=== PATIENT | male | born 1985 | race Caucasian/White ===

== ENCOUNTER 2017-04-14 13:44 | Emergency (ER) | payer MEDICAID ==
[~2017-04-14] VITALS: Ht 188 cm; Wt 102.1 kg
[~2017-04-14 13:44] MED LIST: CIPR500T78 PO; CLNZ.5T PO; DCS100C PO; DIPH1TAB25 PO; FAMO-119 PO; HYDR-757 PO; METR500T PO; Meloxicam; OMEP-10 PO; ONDA-42 PO; RABE20TA PO; SULF1TAB35 PO; TRAM-21 PO; TRAM-42 PO; TRAM50TA2 PO
[2017-04-14] MEDS ORDERED: PANTOPRAZOLE 40 MG/10 ML (PROTONIX) VIAL IV STA (14:39)
[2017-04-14] MEDS ORDERED: LACTATED RINGERS 1,000 ML IV ONE (14:45)
[2017-04-14] MEDS ORDERED: HYOSCYAMINE 0.125 MG (LEVSIN) TAB SL ONE (14:45)
[2017-04-14 15:26] LABS: BASOPHILS % (AUTO) 0 % (0-10); EOSINOPHILS # (AUTO) 0.1 10^3/uL (0.0-0.3); EOSINOPHILS % (AUTO) 2 % (0-10); HEMATOCRIT 44 % (40-54); HEMOGLOBIN 15.9 G/DL (13.3-17.7); LYMPHOCYTES # (AUTO) 2.4 X 10^3 (1.0-4.0); LYMPHOCYTES % (AUTO) 36 % (12-44); MEAN CORPUSCULAR HEMOGLOBIN 30 PG (25-34); MEAN CORPUSCULAR HGB CONC 37 G/DL (32-36); MEAN CORPUSCULAR VOLUME 82 FL (80-99); MEAN PLATELET VOLUME 11.1 FL (7.4-10.4); MONOCYTES # (AUTO) 0.6 X 10^3 (0.0-1.0); MONOCYTES % (AUTO) 9 % (0-12); NEUTROPHILS # (AUTO) 3.6 X 10^3 (1.8-7.8); NEUTROPHILS % (AUTO) 54 % (42-75); PLATELET COUNT 175 10^3/uL (130-400); RED CELL DISTRIBUTION WIDTH 12.4 % (10.0-14.5); WHITE BLOOD COUNT 6.8 10^3/uL (4.3-11.0)
[2017-04-14] MEDS ORDERED: IOHEXOL 350 MG/ML 100 ML (OMNIPAQUE 350) VIAL IV ONE (15:45)
[2017-04-14] MEDS ORDERED: NS 250 ML (IVPB) BAG IV ONE (15:45)
[2017-04-14 15:47] LABS: ALANINE AMINOTRANSFERASE 25 U/L (0-55); ALKALINE PHOSPHATASE 81 U/L (40-136); AMYLASE 79 U/L (25-125); BILIRUBIN,TOTAL 0.5 MG/DL (0.1-1.0); BUN/CREATININE RATIO 13; CALCIUM 9.5 MG/DL (8.5-10.1); CARBON DIOXIDE 21 MMOL/L (21-32); CHLORIDE 111 MMOL/L (98-107); CREATININE SERUM 0.84 MG/DL (0.60-1.30); GFR ESTIMATED > 60; GLUCOSE 89 MG/DL (70-105); LIPASE 18 U/L (8-78); MAGNESIUM 1.8 MG/DL (1.8-2.4); SODIUM 141 MMOL/L (135-145); TOTAL PROTEIN 6.9 GM/DL (6.4-8.2)
--- NOTE | 2017-04-14 16:10 | Diagnostic Imaging Report ---
INDICATION: Abdominal pain. COMPARISON: CT from same day. FINDINGS: Supine and upright views the abdomen demonstrate nonobstructive small bowel gas pattern. Mild amount of air and stool are seen scattered throughout the colon. No abnormal air-fluid levels or large collection of free intraperitoneal air is seen. No abnormal extraosseous calcifications or radiopaque foreign bodies are identified. Bony structures are age-appropriate. IMPRESSION: 1. Nonobstructive small bowel gas pattern. Dictated by: Dictated on workstation # [id number]
[2017-04-14] MEDS ORDERED: RECEIVED CONTRAST (Hold Metformin) IV SCH (16:15)
--- NOTE | 2017-04-14 16:16 | Diagnostic Imaging Report ---
PROCEDURE: CT abdomen and pelvis with contrast. TECHNIQUE: Multiple contiguous axial images were obtained through the abdomen and pelvis after administration of intravenous contrast. INDICATION: Upper mid gastric pain. Fever. COMPARISON: 08/29/2014. FINDINGS: Included portions of the lung bases are clear. CT ABDOMEN: Small bowel loops are nondistended. Normal appendix is identified. There are a few scattered colonic diverticuli, but no CT evidence of acute diverticulitis. The kidneys, adrenal glands, spleen, pancreas and liver have a normal CT appearance. There is no loculated fluid collection, free fluid or free air within the abdomen. No abnormal mesenteric or retrotracheal adenopathy is seen. Bony structures show no acute abnormality. CT PELVIS: Urinary bladder is grossly unremarkable. Pelvic phleboliths are noted. There is no loculated fluid collection, free fluid or free air within the pelvis. No abnormal lymph nodes are identified. Bony structures show no acute abnormality. IMPRESSION: 1. No acute abnormality within the abdomen or pelvis. 2. Colonic diverticulosis, but no CT evidence of acute diverticulitis. Dictated by: Dictated on workstation # [id number]
[2017-04-14 16:21] LABS: BILIRUBIN,URINE NEGATIVE (NEGATIVE); CLARITY,URINE CLEAR; COLOR,URINE YELLOW; GLUCOSE, URINE (UA) NEGATIVE (NEGATIVE); KETONES,URINE NEGATIVE (NEGATIVE); LEUKOCYTE ESTERASE ,URINE 1+ (NEGATIVE); NITRITE,URINE NEGATIVE (NEGATIVE); PH,URINE 6 (5-9); PROTEIN,URINE NEGATIVE (NEGATIVE); UROBILINOGEN,URINE NORMAL (NORMAL)
[2017-04-14] MEDS ORDERED: HYOS0.1283 SL (16:25)
[2017-04-14] MEDS ORDERED: TRAM-42 PO (16:25)
[2017-04-14] MEDS ORDERED: PANT40TA2 PO (16:25)
[2017-04-14] MEDS ORDERED: SUCR1TAB36 PO (16:25)
--- NOTE | 2017-04-14 16:25 | ED Abdominal Pain ---
General Chief Complaint: Abdominal/GI Problems Stated Complaint: ABD PAIN Nursing Triage Note: ARRIVED VIA AMB TO ROOM 04 WITH COMPLAINTS OF ABD PAIN FOR THE LAST THREE NIGHTS AND THEN AGAIN TODAY. Sepsis Screen: No Definite Risk Source of Information: Patient History of Present Illness Date Seen by Provider: Apr 14, 2017 Time Seen by Provider: 14:30 Initial Comments PT ARRIVES VIA POV FROM HOME C/O SHARP EPIGASTRIC PAIN X 3 DAYS--UNABLE TO SLEEP DUE TO PAIN HAS HAD INTERMITTENT EPIGASTRIC PAIN FOR YEARS HAS HAD EGD AND COLONOSCOPY IN THE PAST, AND HAS BEEN DX WITH GERD. STATES HE USED TO THROW UP EVERY MORNING FOR 10 YEARS. STATES HE USED TO BE ON ANTI-ACID MEDICATIONS, BUT WAS DOING WELL AND HAS NOT TAKEN ANY FOR OVER A YEAR. 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 SIMONE MCGHEE Allergies and Home Medications Allergies Coded Allergies: amoxicillin (Verified Allergy, Unknown, 09/15/05) Home Medications Clonazepam 0.5 Mg Tab, 1 MG PO TID PRN for ANXIETY, (Reported) Hyoscyamine Sulfate 0.125 Mg Tab.subl, 1-2 TAB SL Q4H, #15 Prescribed by: EUGENE MCMAHON on 04/14/17 1625 Pantoprazole Sodium 40 Mg Tablet.dr, 40 MG PO DAILY, #15 Prescribed by: EUGENE MCMAHON on 04/14/17 1625 Rabeprazole Sodium 20 Mg Tablet.dr, 20 MG PO BID, (Reported) Sucralfate 1 Gm Tablet, 1 GM PO QIDACHS, #60 Prescribed by: EUGENE MCMAHON on 04/14/17 1625 Tramadol HCl Unknown Strength Tablet, 50 MG PO BID, (Reported) Tramadol HCl 50 Mg Tablet, 50 MG PO Q4H, #20 Prescribed by: EUGENE MCMAHON on 04/14/17 1625 Review of Systems Constitutional: no symptoms reported Respiratory: No Symptoms Reported Cardiovascular: No Symptoms Reported Gastrointestinal: See HPI, Abdominal Pain, Denies Constipated, Denies Diarrhea , Denies Nausea, Poor Appetite, Denies Poor Fluid Intake, Denies Vomiting Genitourinary: No Symptoms Reported Musculoskeletal: no symptoms reported Skin: no symptoms reported Psychiatric/Neurological: No Symptoms Reported Endocrine: No Symptoms Reported Past Bntcges-Ypfork-Ajxupp Hx Patient Social History Alcohol Use: Denies Use Recreational Drug Use: Yes (THC) Drug of Choice: THC Smoking Status: Current Everyday Smoker (1 PPD) Type Used: Cigarettes (1 PPD) Recent Foreign Travel: No Contact w/Someone Who Travel: No Recent Infectious Disease Expo: No Immunizations Up To Date Date of Influenza Vaccine: Jan 28, 2014 Seasonal Allergies Seasonal Allergies: No Surgeries History of Surgeries: Yes (DENTAL SURGERY, EGD/COLONOSCOPY) Respiratory History of Respiratory Disorde: Yes (HX) Respiratory Disorders: Asthma Cardiovascular History of Cardiac Disorders: No Neurological History of Neurological Disord: No Reproductive System Hx Reproductive Disorders: No Genitourinary History of Genitourinary Disor: No Gastrointestinal History of Gastrointestinal Di: Yes (VOMITS EVERY DAY) Gastrointestinal Disorders: Gastroesophageal Reflux Musculoskeletal History of Musculoskeletal Dis: Yes (CHRONIC BACK AND KNEE PAIN) Musculoskeletal Disorders: Chronic Back Pain Endocrine History of Endocrine Disorders: No HEENT History of HEENT Disorders: No Cancer History of Cancer: No Psychosocial History of Psychiatric Problem: Yes ("PANIC ATTACKS") Behavioral Health Disorders: Anxiety Integumentary History of Skin or Integumenta: No Blood Transfusions History of Blood Disorders: No Physical Exam Vital Signs VS - Last 72 Hours, by Label 04/14/17 14:20 Temp 98.0 Pulse 80 Resp 18 B/P (MAP) 145/112 (123) Pulse Ox 96 Capillary Refill : Less Than 3 Seconds General Appearance: WD/WN, no apparent distress, other (LAYING COMPLETELY OUTSTRETCHED WITH ARMS OVER HEAD. 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, no motor/sensory deficits, alert, normal mood/affect, oriented x 3 Progress/Results/Core Measures Results/Orders Lab Results Laboratory Tests Test 04/14/17 15:15 04/14/17 16:15 Range/Units White Blood Count 6.8 4.3-11.0 10^3/uL Red Blood Count 5.30 4.35-5.85 10^6/uL Hemoglobin 15.9 13.3-17.7 G/DL Hematocrit 44 40-54 % Mean Corpuscular Volume 82 80-99 FL Mean Corpuscular Hemoglobin 30 25-34 PG Mean Corpuscular Hemoglobin Concent 37 H 32-36 G/DL Red Cell Distribution Width 12.4 10.0-14.5 % Platelet Count 175 130-400 10^3/uL Mean Platelet Volume 11.1 H 7.4-10.4 FL Neutrophils (%) (Auto) 54 42-75 % Lymphocytes (%) (Auto) 36 12-44 % Monocytes (%) (Auto) 9 0-12 % Eosinophils (%) (Auto) 2 0-10 % Basophils (%) (Auto) 0 0-10 % Neutrophils # (Auto) 3.6 1.8-7.8 X 10^3 Lymphocytes # (Auto) 2.4 1.0-4.0 X 10^3 Monocytes # (Auto) 0.6 0.0-1.0 X 10^3 Eosinophils # (Auto) 0.1 0.0-0.3 10^3/uL Basophils # (Auto) 0.0 0.0-0.1 10^3/uL Sodium Level 141 135-145 MMOL/L Potassium Level 4.0 3.6-5.0 MMOL/L Chloride Level 111 H 98-107 MMOL/L Carbon Dioxide Level 21 21-32 MMOL/L Anion Gap 9 5-14 MMOL/L Blood Urea Nitrogen 11 7-18 MG/DL Creatinine 0.84 0.60-1.30 MG/DL Estimat Glomerular Filtration Rate > 60 BUN/Creatinine Ratio 13 Glucose Level 89 70-105 MG/DL Calcium Level 9.5 8.5-10.1 MG/DL Magnesium Level 1.8 1.8-2.4 MG/DL Total Bilirubin 0.5 0.1-1.0 MG/DL Aspartate Amino Transf (AST/SGOT) 15 5-34 U/L Alanine Aminotransferase (ALT/SGPT) 25 0-55 U/L Alkaline Phosphatase 81 40-136 U/L Total Protein 6.9 6.4-8.2 GM/DL Albumin 4.0 3.2-4.5 GM/DL Amylase Level 79 25-125 U/L Lipase 18 8-78 U/L Urine Color YELLOW Urine Clarity CLEAR Urine pH 6 5-9 Urine Specific Plummer 1.015 L 1.016-1.022 Urine Protein NEGATIVE NEGATIVE Urine Glucose (UA) NEGATIVE NEGATIVE Urine Ketones NEGATIVE NEGATIVE Urine Nitrite NEGATIVE NEGATIVE Urine Bilirubin NEGATIVE NEGATIVE Urine Urobilinogen NORMAL NORMAL MG/DL Urine Leukocyte Esterase 1+ H NEGATIVE Urine RBC (Auto) NEGATIVE NEGATIVE Urine RBC NONE /HPF Urine WBC 0-2 /HPF Urine Crystals NONE /LPF Urine Bacteria NONE /HPF Urine Casts NONE /LPF Urine Mucus NEGATIVE /LPF Urine Culture Indicated NO My Orders Orders - EUGENE MCMAHON DO Saline Lock/Iv-Start (04/14/17 14:33) Amylase (04/14/17 14:33) Cbc With Automated Diff (04/14/17 14:33) Comprehensive Metabolic Panel (04/14/17 14:33) Lipase (04/14/17 14:33) Magnesium (04/14/17 14:33) Ua Culture If Indicated (04/14/17 14:33) Drug Screen Stat (Urine) (04/14/17 14:39) Lactated Ringers (Lr 1000 Ml Iv Solution (04/14/17 14:45) Hyoscyamine Sl Tablet (Levsin Sl Tablet) (04/14/17 14:45) Pantoprazole Injection (Protonix Injecti (04/14/17 14:39) Ct Abdomen/Pelvis W (04/14/17 15:32) Abdomen, Flat & Upright/Decub (04/14/17 15:32) Iohexol Injection (Omnipaque 350 Mg/Ml 1 (04/14/17 15:45) Ns (Ivpb) (Sodium Chloride 0.9%) (04/14/17 15:45) Received Contrast (Contrast Received) (04/14/17 16:15) Ketorolac Injection (Toradol Injection) (04/14/17 16:30) Medications Given in ED Current Medications Medications Dose Ordered Sig/Luis Miguel Route Start Time Stop Time Status Last Admin Dose Admin Hyoscyamine Sulfate 0.25 mg ONCE ONCE SL 04/14/17 14:45 04/14/17 14:46 DC 04/14/17 15:14 0.25 MG Iohexol 100 ml ONCE ONCE IV 04/14/17 15:45 04/14/17 16:00 DC 04/14/17 15:55 100 ML Lactated Ringer's 1,000 ml @ 0 mls/hr Q0M ONCE IV 04/14/17 14:45 04/14/17 14:46 DC 04/14/17 15:14 1,000 MLS/HR Sodium Chloride 250 ml ONCE ONCE IV 04/14/17 15:45 04/14/17 16:00 DC 04/14/17 15:56 80 ML Vital Signs/I&O Vital Sign - Last 12Hours 04/14/17 14:20 Temp 98.0 Pulse 80 Resp 18 B/P (MAP) 145/112 (123) Pulse Ox 96 Blood Pressure Mean: 123 Progress Note : Progress Note PAIN MUCH IMPROVED AT DISMISSAL Diagnostic Imaging Comments ABDOMEN XRAYS--NO ACUTE PROCESS CT ABDOMEN/PELVIS--DIVERTICULOSIS WITHOUT ACUTE DIVERTICULITIS, NO ACUTE PROCESS PER RADIOLOGIST REPORT @ 1620 Reviewed: Reviewed by Me Departure Impression Impression: Primary Impression: Epigastric abdominal pain Disposition: HOME, SELF-CARE Condition: Improved Departure-Patient Inst. Referrals: [facility] (PCP/Family) Primary Care Physician Patient Instructions: Acute Abdomen (Belly Pain), Adult (DC) Add. Discharge Instructions: CLEAR LIQUIDS--WATER, BROTH, JELLO, GATORADE TOMORROW IF YOU ARE BETTER, ADD BRATS DIET TO CLEAR LIQUIDS--BANANAS, RICE, APPLESAUCE, TOAST, SALTINES FOLLOW UP WITH [facility] THIS WEEK FOR FURTHER CARE, RETURN TO ER IF WORSE All discharge instructions reviewed with patient and/or family. Voiced understanding. Scripts Tramadol HCl (Ultram) 50 Mg Tablet 50 MG PO Q4H, #20 TAB Prov: EUGENE MCMAHON K DO 04/14/17 Pantoprazole Sodium (Protonix) 40 Mg Tablet.dr 40 MG PO DAILY, #15 TAB Prov: LISANDRO,EUGENE K DO 04/14/17 Hyoscyamine Sulfate (Levsin-Sl) 0.125 Mg Tab.subl 1-2 TAB SL Q4H for Abdominal Pain, #15 TAB Prov: JIMMIE MCMAHONA K DO 04/14/17 Sucralfate (Carafate) 1 Gm Tablet 1 GM PO VON, #60 TAB Prov: EUGENE MCMAHON DO 04/14/17 EUGENE MCMAHON DO Apr 14, 2017 16:25
[2017-04-14 16:29] LABS: WBC,URINE 0-2 /HPF
[2017-04-14] MEDS ORDERED: KETOROLAC 30 MG/ML VIAL IVP ONE (16:30)
[2017-04-14 16:34] LABS: AMPHETAMINE SCREEN, URINE POSITIVE (NEGATIVE); BARBITURATE SCREEN URINE NEGATIVE (NEGATIVE); BENZODIAZEPINES SCREEN URINE NEGATIVE (NEGATIVE); CANNABINOID SCREEN, URINE POSITIVE (NEGATIVE); COCAINE SCREEN URINE NEGATIVE (NEGATIVE); METHADONE STAT NEGATIVE (NEGATIVE); METHAMPHETAMINE SCREEN URINE S POSITIVE (NEGATIVE); OPIATE SCREEN URINE NEGATIVE (NEGATIVE); OXYCODONE STAT NEGATIVE (NEGATIVE); PROPOXYPHENE STAT NEGATIVE (NEGATIVE); TRICYCLIC ANTIDEPRESSANTS SCRE NEGATIVE (NEGATIVE)
[2017-04-14 16:59] VITALS: BP 143/91
--- OUTSIDE RECORDS SUMMARY | 2017-04-16 08:59 | XMS REPORT ---
Author REBA Rodríguez Organization [employer] Address Unknown Phone Unavailable Care Team Providers Care Bead Stringer Name Role Phone REBA MCGHEE CP Unavailable Allergies No Known Allergies Problems Problem Type Condition Code Onset Dates Condition Status Problem Blood in stool 578.1 Active Problem Lipoma of other skin and subcutaneous tissue 214.1 Active Problem Esophageal reflux 530.81 Active Problem Sebaceous cyst 706.2 Active Problem Hematemesis 578.0 Active Problem Diaphragmatic hernia without mention of obstruction or gangrene 553.3 Active Problem Unspecified gastritis and gastroduodenitis without mention of hemorrhage 535.50 Active Problem Irritable bowel syndrome 564.1 Active Medications Medication Code System Code Instructions Start Date End Date Status Dosage Carafate [facility] 45454188879 1 GM Orally before meals and at bedtime 1 tablet on an empty stomach Tramadol HCl [facility] [address]-63 50 mg Orally 3 times a day 1 tablet as needed Klonopin [facility] [address]-68 1 MG Orally 3 times a day PRN 1 tablet Results No Known Results Summary Purpose [employer] Submission
--- OUTSIDE RECORDS SUMMARY | 2017-04-16 08:59 | XMS REPORT ---
Author Author REBA MCGHEE [facility] Address [address] [place] [address] Care Team Providers Care Acid Painter Name Role Phone REBA MCGHEE Unavailable PROBLEMS Type Condition ICD9-CM Code [id number] Code Onset Dates Condition Status SNOMED Code Problem Diaphragmatic hernia without mention of obstruction or gangrene 553.3 Active 83477028 Problem Blood in stool 578.1 Active 641219001 Problem Sebaceous cyst 706.2 Active 554850598 Problem Lipoma of other skin and subcutaneous tissue 214.1 Active 871040730 Problem Irritable bowel syndrome 564.1 Active 15631711 Problem Hematemesis 578.0 Active 5476487 Problem Esophageal reflux 530.81 Active 934503121 Problem Unspecified gastritis and gastroduodenitis without mention of hemorrhage 535.50 Active 375370484 ALLERGIES Unknown Allergies SOCIAL HISTORY No smoking Hx information available PLAN OF CARE VITAL SIGNS MEDICATIONS Medication Instructions Dosage Frequency Start Date End Date Duration Status Carafate 1 GM Orally before meals and at bedtime 1 tablet on an empty stomach 30 Active Protonix 40 MG Orally Once a day 1 tablet 24h 30 Active RESULTS No Results PROCEDURES No Known procedures IMMUNIZATIONS No Known Immunizations
--- OUTSIDE RECORDS SUMMARY | 2017-04-16 08:59 | XMS REPORT ---
Author REBA Rodríguez Organization [employer] Address Unknown Phone Unavailable Care Team Providers Care Hand Coper Name Role Phone REBA MCGHEE CP Unavailable [...] Instructions Start Date End Date Status Dosage Tramadol HCl [facility] [address]-38 50 MG Orally every [address] Jay to sign in Arslan's absence 1 tablet as needed Results No Known Results Summary Purpose [employer] Submission
--- OUTSIDE RECORDS SUMMARY | 2017-04-16 08:59 | XMS REPORT ---
Author REBA Rodríguez Organization [employer] Address Unknown Phone Unavailable Care Team Providers Care Review Trainer Name Role Phone REBA MCGHEE CP Unavailable [...] Problem Irritable bowel syndrome 564.1 Active Medications No Known Medications Results No Known Results Summary Purpose [employer] Submission
--- OUTSIDE RECORDS SUMMARY | 2017-04-16 08:59 | XMS REPORT ---
Author Author JIM PETERSON Organization [facility] Address [address] [place] [address] Care Team Providers Care Autobody Technician Name Role Phone CAMPBELL PETERSONISTIN Unavailable PROBLEMS Type Condition ICD9-CM Code MER55-DC Code Onset Dates Condition Status SNOMED Code Problem Other chronic pain G89.29 Active 60325546 Problem Allergic rhinitis, unspecified allergic rhinitis trigger, unspecified rhinitis seasonality J30.9 Active 21187083 ALLERGIES Substance Reaction Event Type Date Status Penicillin V Potassium Unknown Drug Allergy June, Active SOCIAL HISTORY Never Assessed PLAN OF CARE Activity Details Follow Up prn Reason: VITAL SIGNS Height 72 in 2016-07-23 Weight 206.0 lbs 2016-07-23 Temperature 98.1 degrees Fahrenheit 2016-07-23 Heart Rate 60 bpm 2016-07-23 Respiratory Rate 20 2016-07-23 BMI 27.94 kg/m2 2016-07-23 Blood pressure systolic 130 mmHg 2016-07-23 Blood pressure diastolic 82 mmHg 2016-07-23 MEDICATIONS Medication Instructions Dosage Frequency Start Date End Date Duration Status Azithromycin 250 MG Orally Once a day 2 tablets on the first day, then 1 tablet daily for 4 days 24h June, June, 5 day(s) Active ZyrTEC Active RESULTS Name Result Date Reference Range STREP A (IN HOUSE) 2016-07-23 STREP A negative Control + Lot # [id number] Exp date [id number] PROCEDURES Procedure Date Ordered Result Body Site STREP A ASSAY W/OPTIC July 23, 2016 IMMUNIZATIONS No Known Immunizations MEDICAL (GENERAL) HISTORY Type Description Date Medical History Esophageal reflux Medical History Unspecified gastritis and gastroduodenitis without mention of hemorrhage Medical History Irritable bowel syndrome Medical History Diaphragmatic hernia without mention of obstruction or gangrene Medical History Lipoma of other skin and subcutaneous tissue Medical History Sebaceous cyst Medical History Blood in stool Medical History asthma Medical History attention deficit hyperactivity disorder Medical History diverticulitis Surgical History dental surg-tooth extraction Surgical History colonoscopy Hospitalization History severe diarrhea 2006
--- OUTSIDE RECORDS SUMMARY | 2017-04-16 08:59 | XMS REPORT ---
Author Author REBA MCGHEE [facility] Address [address] [place] [address] Care Team Providers Care Granite Setter Name Role Phone REBA MCGHEE Unavailable PROBLEMS Type Condition ICD9-CM Code [id number] Code Onset Dates Condition Status SNOMED Code Problem Other chronic pain G89.29 Active 23999803 Problem Allergic rhinitis, unspecified allergic rhinitis trigger, unspecified rhinitis seasonality J30.9 Active 01406566 ALLERGIES Unknown Allergies SOCIAL HISTORY No smoking Hx information available PLAN OF CARE VITAL SIGNS MEDICATIONS Medication Instructions Dosage Frequency Start Date End Date Duration Status Klonopin 1 MG Orally 3 times a day PRN 1 tablet 28 days Active Tramadol HCl 50 mg Orally 3 times a day 1 tablet as needed 8h 28 days Active RESULTS No Results PROCEDURES No Known procedures IMMUNIZATIONS No Known Immunizations
--- OUTSIDE RECORDS SUMMARY | 2017-04-16 08:59 | XMS REPORT ---
Author REBA Rodríguez Organization [employer] Address Unknown Phone Unavailable Care Team Providers Care Merchandise Flow Team Member Name Role Phone REBA MCGHEE CP Unavailable [...] Date End Date Status Dosage Tramadol HCl [facility] [address]-04 50 MG Orally every 6 hrs. PT MUST COME TO APR APPT FOR FURTHER REFILLS 1 tablet as needed Results No Known Results Summary Purpose [employer] Submission
--- OUTSIDE RECORDS SUMMARY | 2017-04-16 08:59 | XMS REPORT ---
Author Author REBA MCGHEE Organization [facility] Address [address] [place] [address] Care Team Providers Care High Density Press Operator Name Role Phone REBA MCGHEE Unavailable PROBLEMS Type Condition ICD9-CM Code UPH03-VT Code Onset Dates Condition Status SNOMED Code Problem Other chronic pain G89.29 Active 89942063 Problem Allergic rhinitis, unspecified allergic rhinitis trigger, unspecified rhinitis seasonality J30.9 Active 57913354 ALLERGIES No Information SOCIAL HISTORY Never Assessed PLAN OF CARE VITAL SIGNS MEDICATIONS Medication Instructions Dosage Frequency Start Date End Date Duration Status Tramadol HCl 50 MG Orally 4 times a day 1 tablet as needed 6h 28 days Active Klonopin 1 MG Orally 3 times a day PRN 1 tablet 28 days Active RESULTS No Results PROCEDURES No Known procedures IMMUNIZATIONS No Known Immunizations MEDICAL (GENERAL) HISTORY [...]
--- OUTSIDE RECORDS SUMMARY | 2017-04-16 08:59 | XMS REPORT ---
Author REBA Rodríguez Organization [employer] Address Unknown Phone Unavailable Care Team Providers Care Warehouse Logistics Coordinator Name Role Phone REBA MCGHEE CP Unavailable [...] Date End Date Status Dosage Tramadol HCl [facility] [address]-87 50 MG Orally every 6 hrs. PT MUST HAVE APPT FOR FURTHER REFILLS 1 tablet as needed Results No Known Results Summary Purpose [employer] Submission
--- OUTSIDE RECORDS SUMMARY | 2017-04-16 09:00 | XMS REPORT ---
Author Author REBA MCGHEE [facility] Address [address] [place] [address] Care Team Providers Care Metal And Plastic Heater Name Role Phone REBA MCGHEE Unavailable PROBLEMS Type Condition ICD9-CM Code NSF92-LB Code Onset Dates Condition Status SNOMED Code Problem Diaphragmatic hernia without mention of obstruction or gangrene 553.3 Active 58221020 Problem Blood in stool 578.1 Active 252177304 Problem Sebaceous cyst 706.2 Active 258318659 Problem Lipoma of other skin and subcutaneous tissue 214.1 Active 187276791 Problem Irritable bowel syndrome 564.1 Active 85547692 Problem Hematemesis 578.0 Active 7959323 Problem Esophageal reflux 530.81 Active 228270314 Problem Unspecified gastritis and gastroduodenitis without mention of hemorrhage 535.50 Active 008466618 ALLERGIES Unknown Allergies SOCIAL HISTORY No smoking Hx information available PLAN OF CARE VITAL SIGNS MEDICATIONS Unknown Medications RESULTS No Results PROCEDURES No Known procedures IMMUNIZATIONS No Known Immunizations
--- OUTSIDE RECORDS SUMMARY | 2017-04-16 09:00 | XMS REPORT ---
Author Author REBA MCGHEE [facility] Address [address] [place] [address] Care Team Providers Care Paper Roller Name Role Phone REBA MCGHEE Unavailable PROBLEMS Type Condition ICD9-CM Code MZH31-MU Code Onset Dates Condition Status SNOMED Code Problem Other chronic pain G89.29 Active 56956980 Problem Allergic rhinitis, unspecified allergic rhinitis trigger, unspecified rhinitis seasonality J30.9 Active 90447438 ALLERGIES Substance Reaction Event Type Date Status Penicillin V Potassium Unknown Drug Allergy Apr, Active SOCIAL HISTORY Never Assessed PLAN OF CARE Activity Details Follow Up 4 Weeks Reason: VITAL SIGNS Height 72 in 2016-04-30 Weight 201.0 lbs 2016-04-30 Temperature 97.7 degrees Fahrenheit 2016-04-30 Heart Rate 66 bpm 2016-04-30 Respiratory Rate 20 2016-04-30 BMI 27.26 kg/m2 2016-04-30 Blood pressure systolic 132 mmHg 2016-04-30 Blood pressure diastolic 88 mmHg 2016-04-30 MEDICATIONS Medication Instructions Dosage Frequency Start Date End Date Duration Status Tramadol HCl 50 mg Orally 4 times a day 1 tablet as needed 6h Apr, 28 days Active Klonopin 1 MG Orally 3 times a day PRN 1 tablet 28 days Active Carafate 1 GM Orally before meals and at bedtime 1 tablet on an empty stomach 30 Active Cetirizine HCl 10 mg Orally Once a day 1 tablet 24h Dec, June, 30 day(s) Active Cipro 500 MG Orally Twice a day 1 tablet 12h Apr, 10 day(s) Active Protonix 40 mg Orally Once a day 1 tablet 24h 30 Active Dicyclomine HCl 20 mg 1 tablet 6h Active RESULTS No Results PROCEDURES No Known [...]
--- OUTSIDE RECORDS SUMMARY | 2017-04-16 09:00 | XMS REPORT ---
Author REBA Rodríguez Organization [employer] Address Unknown Phone Unavailable Care Team Providers Care Backup Sawyer Name Role Phone REBA MCGHEE CP Unavailable [...]
--- OUTSIDE RECORDS SUMMARY | 2017-04-16 09:00 | XMS REPORT ---
Author Author REBA MCGHEE Organization [employer] Address Unknown Phone Unavailable Care Team Providers Care Pocket Machine Operator Name Role Phone REBA MCGHEE CP Unavailable [...] Instructions Start Date End Date Status Dosage Klonopin [facility] [address]-73 1 MG Orally 3 times a day PRN 1 tablet Results No Known Results Summary Purpose [employer] Submission
--- OUTSIDE RECORDS SUMMARY | 2017-04-16 09:00 | XMS REPORT ---
Author REBA Rodríguez [facility] eClinicalWorks Address Unknown Phone Unavailable Care Team Providers Care Track Service Worker Name Role Phone REBA MCGHEE CP Unavailable Allergies, Adverse Reactions, Alerts Substance Reaction Event Type Penicillin V Potassium Info Not Available Drug Allergy Problems Problem Type Condition Code Onset Dates Condition Status Problem Blood in stool 578.1 Active Assessment Colitis K52.9 Active Problem Lipoma of other skin and [...] Instructions Start Date End Date Status Dosage Protonix [facility] [address]-28 40 MG Orally Once a day Apr 06, 2015 1 tablet Klonopin [facility] [address]-07 1 MG Orally 3 times a day PRN 1 tablet Dicyclomine HCl [facility] 69734529984 20 MG TAKE ONE TABLET BY MOUTH FOUR TIMES DAILY NEEDED Tramadol HCl [facility] [address]-20 50 MG Orally every 6 hrs. PT MUST COME TO APR APPT FOR FURTHER REFILLS 1 tablet as needed Zofran ODT [facility] [address]-07 4 mg Apr 04, 2014 take 1 tablets by Oral route every 8 hours PRN Nausea or Vomiting Zantac [facility] [address]-41 150 MG Orally Twice a day 1 tablet Flagyl [facility] [address]-98 500 MG Orally 2 times a day Apr 06, 2015 Apr 13, 2015 1 tablet Procedures Procedure Coding System Code Date Office Visit, Est Pt., Level 3 CPT-4 27348 Apr 06, 2015 Vital Signs Date/Time: Apr 06, 2015 Temperature 98.2 F Weight 201 lbs Height 72 in BMI 27.26 Index Blood Pressure Diastolic 98 mmHg Blood Pressure Systolic 148 mmHg Cardiac Monitoring Heart Rate 64 bpm Results No Known Results Summary Purpose eClinicalWorks Submission
--- OUTSIDE RECORDS SUMMARY | 2017-04-16 09:00 | XMS REPORT ---
Author Author REBA MCGHEE [facility] Address [address] [place] [address] Care Team Providers Care Optimization Engineer Name Role Phone REBA MCGHEE Unavailable PROBLEMS Type Condition ICD9-CM Code [id number] Code Onset Dates Condition Status SNOMED Code Problem Diaphragmatic hernia without mention of obstruction or gangrene 553.3 Active 61859399 Problem Blood in stool 578.1 Active 646730870 Problem Sebaceous cyst 706.2 Active 937314229 Problem Lipoma of other skin and subcutaneous tissue 214.1 Active 162836745 Problem Irritable bowel syndrome 564.1 Active 06555856 Problem Hematemesis 578.0 Active 9532361 Problem Esophageal reflux 530.81 Active 852505589 Problem Unspecified gastritis and gastroduodenitis without mention of hemorrhage 535.50 Active 888474117 ALLERGIES Unknown Allergies SOCIAL HISTORY No smoking Hx information available PLAN OF CARE VITAL SIGNS MEDICATIONS Medication Instructions Dosage Frequency Start Date End Date Duration Status Klonopin 1 MG Orally 3 times a day PRN 1 tablet Active Tramadol HCl 50 mg Orally 3 times a day 1 tablet as needed 8h Active RESULTS No Results PROCEDURES No Known procedures IMMUNIZATIONS No Known Immunizations
--- OUTSIDE RECORDS SUMMARY | 2017-04-16 09:00 | XMS REPORT ---
Author Author REBA MCGHEE Organization eClinicalWorks Address Unknown Phone Unavailable Care Team Providers Care Automotive Product Engineer Name Role Phone REBA MCGHEE CP Unavailable [...] Date End Date Status Dosage Tramadol HCl [facility] [address]-56 50 mg Orally 3 times a day 1 tablet as needed Results No Known Results Summary Purpose eClinicalWorks Submission
--- OUTSIDE RECORDS SUMMARY | 2017-04-16 09:00 | XMS REPORT ---
Author Author REBA MCGHEE Organization eClinicalWorks Address Unknown Phone Unavailable Care Team Providers Care Instructor Private Name Role Phone REBA MCGHEE CP Unavailable [...] Date End Date Status Dosage Tramadol HCl [facility] [address]-24 50 mg Orally 3 times a day 1 tablet as needed Results No Known Results Summary Purpose eClinicalWorks Submission
--- OUTSIDE RECORDS SUMMARY | 2017-04-16 09:00 | XMS REPORT ---
Author REBA Rodríguez [facility] eClinicalWorks Address Unknown Phone Unavailable Care Team Providers Care Workers Compensation Paralegal Name Role Phone REBA MCGHEE CP Unavailable Allergies, Adverse Reactions, Alerts Substance Reaction Event Type Penicillin V Potassium Info Not Available Drug Allergy Problems Problem Type Condition Code Onset Dates Condition Status Problem Blood in stool 578.1 Active Assessment Irritable bowel syndrome with diarrhea K58.0 Active Problem Lipoma of other skin and [...] Date End Date Status Dosage Tramadol HCl [facility] [address]-97 50 MG Orally every 6 hrs. PT MUST COME TO APR APPT FOR FURTHER REFILLS 1 tablet as needed Zofran ODT [facility] [address]-24 4 mg Apr 04, 2014 take 1 tablets by Oral route every 8 hours PRN Nausea or Vomiting Dicyclomine HCl [facility] 67241253871 20 MG TAKE ONE TABLET BY MOUTH FOUR TIMES DAILY NEEDED Flagyl [facility] [address]-04 500 MG Orally 2 times a day Apr 06, 2015 Apr 13, 2015 1 tablet Klonopin [facility] [address]-84 1 MG Orally 3 times a day PRN 1 tablet dicyclomine NDC 0 20 mg Oct 10, 2013 take 1 tablet by Oral route 4 times per day PRN voucher 1[place] [address]-04 40 MG Orally Once a day Apr 06, 2015 1 tablet Procedures Procedure Coding System Code Date Office Visit, Est Pt., Level 3 CPT-4 43782 Apr 10, 2015 Vital Signs Date/Time: Apr 10, 2015 Temperature 97.8 F Weight 203.7 lbs Height 72 in BMI 27.62 Index Blood Pressure Diastolic 90 mmHg Blood Pressure Systolic 130 mmHg Cardiac Monitoring Heart Rate 68 bpm Results No Known Results Summary Purpose eClinicalWorks Submission
--- OUTSIDE RECORDS SUMMARY | 2017-04-16 09:00 | XMS REPORT ---
Author Author REBA MCGHEE [facility] Address [address] [place] [address] Care Team Providers Care Film Touch Up Inspector Name Role Phone REBA MCGHEE Unavailable PROBLEMS Type Condition ICD9-CM Code [id number] Code Onset Dates Condition Status SNOMED Code Problem Other chronic pain G89.29 Active 58924008 Problem Allergic rhinitis, unspecified allergic rhinitis trigger, unspecified rhinitis seasonality J30.9 Active 19652805 ALLERGIES Unknown Allergies SOCIAL HISTORY No smoking [...]
--- OUTSIDE RECORDS SUMMARY | 2017-04-16 09:00 | XMS REPORT ---
Author REBA Rodríguez [facility] eClinicalWorks Address Unknown Phone Unavailable Care Team Providers Care Survey Research Professor Name Role Phone REBA MCGHEE CP Unavailable Allergies No Known Allergies Problems Problem Type Condition ICD-9 Code Onset Dates Condition Status Problem Blood [...] HCl [facility] [address]-12 50 MG Orally every [address] Jay to sign in Arslan's absence 1 tablet as needed Results No Known Results Summary Purpose eClinicalWorks Submission
--- OUTSIDE RECORDS SUMMARY | 2017-04-16 09:00 | XMS REPORT ---
Author REBA Rodríguez [facility] eClinicalWorks Address Unknown Phone Unavailable Care Team Providers Care Shift Boss Name Role Phone REBA MCGHEE CP Unavailable Allergies, Adverse Reactions, Alerts Substance Reaction Event Type Penicillin V Potassium Info Not Available Drug Allergy Problems Problem Type Condition Code Onset Dates Condition Status Problem Blood in stool 578.1 Active Problem Hematemesis 578.0 Active Problem Diaphragmatic hernia without mention of obstruction or gangrene 553.3 Active Problem Other chronic pain G89.29 Active Problem Sebaceous cyst 706.2 Active Problem Allergic rhinitis, unspecified allergic rhinitis trigger, unspecified rhinitis seasonality J30.9 Active Problem Unspecified gastritis and gastroduodenitis without mention of hemorrhage 535.50 Active Problem Irritable bowel syndrome 564.1 Active Problem Lipoma of other skin and subcutaneous tissue 214.1 Active Problem Esophageal reflux 530.81 Active Assessment Other chronic pain G89.29 Active Assessment Low back pain M54.5 Active Assessment Pain in right knee M25.561 Active Assessment Encounter for immunization Z23 Active Assessment Pain in left knee M25.562 Active Assessment Allergic rhinitis, unspecified allergic rhinitis trigger, unspecified rhinitis seasonality J30.9 Active Medications Medication Code System Code Instructions Start Date End Date Status Dosage Protonix [facility] [address]-45 40 mg Orally Once a day 1 tablet Cetirizine HCl [facility] [address]-55 10 mg Orally Once a day Jan 02, 2016 June 30, 2016 1 tablet Dicyclomine HCl [facility] [address]-82 20 mg 4 times a day 1 tablet Klonopin [facility] [address]-98 1 MG Orally 3 times a day PRN 1 tablet Tramadol HCl [facility] [address]-71 50 mg Orally 3 times a day 1 tablet as needed Carafate [facility] 21444250442 1 GM Orally before meals and at bedtime 1 tablet on an empty stomach Procedures Procedure Coding System Code Date FLUARIX QUAD P-FREE 3 AND UP .50 2015 CPT-4 06133 Jan 02, 2016 SINGLE IMMUNIZATION ADMIN CPT-4 78191 Jan 02, 2016 Office Visit, Est Pt., Level 3 CPT-4 97793 Jan 02, 2016 Vital Signs Date/Time: Jan 02, 2016 Cardiac Monitoring Heart Rate 68 bpm Weight 185.0 lbs Height 72 in BMI 25.09 Index Blood Pressure Diastolic 78 mmHg Blood Pressure Systolic 118 mmHg Results No Known Results Immunizations Vaccine Administration Date FLUARIX QUAD P-FREE 3 AND UP .50 2015Jan 02, 2016 Summary Purpose eClinicalWorks Submission
--- OUTSIDE RECORDS SUMMARY | 2017-04-16 09:01 | XMS REPORT | Continuity of Care Document ---
Author Author [facility] Address Unknown Phone Unavailable Allergies Active Description Code Type Severity Reaction Onset Reported/Identified Relationship to Patient Clinical Status Yes amoxicillin [id number] Drug Allergy Unknown N/A 09/15/2005 Yes Penicillins Drug Allergy 03/03/2010 Yes Penicillins Drug Allergy N/A N/A 03/03/2010 Medications There is no data. Problems Date Dx Coded Attending Type Code Diagnosis Diagnosed By 12/07/2007 DWAIN LEIGH DO 477.9 Rhinitis Allergic 12/07/2007 DWAIN LEIGH DO V58.69 MEDICATION HIGH RISK 12/07/2007 DWAIN LEIGH DO 477.9 Rhinitis Allergic 12/07/2007 DWAIN LEIGH DO V58.69 MEDICATION HIGH RISK 12/07/2007 477.9 Rhinitis Allergic 12/07/2007 V58.69 MEDICATION HIGH RISK 12/07/2007 REBA MCGHEE APRN 477.9 Rhinitis Allergic 12/07/2007 REBA MCGHEE APRN V58.69 MEDICATION HIGH RISK 12/07/2007 REBA MCGHEE APRN 477.9 Rhinitis Allergic 12/07/2007 REBA MCGHEE APRN V58.69 MEDICATION HIGH RISK 12/07/2007 REBA MCGHEE APRN 477.9 Rhinitis Allergic 12/07/2007 REBA MCGHEE APRN V58.69 MEDICATION HIGH RISK 12/07/2007 REBA MCGHEE APRN 477.9 Rhinitis Allergic 12/07/2007 REAB MCGHEE APRN V58.69 MEDICATION HIGH RISK 06/26/2008 DWAIN LEIGH DO 883.0 Open Wound Of Fingers Without Complication 06/26/2008 DWAIN LEIGH DO 883.0 Open Wound Of Fingers Without Complication 06/26/2008 883.0 Open Wound Of Fingers Without Complication 06/26/2008 REBA MCGHEE APRN 883.0 Open Wound Of Fingers Without Complication 06/26/2008 REBA MCGHEE APRN 883.0 Open Wound Of Fingers Without Complication 06/26/2008 REBA MCGHEE APRN 883.0 Open Wound Of Fingers Without Complication 06/26/2008 REBA MCGHEE APRN 883.0 Open Wound Of Fingers Without Complication 10/08/2008 LEIGH DO, DWAIN K 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 10/08/2008 LEIGH DO, DWAIN K 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 10/08/2008 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 10/08/2008 REBA MCGHEE APRN 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 10/08/2008 REBA MCGHEE APRN 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 10/08/2008 REBA MCGHEE APRN 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 10/08/2008 REBA MCGHEE APRN 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 11/01/2009 Ot 558.9 11/01/2009 Ot 789.00 03/03/2010 LEIGH DO DWAIN K 724.5 BACK PAIN, GENERAL 03/03/2010 LEIGH DO, DWAIN K 724.5 BACK PAIN, GENERAL 03/03/2010 724.5 BACK PAIN, GENERAL 03/03/2010 REBA MCGHEE APRN 724.5 BACK PAIN, GENERAL 03/03/2010 REBA MCGHEE APRN 724.5 BACK PAIN, GENERAL 03/03/2010 REBA MCGHEE APRN 724.5 BACK PAIN, GENERAL 03/03/2010 REBA MCGHEE APRN 724.5 BACK PAIN, GENERAL 03/12/2010 LEIGH DO, DWAIN K 521.00 Unspecified Dental Caries 03/12/2010 LEIGH DO, DWAIN K 521.00 Unspecified Dental Caries 03/12/2010 521.00 Unspecified Dental Caries 03/12/2010 REBA MCGHEE APRN 521.00 Unspecified Dental Caries 03/12/2010 REBA MCGHEE APRN 521.00 Unspecified Dental Caries 03/12/2010 REBA MCGHEE APRN 521.00 Unspecified Dental Caries 03/12/2010 REBA MCGHEE APRN 521.00 Unspecified Dental Caries 06/09/2010 LEIGH DO, DWAIN K 462 Pharyngitis Acute 06/09/2010 LEIGH DO, DWAIN K 465.9 Upper Respiratory Infection 06/09/2010 LEIGH DO, DWAIN K 462 Pharyngitis Acute 06/09/2010 LEIGH DO, DWAIN K 465.9 Upper Respiratory Infection 06/09/2010 462 Pharyngitis Acute 06/09/2010 465.9 Upper Respiratory Infection 06/09/2010 REBA MCGHEE APRN T 462 Pharyngitis Acute 06/09/2010 LITZY JALLOHN, REBA T 465.9 Upper Respiratory Infection 06/09/2010 LITZY BUSINESS LINE MANAGER, REBA T 462 Pharyngitis Acute 06/09/2010 LITZY BUSINESS LINE MANAGERREBA T 465.9 Upper Respiratory Infection 06/09/2010 LITZY JALLOHNREBA T 462 Pharyngitis Acute 06/09/2010 LITZY JALLOHNREBA T 465.9 Upper Respiratory Infection 06/09/2010 LITZY JALLOHNREBA T 462 Pharyngitis Acute 06/09/2010 ERBA MCGHEE APRN T 465.9 Upper Respiratory Infection 07/31/2010 MARY LEIGH DOA K 682.9 Cellulitis And Abscess Of Unspecified Sites 07/31/2010 DWAIN LEIGH DO K 682.9 Cellulitis And Abscess Of Unspecified Sites 07/31/2010 682.9 Cellulitis And Abscess Of Unspecified Sites 07/31/2010 REBA MCGHEE APRN 682.9 Cellulitis And Abscess Of Unspecified Sites 07/31/2010 REBA MCGHEE APRN 682.9 Cellulitis And Abscess Of Unspecified Sites 07/31/2010 REBA MCGHEE APRN 682.9 Cellulitis And Abscess Of Unspecified Sites 07/31/2010 REBA MCGHEE APRN 682.9 Cellulitis And Abscess Of Unspecified Sites 03/20/2011 MARY LEIGH DOA K 578.0 HEMATEMESIS 03/20/2011 MARY LEIGH DOA K 578.0 HEMATEMESIS 03/20/2011 578.0 HEMATEMESIS 03/20/2011 REBA MCGHEE APRN 578.0 HEMATEMESIS 03/20/2011 REBA MCGHEE APRN 578.0 HEMATEMESIS 03/20/2011 REBA MCGHEE APRN 578.0 HEMATEMESIS 03/20/2011 REBA MCGHEE APRN 578.0 HEMATEMESIS 11/11/2011 MARY LEIGH DOA K 706.2 Sebaceous Cyst 11/11/2011 LEIGH DO DWAIN K 706.2 Sebaceous Cyst 11/11/2011 706.2 Sebaceous Cyst 11/11/2011 REBA MCGHEE APRN 706.2 Sebaceous Cyst 11/11/2011 REBA MCGHEE APRN T 706.2 Sebaceous Cyst 11/11/2011 LITZY VELÁSQUEZ, REBA Mosquera 706.2 Sebaceous Cyst 11/11/2011 LITZY VELÁSQUEZ, REBA T 706.2 Sebaceous Cyst 11/21/2011 LEIGH DO, DWAIN K V58.32 Suture Removal 11/21/2011 LEIGH DO, DWAIN K V58.32 Suture Removal 11/21/2011 V58.32 Suture Removal 11/21/2011 REBA MCGHEE APRN V58.32 Suture Removal 11/21/2011 LITZY JALLOHN, REBA Mosquera V58.32 Suture Removal 11/21/2011 LITZY VELÁSQUEZ, REBA Mosquera V58.32 Suture Removal 11/21/2011 LITZY VELÁSQUEZ, REBA Mosquera V58.32 Suture Removal 02/01/2012 LEIGH DO, DWAIN K 789.00 ABDOMINAL PAIN UNSPECIFIED SITE 02/01/2012 LEIGH DO, DWAIN K 789.00 ABDOMINAL PAIN UNSPECIFIED SITE 02/01/2012 789.00 ABDOMINAL PAIN UNSPECIFIED SITE 02/01/2012 REBA MCGHEE APRN 789.00 ABDOMINAL PAIN UNSPECIFIED SITE 02/01/2012 REBA MCGHEE APRN 789.00 ABDOMINAL PAIN UNSPECIFIED SITE 02/01/2012 REBA MCGHEE APRN 789.00 ABDOMINAL PAIN UNSPECIFIED SITE 02/01/2012 REBA MCGHEE APRN T 789.00 ABDOMINAL PAIN UNSPECIFIED SITE 09/05/2012 535.50 UNSPECIFIED GASTRITIS AND GASTRODUODENITIS (WITHOUT HEMORRHAGE) 09/05/2012 REBA MCGHEE APRN 535.50 UNSPECIFIED GASTRITIS AND GASTRODUODENITIS (WITHOUT HEMORRHAGE) 09/05/2012 REBA MCGHEE APRN 535.50 UNSPECIFIED GASTRITIS AND GASTRODUODENITIS (WITHOUT HEMORRHAGE) 09/05/2012 REBA MCGHEE APRN 535.50 UNSPECIFIED GASTRITIS AND GASTRODUODENITIS (WITHOUT HEMORRHAGE) 09/05/2012 REBA MCGHEE APRN 535.50 UNSPECIFIED GASTRITIS AND GASTRODUODENITIS (WITHOUT HEMORRHAGE) 10/03/2012 530.81 GERD 10/03/2012 REBA MCGHEE APRN 530.81 GERD 10/03/2012 REBA MCGHEE APRN 530.81 GERD 10/03/2012 REBA MCGHEE APRN 530.81 GERD 10/03/2012 REBA MCGHEE APRN 530.81 GERD 10/10/2012 FRANCK CARSON, JOHN iVllar Ot 530.11 10/10/2012 FRANCK CARSON, JOHN Villar Ot 535.50 04/04/2013 REBA MCGHEE APRN 706.2 SEBACEOUS CYST 04/04/2013 REBA MCGHEE APRN T 706.2 SEBACEOUS CYST 04/04/2013 REBA MCGHEE APRN 706.2 SEBACEOUS CYST 04/04/2013 REBA MCGHEE APRN 706.2 SEBACEOUS CYST 09/19/2013 REBA SUN DO Ot 535.50 09/19/2013 REBA SUN DO Ot 558.9 09/19/2013 DINOREBA DWYER DO Ot 787.01 09/19/2013 REBA SUN DO Ot 787.91 09/19/2013 REBA SUN DO Ot 789.00 09/22/2013 REBA MCGHEE APRN 553.3 DIAPHRAGMATIC HERNIA WITHOUT OBSTRUCTION OR GANGRENE 09/22/2013 REBA MCGHEE APRN 578.1 BLOOD IN STOOL 09/22/2013 REBA MCGHEE APRN 553.3 DIAPHRAGMATIC HERNIA WITHOUT OBSTRUCTION OR GANGRENE 09/22/2013 REBA MCGHEE APRN 578.1 BLOOD IN STOOL 10/10/2013 REBA MCGHEE APRN 564.1 IRRITABLE BOWEL SYNDROME 08/15/2014 FRANCK CARSON, JOHN Villar Ot V72.84 08/15/2014 LISANDRO BROWN, EUGENE K Ot 719.47 08/15/2014 LISANDRO , EUGENE K Ot 845.00 08/15/2014 LISANDRO , EUGENE K Ot E000.8 08/15/2014 LISANDRO BROWN, EUGENE K Ot E849.0 08/15/2014 [place] , EUGENE K Ot E927.0 08/15/2014 FRANCK CAROSN, JOHN Villar Ot V72.84 08/29/2014 FRANCK CARSON, JOHN Villar Ot V72.84 08/29/2014 SITA TURNER BUSINESS LINE MANAGER Ot 562.11 08/29/2014 SITA TURNER APRN Ot 789.00 11/02/2014 SUMIT KEENE DO Ot 562.10 11/22/2014 SUMIT KEENE DO Ot 562.10 Procedures Code Description [place] [address] STOOL FOR O & P 02/01/2012 44339 EXCISION BENIGN LESION 1.1- 2 cm (specify location in [facility]) 04/11/2013 Emanuel Johnson 09/22/2013 GENERAL S SUMIT KEENE 09/22/2013 Results There is no data. Encounters ACCT No. Visit Date/Time Discharge Status Pt. Type Provider Facility Loc./Unit Complaint [id number] 10/10/2013 15:29:00 10/10/2013 23:59:59 CLS Outpatient REBA MCGHEE APRN [id number] 09/22/2013 14:01:00 09/22/2013 23:59:59 CLS Outpatient REBA MCGHEE APRN [id number] 04/11/2013 15:17:00 04/11/2013 23:59:59 CLS Outpatient REBA MCGHEE APRN [id number] 04/04/2013 15:29:00 04/04/2013 23:59:59 CLS Outpatient REBA MCGHEE APRN [id number] 02/01/2012 12:34:00 02/01/2012 23:59:59 CLS Outpatient DWAIN LEIGH DO [id number] 12/30/2011 13:56:00 12/30/2011 23:59:59 CLS Outpatient DWAIN LEIGH DO [id number] 10/03/2012 15:03:00 Document Registration [id number] 10/30/2014 11:17:00 10/30/2014 23:59:59 CLS Outpatient SUMIT KEENE DO [facility] [id number] 10/25/2014 05:54:00 10/25/2014 23:59:59 CLS Outpatient SUMIT KEENE DO [facility] [id number] 08/29/2014 12:20:00 08/29/2014 16:35:00 DIS Emergency SITA TURNER APRN [facility] ER [id number] 08/15/2014 21:57:00 08/15/2014 23:27:00 DIS Emergency EUGENE MCMAHON DO [facility] [id number] 09/19/2013 01:26:00 09/19/2013 03:43:00 DIS Emergency REBA SUN DO [facility] [id number] 05/23/2013 16:11:00 05/23/2013 23:59:59 CLS Outpatient [id number] 10/10/2012 11:01:00 10/10/2012 13:00:00 DIS Outpatient JOHN JUÁREZ MD [facility] [id number] 10/05/2012 07:16:00 10/05/2012 23:59:59 CLS Outpatient JOHN JUÁREZ MD [facility] [id number] 08/15/2014 21:57:00 Document Registration [id number] 08/15/2014 21:57:00 Document Registration
--- OUTSIDE RECORDS SUMMARY | 2017-04-16 09:01 | XMS REPORT ---
Author Author REBA MCGHEE Organization eClinicalWorks Address Unknown Phone Unavailable Care Team Providers Care Truck Leasing Manager Name Role Phone REBA MCGHEE CP Unavailable [...] Date End Date Status Dosage Tramadol HCl [facility] [address]-76 50 MG Orally every 6 hrs 1 tablet as needed Results No Known Results Summary Purpose eClinicalWorks Submission
== END 2017-04-14 16:59 | disposition home or self-care (01) ==
LOC: EDUNIT# 13:44 → ER 13:46
DX: R10.13 Epigastric pain (principal); J45.909 Unspecified asthma, uncomplicated; K21.9 Gastro-esophageal reflux disease without esophagitis; F41.9 Anxiety disorder, unspecified; F17.210 Nicotine dependence, cigarettes, uncomplicated; F12.10 Cannabis abuse, uncomplicated; Z88.1 Allergy status to other antibiotic agents
CPT/HCPCS: 36415; 74019; 74177; 80053; 80306; 81000; 82150; 83690; 83735; 85025; 96361; 96374; 96375

== ENCOUNTER → 2017-04-27 | Outpatient (CLI) | payer MEDICAID ==
[~2017-04-27] MED LIST changes: +HYOS0.1283 SL; +PANT40TA2 PO; +SUCR1TAB36 PO
--- NOTE | 2017-04-27 10:08 | Diagnostic Imaging Report ---
INDICATION: Abdominal pain Gallbladder sonography is performed in a routine fashion. The liver shows normal echogenicity with no focal lesions. The gallbladder shows 2 non-mobile non-shadowing echogenic foci, which are likely small polyps. The larger measuring about 10 mm, the smaller measuring about 5 mm. Common bile duct is not well-seen. There is no intrahepatic biliary dilatation. Pancreas is not seen due to overlying gas. The right kidney showed no hydronephrosis or focal mass. There is no ascites. IMPRESSION: There are 2 small echogenic foci in the gallbladder which do not shadow, and are likely small polyps. There is no gallbladder wall thickening or biliary dilatation. Dictated by: Dictated on workstation # [id number]
== END ==
LOC: RAD 08:51
PROVIDERS: ATTEND Surgery
DX: R10.13 Epigastric pain (principal); R93.3 Abnormal findings on diagnostic imaging of other parts of digestive tract
CPT/HCPCS: 76705

== ENCOUNTER 2017-05-04 08:43 | Outpatient (CLI) | payer MEDICAID ==
[~2017-05-04] VITALS: Ht 188 cm; Wt 98.0 kg
[2017-05-04] MEDS ORDERED: PANT40TA3 PO (10:16)
[2017-05-04] MEDS ORDERED: SUCR1TAB PO (10:16)
[2017-05-04] MEDS ORDERED: LORA10TA7 PO (10:16)
[2017-05-04] MEDS ORDERED: CLON1TAB3 PO (10:16)
[2017-05-04] MEDS ORDERED: HYOS-19 SL (10:16)
[2017-05-04] MEDS ORDERED: FLUT16SP22 NSEACH (10:16)
== END 2017-05-04 10:31 ==
LOC: PREOP 08:43
PROVIDERS: ATTEND Surgery
DX: Z01.818 Encounter for other preprocedural examination (principal); K82.4 Cholesterolosis of gallbladder

== ENCOUNTER 2017-05-06 07:15 | Day surgery (SDC) | payer MEDICAID ==
[~2017-05-06] VITALS: Ht 188 cm; Wt 98.0 kg
[~2017-05-06 07:15] MED LIST changes: +CLON1TAB3 PO; +FLUT16SP22 NSEACH; +HYOS-19 SL; +LORA10TA7 PO; +PANT40TA3 PO; +SUCR1TAB PO
[2017-05-06 07:42] VITALS: BP 143/101
[2017-05-06] MEDS ORDERED: CLINDAMYCIN 600 MG/50 ML IVPB 50 ML IV ONE (07:45)
[2017-05-06 07:54] LABS: AMPHETAMINE SCREEN, URINE NEGATIVE (NEGATIVE); BARBITURATE SCREEN URINE NEGATIVE (NEGATIVE); BENZODIAZEPINES SCREEN URINE NEGATIVE (NEGATIVE); CANNABINOID SCREEN, URINE POSITIVE (NEGATIVE); COCAINE SCREEN URINE NEGATIVE (NEGATIVE); METHADONE STAT NEGATIVE (NEGATIVE); METHAMPHETAMINE SCREEN URINE S NEGATIVE (NEGATIVE); OPIATE SCREEN URINE NEGATIVE (NEGATIVE); OXYCODONE STAT NEGATIVE (NEGATIVE); PROPOXYPHENE STAT NEGATIVE (NEGATIVE); TRICYCLIC ANTIDEPRESSANTS SCRE NEGATIVE (NEGATIVE)
[2017-05-06] MEDS ORDERED: BUPIVACAINE 0.5% 30 ML (SENSORCAINE) VIAL ONE (07:54)
[2017-05-06] MEDS ORDERED: LIDOCAINE 1% INJ 20 ML (XYLOCAINE) VIAL ONE (07:54)
[2017-05-06] MEDS: LACTATED RINGERS 1,000 ML IV PRN ×2 (08:20→09:48)
--- NOTE | 2017-05-06 08:40 | Progress Note-Pre Operative ---
Pre-Operative Progress Note H&P Reviewed The H&P was reviewed, patient examined and no changes noted. Date Seen by Provider: May 06, 2017 Time Seen by Provider: 08:39 Date H&P Reviewed: May 06, 2017 Time H&P Reviewed: 08:39 Pre-Operative Diagnosis: epigastric abdominal pain, gallbladder polyp SUMIT KEENE DO May 06, 2017 08:40
[2017-05-06] MEDS ORDERED: ONDANSETRON 4 MG/2 ML (SDV) Z0FRAN ONE (08:56)
[2017-05-06] MEDS ORDERED: proPOfol 200 MG/20 ML (DIPRIVAN) VIAL IV ONE (08:56)
[2017-05-06] MEDS ORDERED: ROCURONIUM 10 MG/ML 5 ML SYRINGE IV ONE (08:56)
[2017-05-06] MEDS ORDERED: fentaNYL INJECTION 100 MCG/2 ML AMP ONE ×2 (08:56→09:57)
[2017-05-06] MEDS ORDERED: MIDAZOLAM 2 MG/2 ML (VERSED) VIAL ONE (08:56)
[2017-05-06] MEDS ORDERED: LIDOCAINE PF 2% 5 ML (XYLOCAINE) VIAL ONE (08:56)
[2017-05-06] MEDS ORDERED: LACTATED RINGERS 1,000 ML IV ONE (08:56)
[2017-05-06] MEDS ORDERED: DEXAMETHASONE 10 MG/ML (DECADRON) 1 ML VIAL ONE (09:24)
[2017-05-06] MEDS ORDERED: SEVOFLURANE (ULTANE) 15 ML INHAL SOLN ONE ×5 (09:24→10:05)
[2017-05-06] MEDS ORDERED: NEOSTIGMINE 1 MG/ML 5 ML SYRINGE ONE (09:49)
[2017-05-06] MEDS ORDERED: GLYCOPYRROLATE 0.2 MG/ML (ROBINUL) 2 ML VIAL ONE (09:49)
--- NOTE | 2017-05-06 09:55 | Progress Note-Post Operative ---
Post-Operative Progess Note Surgeon (s)/Undercoat Sprayer (s) Surgeon SUMIT KEENE DO Undercoat Sprayer: Dr. Sheehan Pre-Operative Diagnosis epigastric abdominal pain, gallbladder polyp Post-Operative Diagnosis same Procedure & Operative Findings Date of Procedure 05/06/17 Procedure Performed/Findings Lap lani c ioc Anesthesia Type gen Estimated Blood Loss Estimated blood loss (mL): min Specimens/Packing Specimens Removed gallbladder SUMIT KEENE DO May 06, 2017 09:55
[2017-05-06] MEDS ORDERED: ACHD5005 PO (09:57)
[2017-05-06] MEDS ORDERED: DOCU-143 PO (09:57)
--- NOTE | 2017-05-06 09:58 | Discharge Inst-Simple/Standard ---
Discharge Inst-Standard Discharge Medications New, Converted or Re-Newed RX: RX on Chart Patient Instructions/Follow Up Plan of Care/Instructions/FU: 2 weeks Papito Activity as Tolerated: No Discharge Diet: Regular Diet Other Inst to Patient Follow up Appt: Make appointment for 2 weeks. Instructions: No lifting greater than 10 pounds. No strenuous activity. May shower in 24 hours, no tub bath or soaking. Use incentive spirometer at home as directed. No Smoking Skin/Wound Care: You have special glue over incisions it will fall off on its own. Symptoms to Report: Appetite Changes, Extremity Discoloration, Numbness/Tingling, Swelling Increased , Bleeding Excessive, Eyesight Changes, Pain Increased, Urine Color Change, Constipation(Persistent), Fever over 101 degree F, Pain/Pressure in chest, Urinating Difficulty, Cough Up/Vomit Blood, Heart Beat Irreg/Pounding, Pain/ Pressure in jaw, Vaginal Bleeding Increase, Cramps in feet or legs, Lightheadedness, Pain/Pressure in shoulder, Diarrhea(Persistent), Memory Changes Suddenly, Questions/Concerns, Weight gain consecutive days, Dizziness/ Fainting, Nausea/Vomiting, Shortness of Breath, Weight gain over 2 pounds. If eyes or skin turn yellow notify physician. If questions or concerns contact your physician Or seek help at emergency department. SUMIT KEENE DO May 06, 2017 09:58
[2017-05-06] MEDS ORDERED: HYDROcodone/APAP 5 MG/325 MG (LORTAB) TAB PO PRN (10:00)
[2017-05-06] MEDS ORDERED: MEPERIDINE (DEMEROL) INJ 50 MG/ML IVP PRN (10:15)
[2017-05-06] MEDS ORDERED: ONDANSETRON 4 MG/2 ML (SDV) Z0FRAN IVP PRN (10:15)
[2017-05-06] MEDS: fentaNYL INJECTION 100 MCG/2 ML AMP IVP PRN ×2 (10:30→10:35)
--- NOTE | 2017-05-06 11:04 | Diagnostic Imaging Report ---
INDICATION: Cholecystectomy. FINDINGS: Fluoroscopy was provided in the OR during performance of an intraoperative cholangiogram. 7 seconds of fluoroscopy was utilized. Images demonstrate contrast being injected via the cystic duct remnant. There is opacification of the intrahepatic and extrahepatic bile ducts. No filling defects are seen to suggest a retained stone. There is free flow of contrast into the duodenum. IMPRESSION: Fluoroscopy for intraoperative cholangiogram. Dictated by: Dictated on workstation # [id number]
[2017-05-06 11:05] VITALS: BP 149/102
[2017-05-06 11:35] VITALS: BP 146/102
[2017-05-06 11:40] VITALS: BP 146/102
--- NOTE | 2017-05-06 12:59 | Anesthesia-General Post-Op ---
General Patient Condition Mental Status/LOC: Same as Preop Cardiovascular: Satisfactory Nausea/Vomiting: Absent Respiratory: Satisfactory Pain: Controlled Complications: Absent Post Op Complications Complications None Follow Up Care/Instructions Patient Instructions None needed. Anesthesia/Patient Condition Patient Condition Patient is doing well, no complaints, stable vital signs, no apparent adverse anesthesia problems. No complications reported per nursing. D/C home per [facility] Criteria: Yes MAGDIEL GOINS CRNA May 06, 2017 12:59
--- NOTE | 2017-05-06 16:33 | OPERATIVE REPORT ---
DATE OF SERVICE: 05/06/2017 PREOPERATIVE DIAGNOSES: Epigastric abdominal pain, gallbladder polyp. POSTOPERATIVE DIAGNOSES: Epigastric abdominal pain, gallbladder polyp. PROCEDURE PERFORMED: Laparoscopic cholecystectomy with intraoperative cholangiogram. SURGEON: Sumit Cobos DO. ROUTE CLERK: Dr. Sheehan, assisted in retraction, dissection and closure. ANESTHESIA: General. ESTIMATED BLOOD LOSS: Minimal. COMPLICATIONS: None. INDICATIONS: The patient is a 32-year-old male, who has been having epigastric abdominal pain. A gallbladder ultrasound demonstrating gallbladder polyps. He understands risks and benefits of procedure and wished to proceed with procedure. Consent was signed and on chart. DESCRIPTION OF PROCEDURE: The patient was taken to the operating suite. He was prepped and draped in sterile fashion. Surgical pause was performed. An incision was made just above the umbilicus. Irvin technique was used to enter the abdomen. A balloon trocar was inserted into the incision and a pneumoperitoneum was achieved. Under direct visualization of the laparoscope, a 5 mm trocar was placed in the subxiphoid region and two 5 mm trocars placed in the right upper quadrant. Gallbladder was grasped, elevated. There were multiple adhesions of omentum caked onto the gallbladder, which were then taken down with both blunt and cautery dissection. The cystic duct and cystic artery were then dissected out. Clips were placed on the proximal and distal portion of the cystic artery. A clip was placed on the distal portion of the cystic duct. The is cystic duct was then partially transected. Arrow catheter was inserted and a cholangiogram was performed. There were no filling defects. Contrast made its way into the duodenum. The catheter was removed. Clips were placed on the proximal portion of the cystic duct and the duct and artery were then completely transected. Hook cautery was used to dissect the gallbladder from the gallbladder fossa achieving hemostasis. Gallbladder was placed in an Endobag and removed through the 12 mm trocar site. Copious amounts of irrigation used to irrigate the abdomen and suction. The air was then desufflated, the trocars were removed. The fascial defect at the umbilical incision was closed using 0 Vicryl in a [id number] fashion. The skin was then closed using 4-0 Monocryl of all the incisions. The abdomen was then washed and dried and SwiftSet was placed over the incisions. The patient tolerated procedure well without any complications and taken to recovery room in stable condition. Garry ID: [id number] DocumentID: [id number] Dictated Date: 05/06/2017 10:01:26 [employer] Scientist Date: 05/06/2017 16:33:04 Dictated By: SUMIT COBOS DO
== END 2017-05-06 11:41 | disposition home or self-care (01) ==
LOC: SDC 07:15
PROVIDERS: ATTEND Surgery
DX: K81.1 Chronic cholecystitis (principal); I10 Essential (primary) hypertension; F17.210 Nicotine dependence, cigarettes, uncomplicated; F12.90 Cannabis use, unspecified, uncomplicated; Z79.899 Other long term (current) drug therapy
CPT/HCPCS: 80306; 87081; 88304; 94664

== ENCOUNTER → 2017-07-13 | Outpatient (CLI) | payer MEDICAID ==
[~2017-07-13] MED LIST changes: +ACHD5005 PO; +DOCU-143 PO
[2017-07-13 15:54] LABS: AMPHETAMINE SCREEN, URINE NEGATIVE (NEGATIVE); BARBITURATE SCREEN URINE NEGATIVE (NEGATIVE); BENZODIAZEPINES SCREEN URINE NEGATIVE (NEGATIVE); CANNABINOID SCREEN, URINE POSITIVE (NEGATIVE); COCAINE SCREEN URINE NEGATIVE (NEGATIVE); METHADONE STAT NEGATIVE (NEGATIVE); METHAMPHETAMINE SCREEN URINE S NEGATIVE (NEGATIVE); OPIATE SCREEN URINE NEGATIVE (NEGATIVE); OXYCODONE STAT NEGATIVE (NEGATIVE); PROPOXYPHENE STAT NEGATIVE (NEGATIVE); TRICYCLIC ANTIDEPRESSANTS SCRE NEGATIVE (NEGATIVE)
== END ==
LOC: LAB 15:29
PROVIDERS: ATTEND Family Medicine
DX: F12.90 Cannabis use, unspecified, uncomplicated (principal)
CPT/HCPCS: 80306

== ENCOUNTER 2017-12-28 01:38 | Emergency (ER) | payer MEDICAID ==
[~2017-12-28] VITALS: Ht 188 cm; Wt 98.0 kg
[~2017-12-28 01:38] MED LIST changes: +CLON1TAB13 PO; -CLON1TAB3 PO
--- OUTSIDE RECORDS SUMMARY | 2017-12-28 01:44 | XMS REPORT ---
Author Author REBA MCGHEE Organization [facility] Address [address] [place] [address] Care Team Providers Care Offset Press Assistant Name Role Phone REBA MCGHEE Unavailable PROBLEMS Type Condition ICD9-CM Code [id number] Code Onset Dates Condition Status SNOMED Code Problem Irritable bowel syndrome with constipation K58.1 Active 003850145 Problem Anxiety F41.9 Active 35226931 Problem Other chronic pain G89.29 Active 28430683 Problem Other chronic gastritis without hemorrhage K29.50 Active 6468795 Problem Allergic rhinitis, unspecified allergic rhinitis trigger, unspecified rhinitis seasonality J30.9 Active 79389840 ALLERGIES Substance Reaction Event Type Date Status Penicillin V Potassium Unknown Drug Allergy Sep, Active ENCOUNTERS Encounter Location Date Diagnosis [place] [id number] [place] [address] 71587- 3076 Nov, [place] [id number] [place] [address] 97610- 1167 05 Oct, 2017 Anxiety F41.9 ; Other chronic pain G89.29 ; Pain in left knee M25.562 ; Pain in right knee M25.561 and Irritable bowel syndrome with constipation K58.1 [facility] [id number] [place] [address] 88042- 7233 Sep, Hemangioma D18.00 ; Anxiety F41.9 ; Other chronic pain G89.29 ; Pain in left knee M25.562 and Pain in right knee M25.561 [facility] [id number] [place] [address] 26002- 6677 May, [facility] [id number] [place] [address] 99093- 9051 Apr, [facility] [address] 13017- 9794 Apr, Allergic rhinitis, unspecified allergic rhinitis trigger, unspecified rhinitis seasonality J30.9 [facility] [address] 78351- 2963 Apr, Allergic rhinitis, unspecified allergic rhinitis trigger, unspecified rhinitis seasonality J30.9 [facility] [address] 73953- 4756 15 Apr, 2017 Other chronic gastritis without hemorrhage K29.50 [facility] [address] 91746- 6330 Apr, [place] [address] 519383- 2464 Apr, Allergic rhinitis, unspecified allergic rhinitis trigger, unspecified rhinitis seasonality J30.9 [place] [address] 67375- 3913 Apr, [facility] [address] 00749- 4567 Mar, Allergic rhinitis, unspecified allergic rhinitis trigger, unspecified rhinitis seasonality J30.9 [place] [address] 25476- 5264 Mar, [place] [id number] [place] [address] 57213- 1185 Jan, [place] [address] 42965- 9292 Jan, [facility] [address] 54612- 8952 Dec, Allergic rhinitis, unspecified allergic rhinitis trigger, unspecified rhinitis seasonality J30.9 ; Other chronic pain G89.29 ; Pain in left knee M25.562 ; Pain in right knee M25.561 and Low back pain M54.5 [place] [address] 78870- 2869 Dec, [place] [address] [address] 1078 Nov, [facility] [id number] [place] [address] 678291- 8846 Nov, [facility] [id number] [place] [address] 61565- 9715 Nov, [facility] [id number] [place] [address] 058506- 1445 14 Oct, 2016 [facility] [id number] [place] [address] 37265- 4456 Sep, [facility] [id number] [place] [address] 11937- 6846 Aug, [facility] [id number] [place] [address] 89830 -9668 Aug, Laceration without foreign body, left lower leg, initial encounter S81.812A [facility] [id number] [address] 0638 Jul, [facility] [id number] [place] [address] 67025- 3028 June, [facility] [id number] [place] [address] 78296 -4702 June, Exposure to strep throat Z20.818 [facility] [address] [place] [address] 29313- 6207 May, [facility] [address] [place] [address] 21073- 2556 Apr, [facility] [id number] [place] [address] 460812- 5947 Apr, Diverticulitis of intestine without perforation or abscess without bleeding, unspecified part of intestinal tract K57.92 and Other chronic pain G89.29 [facility] [address] [place] [address] 24416- 8178 Apr, Allergic rhinitis, unspecified allergic rhinitis trigger, unspecified rhinitis seasonality J30.9 [facility] [id number] [place] [address] 52385- 9949 03 Mar, 2016 Allergic rhinitis, unspecified allergic rhinitis trigger, unspecified rhinitis seasonality J30.9 [facility] [id number] [place] [address] 78248- 0561 Jan, Low back pain M54.5 and Allergic rhinitis, unspecified allergic rhinitis trigger, unspecified rhinitis seasonality J30.9 [facility] [id number] [place] [address] 83828- 4029 Dec, Allergic rhinitis, unspecified allergic rhinitis trigger, unspecified rhinitis seasonality J30.9 ; Encounter for immunization Z23 ; Low back pain M54.5 ; Other chronic pain G89.29 ; Pain in left knee M25.562 and Pain in right knee M25.561 [facility] [address] 88811- 8084 14 Nov, 2015 [facility] [id number] [place] [address] 70446- 3995 14 Nov, 2015 [facility] [address] 12392- 6863 14 Nov, 2015 [facility] [id number] [place] [address] 10086- 3541 15 Oct, 2015 [facility] [id number] [place] [address] 84527- 2544 14 Oct, 2015 [facility] [id number] [place] [address] 49139- 6302 14 Oct, 2015 [facility] [address] 17681- 1670 18 Sep, 2015 [facility] [id number] [place] [address] 14748- 8603 Sep, [facility] [id number] [place] [address] 66737- 1655 Sep, Adjustment disorder with anxiety F43.22 and Impulse control disorder F63.9 [facility] [address] [place] [address] 24754- 3196 Aug, [facility] [id number] [place] [address] 88005- 5170 Jul, [facility] [id number] [place] [address] 38572- 5736 Jul, [facility] [id number] [place] [address] 73926- 3931 Jul, [facility] [id number] [place] [address] 70295- 3849 June, [facility] [id number] [place] [address] 87567- 8557 May, [facility] [id number] [place] [address] 26442- 6952 Apr, [facility] [id number] [place] [address] 21426- 4951 Apr, [facility] [id number] [place] [address] 31995- 0230 Apr, Irritable bowel syndrome with diarrhea K58.0 [facility] [address] [place] [address] 19488 -8996 Apr, Colitis K52.9 [facility] [address] [address]- 1521 Mar, [facility] [address], [place] [address]- 2094 Jan, [facility] [id number] [place] [address] 00254- 8024 Jan, [facility] [address] [address]- 0190 Dec, [facility] [id number] [address]- 5743 Nov, [facility] [address] [facility] [id number] [address]- 3353 Oct, [facility] [address] [facility] [id number]- 7996 Sep, [facility] [address] 6678 Aug, Ankle sprain 845.00 [facility] [address] [facility] [id number], [place] [address]- 2928 Aug, Diverticulitis large intestine 562.11 [facility] [address], [place] [address]- 6266 Aug, [facility] [address] [address]- 8992 Jul, Irritable bowel syndrome 564.1 [facility] [address] [address]- 1591 Jul, Ankle sprain 845.00 [facility] [address], [place] [address]- 9993 Jul, [facility] [address] [address]- 6006 June, [facility] [id number] [address]- 1676 May, [facility] [id number] [address]- 6018 May, [facility] [address] 9097 Apr, [facility] [address] 3407 Apr, [facility] [id number] [address]- 0736 Apr, [facility] [place] [facility] [address] [id number] [place] [address]- 6450 Apr, [facility] [place] [facility] [address] [id number] [place] [address]- 4594 Apr, 2014 [facility] [place] [facility] [address] [id number] [place] [address]- 5591 Apr, 2014 [facility] [place] [facility] [address] [id number] [place] [address]- 4974 Apr, 2014 [facility] [place] [facility] [address] [id number] [place] [address]- 6149 Apr, 2014 [facility] [place] [facility] [address] [id number] [place] [address]- 3760 Apr, 2014 [facility] [place] [facility] [address] [facility] [id number] [place] [address]- 4339 Nov, [facility] [place] [facility] [address] [id number] [place] [address]- 4524 Nov, [facility] [place] [facility] [address] [id number] [place] [address]- 3119 Nov, [facility] [place] [facility] [address] [facility] [id number] [place] [address]- 5435 Nov, [facility] [place] [facility] [address] [facility] [id number], [place] [address]- 0115 Nov, [facility] [place] [facility] [address] [id number], [place] [address]- 8096 Sep, [facility] [place] [facility] [address] [id number] [place] [address]- 5089 Sep, [facility] [place] [facility] [address] [id number] [place] [address]- 6797 Sep, [facility] [place] [facility] [address] [id number], [place] [address]- 3800 Sep, [facility] [place] [facility] [address] [id number], [place] [address]- 7495 Sep, [facility] [place] [facility] [address] [id number] [place] [address]- 7126 Aug, [facility] [place] [facility] [address] [id number] [place] [address]- 6348 Aug, [facility] [place] [facility] [address] [id number] [place] [address]- 4027 Aug, [facility] [place] [facility] [address] [id number] [place] [address]- 0931 Aug, [facility] [place] [facility] [address] [id number] [place] [address]- 4416 Aug, [facility] [place] [facility] [address] [id number] [place] [address]- 6306 Aug, [facility] [place] [facility] [address] [id number] [place] [address]- 2090 Aug, [facility] [place] [facility] [address] [id number] [place] [address]- 3221 Aug, [facility] [place] [facility] [address] [id number] [place] [address]- 5852 Aug, [facility] [place] [facility] [address] [id number] [place] [address]- 9946 Aug, [facility] [place] [facility] [address] [id number] [place] [address]- 2198 Aug, [facility] [place] [facility] [address] [id number] [place] [address]- 4527 Apr, [facility] [place] [facility] [address] [id number] [place] [address]- 9874 Apr, [facility] [place] [facility] [address] [id number] [place] [address]- 8690 Apr, [facility] [place] [facility] [address] [id number] [place] [address]- 8059 Apr, [facility] [place] [facility] [address] [id number] [place] [address]- 7039 Oct, [facility] [place] [facility] [address] [id number] [place] [address]- 0124 Sep, [facility] [place] [facility] [address] [id number] [place] [address]- 6118 Sep, [facility] [place] [facility] [address] [id number] [place] [address]- 6782 Aug, [facility] [place] [facility] [address] [id number] [place] [address]- 9775 May, [facility] [place] [facility] [address] [id number] [place] [address]- 5894 Mar, [facility] [address] [id number] [place] [address]- 4411 Jan, [facility] [place] [facility] [address] [id number] [place] [address]- 7603 Jan, [facility] [place] [facility] [address] [id number] [place] [address]- 9720 Jan, [facility] [place] [facility] [address] [id number] [place] [address]- 3420 Jan, [facility] [place] [facility] [address] [id number] [place] [address]- 7775 Jan, [facility] [place] [facility] [address] [id number] [place] [address]- 1897 Dec, [facility] [place] [facility] [address] [id number] [place] [address]- 9469 Dec, [facility] [place] [facility] [address] [id number] [place] [address]- 3314 22 Oct, 2011 [facility] [place] [facility] [address] [id number] [place] [address]- 5072 12 Oct, 2011 [facility] [place] [facility] [address] [id number] [address]- 9786 Sep, [facility] [address] [facility] [id number], [place] [address]- 0916 Mar, [facility] [address], [place] [address]- 2246 Mar, [facility] [address], [place] [address]- 0186 Jan, [facility] [address], [place] [address]- 5936 Jan, [facility] [address], [place] [address]- 9622 May, [facility] [address], [place] [address]- 0376 Mar, [facility] [id number] [address]- 1376 Sep, IMMUNIZATIONS No Known Immunizations SOCIAL HISTORY Never Assessed REASON FOR VISIT Skin c/o, has spot on right upper arm. Reports has been there for a while, breaks out and turns black. CBrumbackRN PLAN OF CARE VITAL SIGNS Height 72 in 2017-10-13 Weight 218.0 lbs 2017-10-13 Temperature 97.6 degrees Fahrenheit 2017-10-13 Heart Rate 80 bpm 2017-10-13 Respiratory Rate 18 2017-10-13 BMI 29.56 kg/m2 2017-10-13 Blood pressure systolic 136 mmHg 2017-10-13 Blood pressure diastolic 108 mmHg 2017-10-13 MEDICATIONS Medication Instructions Dosage Frequency Start Date End Date Duration Status HydrOXYzine Pamoate 25 MG Orally every 8 hrs 1 capsule as needed 8h 15 Sep 30 day(s) Active Loratadine 10 MG Orally Once a day 1 tablet 24h Active Meloxicam 7.5 MG Orally 2 times a day 1 tablet 12h Sep, 13 Dec, 2017 30 day(s) Active Flonase 50 MCG/ACT Nasally Once a day 1 spray in each nostril 24h 17 Dec, 2016 30 day(s) Active Protonix 40 mg Orally Once a day 1 tablet 24h 30 Active Sucralfate 1 GM TAKE ONE TABLET BY MOUTH FOUR TIMES DAILY BEFORE MEALS AND AT BEDTIME 30 Active RESULTS No Results PROCEDURES No Known procedures INSTRUCTIONS MEDICATIONS ADMINISTERED No Known Medications MEDICAL (GENERAL) HISTORY Type Description Date Medical [...] History dental surg-tooth extraction Surgical History colonoscopy Surgical History cholecystectomy 05/2017 Hospitalization History severe diarrhea 2006
--- OUTSIDE RECORDS SUMMARY | 2017-12-28 01:44 | XMS REPORT ---
Author Author REBA MCGHEE Organization [facility] Address [address] [place] [address] Care Team Providers Care Sales Person Name Role Phone REBA MCGHEE Unavailable PROBLEMS Type Condition ICD9-CM Code CUI89-VT Code Onset Dates Condition Status SNOMED Code Problem Irritable bowel syndrome with constipation K58.1 Active 133651875 Problem Anxiety F41.9 Active 88116050 Problem Other chronic pain G89.29 Active 04857555 Problem Other chronic gastritis without hemorrhage K29.50 Active 8097075 Problem Allergic rhinitis, unspecified allergic rhinitis trigger, unspecified rhinitis seasonality J30.9 Active 82463863 ALLERGIES Substance Reaction Event Type Date Status Penicillin V Potassium Unknown Drug Allergy Oct, Active ENCOUNTERS Encounter Location Date Diagnosis [place] [id number] [place] [address] 24788- 9709 Nov, [place] [id number] [place] [address] 47969- 4881 Oct, Anxiety F41.9 ; Other chronic pain G89.29 ; Pain in left knee M25.562 ; Pain in right knee M25.561 and Irritable bowel syndrome with constipation K58.1 [facility] [id number] [place] [address] 39870- 4742 Sep, Hemangioma D18.00 ; Anxiety F41.9 ; Other chronic pain G89.29 ; Pain in left knee M25.562 and Pain in right knee M25.561 [facility] [id number] [place] [address] 42822- 2604 May, [facility] [id number] [place] [address] 71676- 7222 Apr, [facility] [address] 11848- 6108 Apr, Allergic rhinitis, unspecified allergic rhinitis trigger, unspecified rhinitis seasonality J30.9 [facility] [address] 21579- 0445 Apr, Allergic rhinitis, unspecified allergic rhinitis trigger, unspecified rhinitis seasonality J30.9 [facility] [address] 34149- 0382 15 Apr, 2017 Other chronic gastritis without hemorrhage K29.50 [facility] [address] 53188- 4536 Apr, [place] [address] 726615- 3475 Apr, Allergic rhinitis, unspecified allergic rhinitis trigger, unspecified rhinitis seasonality J30.9 [place] [address] 88472- 3701 Apr, [facility] [address] 89600- 1136 Mar, Allergic rhinitis, unspecified allergic rhinitis trigger, unspecified rhinitis seasonality J30.9 [place] [address] 01113- 9032 Mar, [place] [id number] [place] [address] 09485- 1056 Jan, [place] [address] 36790- 7533 Jan, [facility] [address] 55954- 0359 Dec, Allergic rhinitis, unspecified allergic rhinitis trigger, unspecified rhinitis seasonality J30.9 ; Other chronic pain G89.29 ; Pain in left knee M25.562 ; Pain in right knee M25.561 and Low back pain M54.5 [place] [address] 13804- 8621 Dec, [place] [address] [address] 7281 Nov, [facility] [id number] [place] [address] 565608- 1018 Nov, [facility] [id number] [place] [address] 02195- 9159 Nov, [facility] [id number] [place] [address] 492964- 9216 14 Oct, 2016 [facility] [id number] [place] [address] 58079- 3754 Sep, [facility] [id number] [place] [address] 98699- 2060 Aug, [facility] [id number] [place] [address] 21866 -6139 Aug, Laceration without foreign body, left lower leg, initial encounter S81.812A [facility] [id number] [address]- 4172 Jul, [facility] [id number] [place] [address] 94064- 3432 June, [facility] [id number] [place] [address] 12880 -7532 June, Exposure to strep throat Z20.818 [facility] [id number] [place] [address] 41530- 4730 May, [facility] [id number] [place] [address] 13181- 3526 Apr, [facility] [id number] [place] [address] 658936- 4255 Apr, Diverticulitis of intestine without perforation or abscess without bleeding, unspecified part of intestinal tract K57.92 and Other chronic pain G89.29 [facility] [id number] [place] [address] 27480- 7424 Apr, Allergic rhinitis, unspecified allergic rhinitis trigger, unspecified rhinitis seasonality J30.9 [facility] [id number] [place] [address] 43601- 1505 03 Mar, 2016 Allergic rhinitis, unspecified allergic rhinitis trigger, unspecified rhinitis seasonality J30.9 [facility] [id number] [place] [address] 04609- 2287 Jan, Low back pain M54.5 and Allergic rhinitis, unspecified allergic rhinitis trigger, unspecified rhinitis seasonality J30.9 [facility] [id number] [place] [address] 79943- 3511 Dec, Allergic rhinitis, unspecified allergic rhinitis trigger, unspecified rhinitis seasonality J30.9 ; Encounter for immunization Z23 ; Low back pain M54.5 ; Other chronic pain G89.29 ; Pain in left knee M25.562 and Pain in right knee M25.561 [facility] [address] 50658- 3593 14 Nov, 2015 [facility] [id number] [place] [address] 68017- 4199 14 Nov, 2015 [facility] [address] 96789- 7793 14 Nov, 2015 [facility] [id number] [place] [address] 04354- 5433 15 Oct, 2015 [facility] [id number] [place] [address] 68758- 0770 14 Oct, 2015 [facility] [id number] [place] [address] 54215- 1490 14 Oct, 2015 [facility] [address] 00083- 9742 18 Sep, 2015 [facility] [id number] [place] [address] 30363- 1433 Sep, [facility] [id number] [place] [address] 49613- 6624 Sep, Adjustment disorder with anxiety F43.22 and Impulse control disorder F63.9 [facility] [id number] [place] [address] 61954- 5255 Aug, [facility] [id number] [place] [address] 67227- 9859 Jul, [facility] [id number] [place] [address] 51453- 7153 Jul, [facility] [id number] [place] [address] 15229- 0382 Jul, [facility] [id number] [place] [address] 30085- 8300 June, [facility] [id number] [place] [address] 90165- 8859 May, [facility] [id number] [place] [address] 08445- 3758 Apr, [facility] [id number] [place] [address] 18932- 2725 Apr, [facility] [id number] [place] [address] 86260- 9078 Apr, Irritable bowel syndrome with diarrhea K58.0 [facility] [id number] [place] [address] 71272 -3922 Apr, Colitis K52.9 [facility] [address] [address]- 4696 Mar, [facility] [address] [address]- 6554 Jan, [facility] [id number] [place] [address] 03623- 4116 Jan, [facility] [address] [address]- 1899 Dec, [facility] [id number] [address]- 7105 Nov, [facility] [address] [facility] [id number], [place] [address]- 0132 Oct, [facility] [address] [facility] [id number] 3616 Sep, [facility] [address] 3610 Aug, Ankle sprain 845.00 [facility] [address] [facility] [id number], [place] [address]- 6693 Aug, Diverticulitis large intestine 562.11 [facility] [address] [address]- 3736 Aug, [facility] [address] [address]- 4002 Jul, Irritable bowel syndrome 564.1 [facility] [address] [address]- 7729 Jul, Ankle sprain 845.00 [facility] [address] [address]- 7387 Jul, [facility] [address] [address]- 2215 June, [facility] [id number] [address]- 3240 May, [facility] [id number] [address]- 5189 May, [facility] [address] 1585 Apr, [facility] [address] 0075 Apr, [facility] [id number] [address]- 3162 Apr, [facility] [place] [facility] [address] [id number] [place] [address]- 6900 Apr, [facility] [place] [facility] [address] [id number] [place] [address]- 4003 Apr, 2014 [facility] [place] [facility] [address] [id number] [place] [address]- 9033 Apr, 2014 [facility] [place] [facility] [address] [id number] [place] [address]- 2643 Apr, 2014 [facility] [place] [facility] [address] [id number] [place] [address]- 1338 Apr, 2014 [facility] [place] [facility] [address] [id number] [place] [address]- 6467 Apr, 2014 [facility] [place] [facility] [address] [facility] [id number] [place] [address]- 8707 Nov, [facility] [place] [facility] [address] [id number] [place] [address]- 9118 Nov, [facility] [place] [facility] [address] [id number] [place] [address]- 3451 Nov, [facility] [place] [facility] [address] [facility] [id number] [place] [address]- 9707 Nov, [facility] [place] [facility] [address] [facility] [id number], [place] [address]- 1307 Nov, [facility] [place] [facility] [address] [id number], [place] [address]- 6809 Sep, [facility] [place] [facility] [address] [id number] [place] [address]- 0046 Sep, [facility] [place] [facility] [address] [id number] [place] [address]- 1258 Sep, [facility] [place] [facility] [address] [id number], [place] [address]- 3920 Sep, [facility] [place] [facility] [address] [id number], [place] [address]- 8368 Sep, [facility] [place] [facility] [address] [id number] [place] [address]- 0235 Aug, [facility] [place] [facility] [address] [id number] [place] [address]- 8497 Aug, [facility] [place] [facility] [address] [id number] [place] [address]- 8788 Aug, [facility] [place] [facility] [address] [id number] [place] [address]- 6990 Aug, [facility] [place] [facility] [address] [id number] [place] [address]- 2416 Aug, [facility] [place] [facility] [address] [id number] [place] [address]- 8798 Aug, [facility] [place] [facility] [address] [id number] [place] [address]- 1344 Aug, [facility] [place] [facility] [address] [id number] [place] [address]- 1148 Aug, [facility] [place] [facility] [address] [id number] [place] [address]- 2445 Aug, [facility] [place] [facility] [address] [id number] [place] [address]- 5616 Aug, [facility] [place] [facility] [address] [id number] [place] [address]- 8675 Aug, [facility] [place] [facility] [address] [id number] [place] [address]- 9030 Apr, [facility] [place] [facility] [address] [id number] [place] [address]- 6681 Apr, [facility] [place] [facility] [address] [id number] [place] [address]- 1422 Apr, [facility] [place] [facility] [address] [id number] [place] [address]- 5658 Apr, [facility] [place] [facility] [address] [id number] [place] [address]- 7379 Oct, [facility] [place] [facility] [address] [id number] [place] [address]- 6659 Sep, [facility] [place] [facility] [address] [id number] [place] [address]- 3798 Sep, [facility] [place] [facility] [address] [id number] [place] [address]- 5953 Aug, [facility] [place] [facility] [address] [id number] [place] [address]- 1738 May, [facility] [place] [facility] [address] [id number] [place] [address]- 7406 Mar, [facility] [address] [id number] [place] [address]- 5455 Jan, [facility] [place] [facility] [address] [id number] [place] [address]- 4079 Jan, [facility] [place] [facility] [address] [id number] [place] [address]- 4917 Jan, [facility] [place] [facility] [address] [id number] [place] [address]- 9890 Jan, [facility] [place] [facility] [address] [id number] [place] [address]- 9671 Jan, [facility] [place] [facility] [address] [id number] [place] [address]- 7020 Dec, [facility] [place] [facility] [address] [id number] [place] [address]- 7102 Dec, [facility] [place] [facility] [address] [id number] [place] [address]- 1611 22 Oct, 2011 [facility] [place] [facility] [address] [id number] [place] [address]- 2064 12 Oct, 2011 [facility] [place] [facility] [address] [id number], [place] [address]- 3476 Sep, [facility] [address] [facility] [id number], [place] [address]- 2816 Mar, [facility] [address] [facility] [id number], [place] [address]- 0256 Mar, [facility] [id number], [place] [address]- 8946 Jan, [facility] [address] [facility] [id number], [place] [address] 2546 Jan, [facility] [address] [facility] [id number], [place] [address]- 4696 May, [facility] [id number], [place] [address]- 6306 Mar, [facility] [address] [facility] [id number], [place] [address]- 6336 Sep, IMMUNIZATIONS No Known Immunizations SOCIAL HISTORY Never Assessed REASON FOR VISIT cryo, -Tray STEELE , PT mentions he has been very frustated lately and feels like he is going to snap. PT feels he may need to talk to someone becuase he wants to keep his family -Kitty STEELE PLAN OF CARE VITAL SIGNS Height 72 in 2017-11-03 Weight 220.2 lbs 2017-11-03 Temperature 97.7 degrees Fahrenheit 2017-11-03 Heart Rate 61 bpm 2017-11-03 Respiratory Rate 18 2017-11-03 Oximetry 97 % 2017-11-03 BMI 29.86 kg/m2 2017-11-03 Blood pressure systolic 128 mmHg 2017-11-03 Blood pressure diastolic 78 mmHg 2017-11-03 MEDICATIONS Medication Instructions Dosage Frequency Start Date End Date Duration Status Cymbalta 30 MG Orally Once a day 1 capsule 24h Oct, 07 days Active HydrOXYzine Pamoate 25 MG Orally every 8 hrs 1 capsule as needed 8h 15 Sep 30 day(s) Active Meloxicam 7.5 MG Orally 2 times a day 1 tablet 12h Sep, Dec, 30 day(s) Active Cymbalta 60 mg Orally Once a day 1 capsule 24h Oct, 30 day(s) Active Loratadine 10 MG Orally Once a day 1 tablet 24h Active Sucralfate 1 GM TAKE ONE TABLET BY MOUTH FOUR TIMES DAILY BEFORE MEALS AND AT BEDTIME 30 Active Protonix 40 mg Orally Once a day 1 tablet 24h 30 Active Flonase 50 MCG/ACT Nasally Once a day 1 spray in each nostril 24h Dec, 30 day(s) Active RESULTS No Results PROCEDURES No Known [...]
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
--- OUTSIDE RECORDS SUMMARY | 2017-12-28 01:45 | XMS REPORT ---
Author Author REBA MCGHEE Organization [facility] Address [address] [place] [address] Care Team Providers Care Electric [employer] Winders Assembler Name Role Phone REBA MCGHEE Unavailable PROBLEMS Type Condition ICD9-CM Code LZN07-EV Code Onset Dates Condition Status SNOMED Code Problem Other chronic gastritis without hemorrhage K29.50 Active 3072218 Problem Allergic rhinitis, unspecified allergic rhinitis trigger, unspecified rhinitis seasonality J30.9 Active 78645274 Problem Other chronic pain G89.29 Active [id number] ALLERGIES No Information ENCOUNTERS Encounter Location Date Diagnosis [place] [address] [address] 02 May, 2017 [place] [address] [address]- [address] Apr, [place] [address] 20278- 8735 09 Apr, 2017 Allergic rhinitis, unspecified allergic rhinitis trigger, unspecified rhinitis seasonality J30.9 [place] [address] [place] [id number] [place] [address] 80699- 2778 02 Apr, 2017 Allergic rhinitis, unspecified allergic rhinitis trigger, unspecified rhinitis seasonality J30.9 [facility] [address] [address]- 2109 15 Apr, 2017 Other chronic gastritis without hemorrhage K29.50 [place] [address] [address]13- 9525 14 Apr, 2017 [place] [address] 89089- 7133 05 Apr, 2017 Allergic rhinitis, unspecified allergic rhinitis trigger, unspecified rhinitis seasonality J30.9 [place] [address] 80404- 8749 Apr, [facility] [address] [place] [id number] [place] [address] 378422- 9776 Mar, Allergic rhinitis, unspecified allergic rhinitis trigger, unspecified rhinitis seasonality J30.9 [facility] [address] [place] [id number] [place] [address] 26985- 6566 Mar, [facility] [address] 08106- 1371 Jan, [facility] [address] [place] [id number] [place] [address] 48111- 8572 Jan, [facility] [address] [place] [id number] [place] [address] 15448- 9293 Dec, Allergic rhinitis, unspecified allergic rhinitis trigger, unspecified rhinitis seasonality J30.9 ; Other chronic pain G89.29 ; Pain in left knee M25.562 ; Pain in right knee M25.561 and Low back pain M54.5 [facility] [address] [place] [id number] [place] [address] 12726- 6905 Dec, [facility] [address] [place] [id number] [place] [address] 58277- 3849 Nov, [facility] [id number] [place] [address] 36843- 0372 Nov, [facility] [address] [place] [id number] [place] [address] 85725- 6773 Nov, [facility] [address] [place] [id number] [place] [address] 39576- 7395 Oct, [facility] [address] [place] [id number] [place] [address] 538519- 8791 Sep, [facility] [address] [place] [id number] [place] [address] 46681- 7051 Aug, [facility] [id number] [place] [address] 36464 -3872 Aug, Laceration without foreign body, left lower leg, initial encounter S81.812A [place] [address] [place] [id number] [place] [address] 26365- 5236 Jul, [facility] [address] [place] [id number] [place] [address] 52081- 3131 June, [facility] [address] [place] [id number] [place] [address] 97588 -8758 June, Exposure to strep throat Z20.818 [facility] [address] [place] [id number] [place] [address] 94393- 2812 May, [place] [address] 53083- 3063 Apr, [place] [address] [place] [id number] [place] [address] 14287- 5950 Apr, Diverticulitis of intestine without perforation or abscess without bleeding, unspecified part of intestinal tract K57.92 and Other chronic pain G89.29 [place] [address] [place] [id number] [place] [address] 34087- 0851 Apr, Allergic rhinitis, unspecified allergic rhinitis trigger, unspecified rhinitis seasonality J30.9 [place] [address] [place] [id number] [place] [address] 83652- 0388 Mar, Allergic rhinitis, unspecified allergic rhinitis trigger, unspecified rhinitis seasonality J30.9 [place] [address] [place] [id number] [place] [address] 57277- 7849 Jan, Low back pain M54.5 and Allergic rhinitis, unspecified allergic rhinitis trigger, unspecified rhinitis seasonality J30.9 [place] [address] 43544- 5501 Dec, Allergic rhinitis, unspecified allergic rhinitis trigger, unspecified rhinitis seasonality J30.9 ; Encounter for immunization Z23 ; Low back pain M54.5 ; Other chronic pain G89.29 ; Pain in left knee M25.562 and Pain in right knee M25.561 [place] [address] [facility] [id number] [place] [address]- 0824 14 Nov, 2015 [facility] [address] [place] [id number] [place] [address]- 6579 14 Nov, 2015 [facility] [address] [facility] [id number] [place] [address]- 6682 14 Nov, 2015 [facility] [address] [place] [id number] [place] [address], [place] [address]- 4484 15 Oct, 2015 [facility] [address] [facility] [id number] [place] [address]- 1163 14 Oct, 2015 [facility] [address] [place] [id number] [place] [address], [place] [address]- 9169 14 Oct, 2015 [facility] [id number] [place] [address]- 4334 18 Sep, 2015 [facility] [id number] [place] [address]- 5329 Sep, [facility] [id number] [place] [address]- 0135 Sep, Adjustment disorder with anxiety F43.22 and Impulse control disorder F63.9 [facility] [address] [place] [address]- 9015 Aug, [facility] [address] [address]- 6485 Jul, [facility] [id number] [place] [address]- 0308 Jul, [facility] [id number] [place] [address]- 9312 Jul, [facility] [id number] [place] [address]- 7857 June, [facility] [id number] [place] [address]- 8491 May, [facility] [address] [address]- 3203 Apr, [facility] [address] [address]- 4656 Apr, [facility] [address] [place] [id number] [address]- 1024 Apr, Irritable bowel syndrome with diarrhea K58.0 [facility] [id number] [place] [address] 32467 -7566 Apr, Colitis K52.9 [facility] [address] [place] [address], [place] [address]- 2111 Mar, [facility] [id number] [place] [address] 34147- 4798 Jan, [facility] [id number] [place] [address] 49046- 2076 Jan, [facility] [address] [address]- 1980 Dec, [facility] [id number] [place] [address] 45836- 4755 Nov, [facility] [address] [address]- 6126 Oct, [facility] [address] [address]- 3141 Sep, [facility] [address] [address]- 6091 Aug, Ankle sprain 845.00 [facility] [address] [address]- 7478 Aug, Diverticulitis large intestine 562.11 [facility] [address] [address]- 9914 Aug, [facility] [address] [address]- 9095 Jul, Irritable bowel syndrome 564.1 [facility] [address] [facility] [id number] [place] [address]- 2491 Jul, Ankle sprain 845.00 [facility] [address] [id number] [place] [address]- 1523 Jul, [facility] [address] [facility] [id number] [address]- 3795 June, [facility] [address] [facility] [id number] [place] [address]- 2909 May, [facility] [address] [facility] [id number] [place] 7371 May, [facility] [address] 0761 Apr, [facility] [address] [place] [address]- 0873 Apr, [facility] [address] [facility] [id number], [place] [address]- 0060 Apr, [facility] [address] [place] [address]- 5879 Apr, [facility] [address] [place] [id number] [address]- 0777 Apr, [facility] [address] [place] [id number] [address]- 1147 Apr, [facility] [address] [facility] [id number], [place] [address]- 4316 Apr, [facility] [address] [facility] [id number], [place] [address]- 7846 Apr, [facility] [address] [facility] [id number], [place] [address]- 2436 Apr, [facility] [address] [place] [id number] [address]- 4328 14 Nov, 2013 [facility] [place] [facility] [address] [id number] [place] [address]- 4649 14 Nov, 2013 [facility] [place] [facility] [address] [id number] [place] [address]- 4399 Nov, [facility] [place] [facility] [address] [id number] [place] [address]- 1670 Nov, [facility] [place] [facility] [address] [id number] [place] [address]- 1224 Nov, [facility] [place] [facility] [address] [id number] [place] [address]- 5257 Sep, [facility] [place] [facility] [address] [id number] [place] [address]- 6252 Sep, [facility] [place] [facility] [address] [id number] [place] [address]- 9512 Sep, [facility] [place] [facility] [address] [id number] [place] [address]- 0255 Sep, [facility] [place] [facility] [address] [id number] [place] [address]- 6656 Sep, [facility] [place] [facility] [address] [id number] [place] [address]- 5695 Aug, [facility] [place] [facility] [address] [id number] [place] [address]- 0387 Aug, [facility] [place] [facility] [address] [id number] [place] [address]- 2985 Aug, [facility] [place] [facility] [address] [id number] [place] [address]- 0764 Aug, [facility] [place] [facility] [address] [id number] [place] [address]- 3119 Aug, [facility] [place] [facility] [address] [id number] [place] [address]- 4775 Aug, [facility] [place] [facility] [address] [id number] [place] [address]- 5614 Aug, [facility] [address] [id number] [place] [address]- 5498 Aug, [facility] [place] [facility] [address] [id number] [place] [address]- 4942 Aug, [facility] [place] [facility] [address] [id number] [place] [address]- 5991 Aug, [facility] [place] [facility] [address] [id number] [place] [address]- 4040 Aug, [facility] [place] [facility] [address] [id number] [place] [address]- 8784 Apr, [facility] [place] [facility] [address] [id number] [place] [address]- 4336 Apr, [facility] [place] [facility] [address] [id number] [place] [address]- 6856 Apr, [facility] [place] [facility] [address] [id number] [place] [address]- 6709 Apr, [facility] [place] [facility] [address] [id number] [place] [address]- 4250 Oct, [facility] [place] [facility] [address] [id number] [place] [address]- 2337 Sep, [facility] [place] [facility] [address] [id number] [place] [address]- 5510 Sep, [facility] [place] [facility] [address] [id number] [place] [address]- 3448 Aug, [facility] [place] [facility] [address] [id number] [place] [address]- 8732 May, [facility] [place] [facility] [address] [id number] [place] [address]- 7156 Mar, [facility] [place] [facility] [address] [id number] [place] [address]- 3914 Jan, [facility] [place] [facility] [address] [id number] [place] [address]- 1760 Jan, [facility] [place] [facility] [address] [id number] [place] 7917 Jan, [facility] [place] [facility] [address] [id number] [place] [address]- 7022 Jan, [facility] [place] [facility] [address] [id number] [place] [address]- 3106 Jan, [facility] [place] [facility] [address] [id number] [place] 2035 Dec, [facility] [place] [facility] [address] [id number] [place] [address]- 5516 Dec, [facility] [place] [facility] [address] [id number] [place] [address]- 1793 Oct, [facility] [place] [facility] [address] [id number] [place] [address]- 0303 Oct, [facility] [place] [facility] [address] [id number] [place] [address]- 7728 Sep, [facility] [place] [facility] [address] [id number] [place] [address]- 2737 Mar, [facility] [place] [facility] [address] [id number] [place] [address]- 7171 Mar, [facility] [place] [facility] [address] [id number], [place] [address]- 8441 Jan, [facility] [place] [facility] [address] [id number] [place] [address]- 9167 Jan, [facility] [place] [facility] [address] [id number] [place] [address]- 5421 May, [facility] [place] [facility] [address] [id number], [place] [address]- 7873 Mar, [facility] [place] [facility] [address] [id number], [place] [address]- 7486 Sep, IMMUNIZATIONS No Known Immunizations SOCIAL HISTORY Never Assessed REASON FOR VISIT Controlled Med denied PLAN OF CARE VITAL SIGNS MEDICATIONS Unknown [...]
--- OUTSIDE RECORDS SUMMARY | 2017-12-28 01:45 | XMS REPORT ---
Author Author REBA MCGHEE Organization [facility] Address [address] [place] [address] Care Team Providers Care Assistant Professor Of Biology Name Role Phone REBA MCGHEE Unavailable PROBLEMS Type Condition ICD9-CM Code VNC36-XG Code Onset Dates Condition Status SNOMED Code Problem Other chronic gastritis without hemorrhage K29.50 Active 1969797 Problem Allergic rhinitis, unspecified allergic rhinitis trigger, unspecified rhinitis seasonality J30.9 Active 49381168 Problem Other chronic pain G89.29 Active [id number] ALLERGIES No Information ENCOUNTERS Encounter Location Date Diagnosis [place] [address] [address] 02 May, 2017 [place] [address] [address] Apr, [place] [address] [address] 09 Apr, 2017 Allergic rhinitis, unspecified allergic rhinitis trigger, unspecified rhinitis seasonality J30.9 [place] [address] [place] [id number] [place] [address] 79645- 6191 02 Apr, 2017 Allergic rhinitis, unspecified allergic rhinitis trigger, unspecified rhinitis seasonality J30.9 [facility] [address] [address]- [address] 15 Apr, 2017 Other chronic gastritis without hemorrhage K29.50 [place] [address] [address]- 8826 14 Apr, 2017 [place] [address] [address]- 8005 05 Apr, 2017 Allergic rhinitis, unspecified allergic rhinitis trigger, unspecified rhinitis seasonality J30.9 [place] [address] [address]- 2866 Apr, [facility] [address] [place] [id number] [place] [address] 995129- 8556 Mar, Allergic rhinitis, unspecified allergic rhinitis trigger, unspecified rhinitis seasonality J30.9 [facility] [address] [place] [id number] [place] [address] 15804- 3176 Mar, [facility] [address] [address]- 6778 Jan, [facility] [address] [place] [id number] [place] [address] 85284- 7498 Jan, [facility] [address] [place] [id number] [place] [address] 28286- 5597 Dec, Allergic rhinitis, unspecified allergic rhinitis trigger, unspecified rhinitis seasonality J30.9 ; Other chronic pain G89.29 ; Pain in left knee M25.562 ; Pain in right knee M25.561 and Low back pain M54.5 [facility] [address] [place] [id number] [place] [address] 24133- 4279 Dec, [facility] [address] [place] [id number] [place] [address] 39526- 2371 Nov, [facility] [address] [place] [address] 26902- 3932 Nov, [facility] [address] [place] [id number] [place] [address] 26080- 6271 Nov, [facility] [address] [place] [id number] [place] [address] 80128- 7891 Oct, [facility] [address] [place] [id number] [place] [address] 194995- 9817 Sep, [facility] [address] [place] [id number] [place] [address] 71883- 9405 Aug, [facility] [address] [place] [address] 19589 -3704 Aug, Laceration without foreign body, left lower leg, initial encounter S81.812A [place] [address] [place] [id number] [place] [address] 19146- 9219 Jul, [facility] [address] [place] [id number] [place] [address] 86473- 6461 June, [facility] [address] [place] [id number] [place] [address] 07158 -3995 June, Exposure to strep throat Z20.818 [facility] [address] [place] [id number] [place] [address] 60520- 0154 May, [place] [address] 30922- 1337 Apr, [place] [address] [place] [id number] [place] [address] 37490- 6172 Apr, Diverticulitis of intestine without perforation or abscess without bleeding, unspecified part of intestinal tract K57.92 and Other chronic pain G89.29 [place] [address] [place] [id number] [place] [address] 41846- 5155 Apr, Allergic rhinitis, unspecified allergic rhinitis trigger, unspecified rhinitis seasonality J30.9 [place] [address] [place] [id number] [place] [address] 21065- 2982 Mar, Allergic rhinitis, unspecified allergic rhinitis trigger, unspecified rhinitis seasonality J30.9 [place] [address] [place] [id number] [place] [address] 92239- 0570 Jan, Low back pain M54.5 and Allergic rhinitis, unspecified allergic rhinitis trigger, unspecified rhinitis seasonality J30.9 [place] [address] 94113- 2648 Dec, Allergic rhinitis, unspecified allergic rhinitis trigger, unspecified rhinitis seasonality J30.9 ; Encounter for immunization Z23 ; Low back pain M54.5 ; Other chronic pain G89.29 ; Pain in left knee M25.562 and Pain in right knee M25.561 [place] [address] [facility] [id number] [place] [address]- 0073 14 Nov, 2015 [facility] [address] [place] [id number] [place] [address]- 7452 14 Nov, 2015 [facility] [address] [facility] [id number] [place] [address]- 9680 14 Nov, 2015 [facility] [address] [place] [id number] [place] [address], [place] [address]- 0155 15 Oct, 2015 [facility] [address] [facility] [id number] [place] [address]- 7846 14 Oct, 2015 [facility] [address] [place] [id number] [place] [address], [place] [address]- 8415 14 Oct, 2015 [facility] [address] [place] [address]- 2171 18 Sep, 2015 [facility] [address] [place] [address]- 2211 Sep, [facility] [address] [place] [address]- 1175 Sep, Adjustment disorder with anxiety F43.22 and Impulse control disorder F63.9 [facility] [address] [place] [address]- 0970 Aug, [facility] [address] [address]- 5843 Jul, [facility] [address] [place] [address]- 7022 Jul, [facility] [address] [place] [address]- 6436 Jul, [facility] [address] [place] [address]- 8071 June, [facility] [address] [place] [address]- 4034 May, [facility] [address] [address]- 8166 Apr, [facility] [address] [address]- 4518 Apr, [facility] [address] [place] [id number] [address]- 8895 Apr, Irritable bowel syndrome with diarrhea K58.0 [facility] [address] [place] [address] 52430 -8103 Apr, Colitis K52.9 [facility] [address] [place] [address], [place] [address]- 6826 Mar, [facility] [address] [place] [address] 58537- 4264 Jan, [facility] [address] [place] [address] 28805- 7610 Jan, [facility] [address] [address]- 8584 Dec, [facility] [address] [place] [address] 51026- 9190 Nov, [facility] [address] [address]- 2360 Oct, [facility] [address] [address]- 1667 Sep, [facility] [address] [address]- 6335 Aug, Ankle sprain 845.00 [facility] [address] [address]- 6426 Aug, Diverticulitis large intestine 562.11 [facility] [address] [address]- 0321 Aug, [facility] [address] [address]- 8711 Jul, Irritable bowel syndrome 564.1 [facility] [address] [facility] [address] [id number] [place] [address]- 4816 Jul, Ankle sprain 845.00 [facility] [address] [id number] [place] [address]- 3819 Jul, [facility] [address] [facility] [address] [id number] [address]- 3286 June, [facility] [address] [facility] [address] [id number] [place] [address]- 5693 May, [facility] [address] [facility] [address] [id number] [place] 2974 May, [facility] [address] 9675 Apr, [facility] [address] [place] [address]- 8763 Apr, [facility] [address] [facility] [address] [id number] [address]- 9730 Apr, [facility] [address] [place] [address]- 9124 Apr, [facility] [address] [place] [id number] [address]- 4695 Apr, [facility] [address] [place] [id number] [address]- 0898 Apr, [facility] [address] [facility] [address] [id number] [place] [address]- 3316 Apr, [facility] [address] [facility] [address] [id number] [address]- 5166 Apr, [facility] [address] [facility] [address] [id number] [place] [address]- 8016 Apr, [facility] [address] [place] [id number] [address]- 7013 14 Nov, 2013 [facility] [place] [facility] [address] [id number] [place] [address]- 8388 14 Nov, 2013 [facility] [place] [facility] [address] [id number] [place] [address]- 7078 Nov, [facility] [place] [facility] [address] [id number] [place] [address]- 8458 Nov, [facility] [place] [facility] [address] [id number] [place] [address]- 2827 Nov, [facility] [place] [facility] [address] [id number] [place] [address]- 0587 Sep, [facility] [place] [facility] [address] [id number] [place] [address]- 4359 Sep, [facility] [place] [facility] [address] [id number] [place] [address]- 2021 Sep, [facility] [place] [facility] [address] [id number] [place] [address]- 8278 Sep, [facility] [place] [facility] [address] [id number] [place] [address]- 4632 Sep, [facility] [place] [facility] [address] [id number] [place] [address]- 9342 Aug, [facility] [place] [facility] [address] [id number] [place] [address]- 1701 Aug, [facility] [place] [facility] [address] [id number] [place] [address]- 2563 Aug, [facility] [place] [facility] [address] [id number] [place] [address]- 7977 Aug, [facility] [place] [facility] [address] [id number] [place] [address]- 8088 Aug, [facility] [place] [facility] [address] [id number] [place] [address]- 5461 Aug, [facility] [place] [facility] [address] [id number] [place] [address]- 2499 Aug, [facility] [address] [id number] [place] [address]- 6725 Aug, [facility] [place] [facility] [address] [id number] [place] [address]- 9469 Aug, [facility] [place] [facility] [address] [id number] [place] [address]- 4302 Aug, [facility] [place] [facility] [address] [id number] [place] [address]- 4989 Aug, [facility] [place] [facility] [address] [id number] [place] [address]- 6749 Apr, [facility] [place] [facility] [address] [id number] [place] [address]- 5403 Apr, [facility] [place] [facility] [address] [id number] [place] [address]- 0516 Apr, [facility] [place] [facility] [address] [id number] [place] [address]- 8340 Apr, [facility] [place] [facility] [address] [id number] [place] [address]- 9375 Oct, [facility] [place] [facility] [address] [id number] [place] [address]- 6338 Sep, [facility] [place] [facility] [address] [id number] [place] [address]- 7655 Sep, [facility] [place] [facility] [address] [id number] [place] [address]- 6651 Aug, [facility] [place] [facility] [address] [id number] [place] [address]- 1353 May, [facility] [place] [facility] [address] [id number] [place] [address]- 2486 Mar, [facility] [place] [facility] [address] [id number] [place] [address]- 0953 Jan, [facility] [place] [facility] [address] [id number] [place] [address]- 3489 Jan, [facility] [place] [facility] [address] [id number] [place] 5931 Jan, [facility] [place] [facility] [address] [id number] [place] [address]- 4062 Jan, [facility] [place] [facility] [address] [id number] [place] [address]- 2317 Jan, [facility] [place] [facility] [address] [id number] [place] 6534 Dec, [facility] [place] [facility] [address] [id number] [place] [address]- 9342 Dec, [facility] [place] [facility] [address] [id number] [place] [address]- 9917 Oct, [facility] [place] [facility] [address] [id number] [place] [address]- 3207 Oct, [facility] [place] [facility] [address] [id number] [place] [address]- 3489 Sep, [facility] [place] [facility] [address] [id number] [place] [address]- 1556 Mar, [facility] [place] [facility] [address] [id number] [place] [address]- 2017 Mar, [facility] [place] [facility] [address] [id number] [place] [address]- 6943 Jan, [facility] [place] [facility] [address] [id number] [place] [address]- 0518 Jan, [facility] [place] [facility] [address] [id number] [place] [address]- 3264 May, [facility] [place] [facility] [address] [id number] [place] [address]- 5108 Mar, [facility] [place] [facility] [address] [id number] [place] [address]- 7666 Sep, IMMUNIZATIONS No Known Immunizations SOCIAL HISTORY Never Assessed REASON FOR VISIT Medication refill request PLAN OF CARE VITAL SIGNS MEDICATIONS Medication Instructions Dosage Frequency Start Date End Date Duration Status Metronidazole 500 mg Orally every 8 hrs 1 tablet 8h Nov, Dec, 10 day(s) Active RESULTS No Results PROCEDURES No [...]
--- OUTSIDE RECORDS SUMMARY | 2017-12-28 01:45 | XMS REPORT ---
Author Author REBA MCGHEE Organization [facility] [place] Address [address] [place] [address] Care Team Providers Care Booth Usher Name Role Phone REBA MCGHEE Unavailable PROBLEMS Type Condition ICD9-CM Code YNM25-SK Code Onset Dates Condition Status SNOMED Code Problem Other chronic gastritis without hemorrhage K29.50 Active 5585456 Problem Allergic rhinitis, unspecified allergic rhinitis trigger, unspecified rhinitis seasonality J30.9 Active 94504275 Problem Other chronic pain G89.29 Active 20643481 ALLERGIES No Information ENCOUNTERS Encounter Location Date Diagnosis [place] [address] [address] 02 May, 2017 [place] [id number] [address]- [address] Apr, [place] [address] [address]- [address] 09 Apr, 2017 Allergic rhinitis, unspecified allergic rhinitis trigger, unspecified rhinitis seasonality J30.9 [place] [address] [place] [id number] [place] [address] 93668- 2574 02 Apr, 2017 Allergic rhinitis, unspecified allergic rhinitis trigger, unspecified rhinitis seasonality J30.9 [facility] [place] [address] [address]- 98[address] 15 Apr, 2017 Other chronic gastritis without hemorrhage K29.50 [place] [address] 6[address]- 0643 14 Apr, 2017 [place] [address] 8[address]33- 3827 05 Apr, 2017 Allergic rhinitis, unspecified allergic rhinitis trigger, unspecified rhinitis seasonality J30.9 [place] [address] [address]- [address] Apr, [facility] [place] [address] [place] [id number] [place] [address] 111514- 5176 Mar, Allergic rhinitis, unspecified allergic rhinitis trigger, unspecified rhinitis seasonality J30.9 [facility] [place] [address] [place] [id number] [place] [address] 62403- 8056 Mar, [facility] [place] [address] [address]- 2378 Jan, [facility] [place] [address] [place] [id number] [place] [address] 07817- 2022 Jan, [facility] [place] [address] [place] [id number] [place] [address] 60442- 2818 Dec, Allergic rhinitis, unspecified allergic rhinitis trigger, unspecified rhinitis seasonality J30.9 ; Other chronic pain G89.29 ; Pain in left knee M25.562 ; Pain in right knee M25.561 and Low back pain M54.5 [facility] [place] [address] [place] [id number] [place] [address] 05331- 5366 Dec, [facility] [place] [address] [place] [id number] [place] [address] 90133- 8534 Nov, [facility] [place] [id number] [place] [address] 30997- 7373 Nov, [facility] [place] [address] [place] [id number] [place] [address] 91362- 7812 Nov, [facility] [place] [address] [place] [id number] [place] [address] 69636- 2594 Oct, [facility] [place] [address] [place] [id number] [place] [address] 872909- 3179 Sep, [facility] [place] [address] [place] [id number] [place] [address] 25735- 0464 Aug, [facility] [id number] [place] [address] 78449 -7958 Aug, Laceration without foreign body, left lower leg, initial encounter S81.812A [place] [address] [place] [id number] [place] [address] 00178- 7751 Jul, [facility] [place] [address] [place] [id number] [place] [address] 93277- 5490 June, [facility] [address] [place] [id number] [place] [address] 40183 -3529 June, Exposure to strep throat Z20.818 [facility] [place] [address] [place] [id number] [place] [address] 65469- 2370 May, [place] [address] 02837- 9037 Apr, [place] [address] [place] [id number] [place] [address] 80714- 3092 Apr, Diverticulitis of intestine without perforation or abscess without bleeding, unspecified part of intestinal tract K57.92 and Other chronic pain G89.29 [place] [address] [place] [id number] [place] [address] 89819- 2892 03 Apr, 2016 Allergic rhinitis, unspecified allergic rhinitis trigger, unspecified rhinitis seasonality J30.9 [place] [address] [place] [id number] [place] [address] 62895- 7817 Mar, Allergic rhinitis, unspecified allergic rhinitis trigger, unspecified rhinitis seasonality J30.9 [place] [address] [place] [id number] [place] [address] 76406- 1236 Jan, Low back pain M54.5 and Allergic rhinitis, unspecified allergic rhinitis trigger, unspecified rhinitis seasonality J30.9 [place] [address] 75858- 0093 03 Dec, 2015 Encounter for immunization Z23 ; Allergic rhinitis, unspecified allergic rhinitis trigger, unspecified rhinitis seasonality J30.9 ; Low back pain M54.5 ; Other chronic pain G89.29 ; Pain in left knee M25.562 and Pain in right knee M25.561 [place] [address] [facility] [id number] [place] [address]- 3208 14 Nov, 2015 [facility] [address] [place] [id number] [place] [address]- 7543 14 Nov, 2015 [facility] [address] [facility] [id number] [place] [address]- 5791 14 Nov, 2015 [facility] [address] [place] [id number] [place] [address], [place] [address]- 1726 15 Oct, 2015 [facility] [address] [facility] [id number] [place] [address]- 5136 14 Oct, 2015 [facility] [address] [place] [id number] [place] [address], [place] [address]- 7642 14 Oct, 2015 [facility] [address] [place] [address]- 1156 18 Sep, 2015 [facility] [address] [place] [address]- 0314 Sep, [facility] [address] [place] [address]- 1897 Sep, Adjustment disorder with anxiety F43.22 and Impulse control disorder F63.9 [facility] [place] [address] [place] [address]- 8531 Aug, [facility] [place] [address] [address]- 7359 Jul, [facility] [address] [place] [address]- 0251 Jul, [facility] [address] [place] [address]- 2865 Jul, [facility] [address] [place] [address]- 8683 June, [facility] [address] [place] [address]- 5993 May, [facility] [place] [address] [address]- 1837 Apr, [facility] [place] [address] [address]- 0150 Apr, [facility] [place] [address] [place] [id number] [address]- 7253 Apr, Irritable bowel syndrome with diarrhea K58.0 [facility] [id number] [place] [address] 22012 -3246 Apr, Colitis K52.9 [facility] [place] [address] [place] [address], [place] [address]- 0852 Mar, [facility] [place] [id number] [place] [address] 11367- 6498 Jan, [facility] [place] [id number] [place] [address] 35277- 9656 Jan, [facility] [place] [address] [address]- 1018 Dec, [facility] [place] [id number] [place] [address] 23458- 7792 Nov, [facility] [place] [address] [address]- 7647 Oct, [facility] [place] [address] [address]- 0234 Sep, [facility] [place] [address] [address]- 2172 Aug, Ankle sprain 845.00 [facility] [place] [address] [address]- 1854 Aug, Diverticulitis large intestine 562.11 [facility] [place] [address] [address]- 1698 Aug, [facility] [place] [address] [address]- 1563 Jul, Irritable bowel syndrome 564.1 [facility] [place] [address] [facility] [id number] [place] [address]- 9251 Jul, Ankle sprain 845.00 [facility] [address] [id number] [place] [address]- 7743 Jul, [facility] [address] [facility] [id number] [place] [address]- 5247 June, [facility] [address] [facility] [id number] [place] [address]- 9984 May, [facility] [address] [facility] [id number] [place] 1739 May, [facility] [place] [address] 2252 Apr, [facility] [address] [place] [address]- 7294 Apr, [facility] [place] [address] [facility] [id number] [place] [address]- 3894 Apr, [facility] [address] [place] [address]- 7059 Apr, [facility] [place] [address] [place] [id number] [address]- 0979 Apr, [facility] [place] [address] [place] [id number] [address]- 6409 Apr, [facility] [place] [address] [facility] [id number] [place] [address]- 1806 Apr, [facility] [address] [facility] [id number] [place] [address]- 1546 Apr, [facility] [place] [address] [facility] [id number] [place] [address]- 9806 Apr, [facility] [place] [address] [place] [id number] [address]- 6828 14 Nov, 2013 [facility] [place] [facility] [address] [id number] [place] [address]- 9005 14 Nov, 2013 [facility] [place] [facility] [address] [id number] [place] [address]- 3394 Nov, [facility] [place] [facility] [address] [id number] [place] [address]- 1889 Nov, [facility] [place] [facility] [address] [id number] [place] [address]- 4365 Nov, [facility] [place] [facility] [address] [id number] [place] [address]- 3431 Sep, [facility] [place] [facility] [address] [id number] [place] [address]- 3703 Sep, [facility] [place] [facility] [address] [id number] [place] [address]- 2742 Sep, [facility] [place] [facility] [address] [id number] [place] [address]- 3196 Sep, [facility] [place] [facility] [address] [id number] [place] [address]- 3594 Sep, [facility] [place] [facility] [address] [id number] [place] [address]- 0927 Aug, [facility] [place] [facility] [address] [id number] [place] [address]- 7169 Aug, [facility] [place] [facility] [address] [id number] [place] [address]- 1861 Aug, [facility] [place] [facility] [address] [id number] [place] [address]- 8105 Aug, [facility] [place] [facility] [address] [id number] [place] [address]- 9935 Aug, [facility] [place] [facility] [address] [id number] [place] [address]- 0791 Aug, [facility] [place] [facility] [address] [id number] [place] [address]- 1981 Aug, [facility] [address] [id number] [place] [address]- 3035 Aug, [facility] [place] [facility] [address] [id number] [place] [address]- 4857 Aug, [facility] [place] [facility] [address] [id number] [place] [address]- 5427 Aug, [facility] [place] [facility] [address] [id number] [place] [address]- 1485 Aug, [facility] [place] [facility] [address] [id number] [place] [address]- 9709 Apr, [facility] [place] [facility] [address] [id number] [place] [address]- 0280 Apr, [facility] [place] [facility] [address] [id number] [place] [address]- 1071 Apr, [facility] [place] [facility] [address] [id number] [place] [address]- 7667 Apr, [facility] [place] [facility] [address] [id number] [place] [address]- 6337 Oct, [facility] [place] [facility] [address] [id number] [place] [address]- 5497 Sep, [facility] [place] [facility] [address] [id number] [place] [address]- 6398 Sep, [facility] [place] [facility] [address] [id number] [place] [address]- 6332 Aug, [facility] [place] [facility] [address] [id number] [place] [address]- 4862 May, [facility] [place] [facility] [address] [id number] [place] [address]- 6886 Mar, [facility] [place] [facility] [address] [id number] [place] [address]- 0101 Jan, [facility] [place] [facility] [address] [id number] [place] [address]- 6424 Jan, [facility] [place] [facility] [address] [id number] [place] 9849 Jan, [facility] [place] [facility] [address] [id number] [place] [address]- 8754 Jan, [facility] [place] [facility] [address] [id number] [place] [address]- 5281 Jan, [facility] [place] [facility] [address] [id number] [place] [address]291 Dec, [facility] [place] [facility] [address] [id number] [place] [address]- 0680 Dec, [facility] [place] [facility] [address] [id number] [place] [address]- 7564 Oct, [facility] [place] [facility] [address] [id number] [place] [address]- 1038 Oct, [facility] [place] [facility] [address] [id number] [place] [address]- 9883 Sep, [facility] [place] [facility] [address] [id number] [place] [address]- 7357 Mar, [facility] [place] [facility] [address] [id number] [place] [address]- 6175 Mar, [facility] [place] [facility] [address] [id number] [place] [address]- 1266 Jan, [facility] [place] [facility] [address] [id number] [place] [address]- 5165 Jan, [facility] [place] [facility] [address] [id number] [place] [address]- 6394 May, [facility] [place] [facility] [address] [id number] [place] [address]- 9860 Mar, [facility] [place] [facility] [address] [id number] [place] [address]- 2546 Sep, IMMUNIZATIONS No Known Immunizations SOCIAL HISTORY Never Assessed REASON FOR VISIT Controlled Med TAPER PLAN OF CARE VITAL SIGNS MEDICATIONS Medication Instructions Dosage Frequency Start Date End Date Duration Status Klonopin 1 MG Orally Once a day x28 days then stop 1 tablet May, 28 days Active RESULTS No Results PROCEDURES [...]
--- OUTSIDE RECORDS SUMMARY | 2017-12-28 01:46 | XMS REPORT ---
Author Author REBA MCGHEE Organization [facility] Address [address] [place] [address] Care Team Providers Care Technology Strategist Name Role Phone REBA MCGHEE Unavailable PROBLEMS Type Condition ICD9-CM Code MQO56-EF Code Onset Dates Condition Status SNOMED Code Problem Other chronic gastritis without hemorrhage K29.50 Active 0391092 Problem Allergic rhinitis, unspecified allergic rhinitis trigger, unspecified rhinitis seasonality J30.9 Active 52940571 Problem Other chronic pain G89.29 Active [id number] ALLERGIES No Information ENCOUNTERS Encounter Location Date Diagnosis [place] [address] [address] 02 May, 2017 [place] [id number] [address] Apr, [place] [address] [address]- [address] 09 Apr, 2017 Allergic rhinitis, unspecified allergic rhinitis trigger, unspecified rhinitis seasonality J30.9 [place] [address] [place] [id number] [place] [address]5864- 0722 02 Apr, 2017 Allergic rhinitis, unspecified allergic rhinitis trigger, unspecified rhinitis seasonality J30.9 [facility] [address] [address]- [address] 15 Apr, 2017 Other chronic gastritis without hemorrhage K29.50 [place] [address] [address]- [address] 14 Apr, 2017 [place] [address] [address]- [address] 05 Apr, 2017 Allergic rhinitis, unspecified allergic rhinitis trigger, unspecified rhinitis seasonality J30.9 [place] [address] 03541- 9695 Apr, [facility] [address] [place] [id number] [place] [address] 327573- 8086 Mar, Allergic rhinitis, unspecified allergic rhinitis trigger, unspecified rhinitis seasonality J30.9 [facility] [address] [place] [id number] [place] [address] 14687- 3106 Mar, [facility] [address] [address]66- 6561 Jan, [facility] [address] [place] [id number] [place] [address] 70111- 9489 Jan, [facility] [address] [place] [id number] [place] [address] 80707- 5748 Dec, Allergic rhinitis, unspecified allergic rhinitis trigger, unspecified rhinitis seasonality J30.9 ; Other chronic pain G89.29 ; Pain in left knee M25.562 ; Pain in right knee M25.561 and Low back pain M54.5 [facility] [address] [place] [id number] [place] [address] 12376- 8190 Dec, [facility] [address] [place] [id number] [place] [address] 36653- 8357 Nov, [facility] [id number] [place] [address] 02171- 2413 Nov, [facility] [address] [place] [id number] [place] [address] 45237- 6007 Nov, [facility] [address] [place] [id number] [place] [address] 10671- 6980 Oct, [facility] [address] [place] [id number] [place] [address] 027006- 0646 Sep, [facility] [address] [place] [id number] [place] [address] 44058- 6623 Aug, [facility] [id number] [place] [address] 00577 -7113 Aug, Laceration without foreign body, left lower leg, initial encounter S81.812A [place] [address] [place] [id number] [place] [address] 16010- 1143 Jul, [facility] [address] [place] [id number] [place] [address] 02081- 6669 June, [facility] [address] [place] [id number] [place] [address] 43269 -4025 June, Exposure to strep throat Z20.818 [facility] [address] [place] [id number] [place] [address] 85891- 0345 May, [place] [address] 71100- 5675 Apr, [place] [address] [place] [id number] [place] [address] 15546- 9596 Apr, Diverticulitis of intestine without perforation or abscess without bleeding, unspecified part of intestinal tract K57.92 and Other chronic pain G89.29 [place] [address] [place] [id number] [place] [address] 91497- 4174 03 Apr, 2016 Allergic rhinitis, unspecified allergic rhinitis trigger, unspecified rhinitis seasonality J30.9 [place] [address] [place] [id number] [place] [address] 13900- 2677 Mar, Allergic rhinitis, unspecified allergic rhinitis trigger, unspecified rhinitis seasonality J30.9 [place] [address] [place] [id number] [place] [address] 54927- 1645 Jan, Low back pain M54.5 and Allergic rhinitis, unspecified allergic rhinitis trigger, unspecified rhinitis seasonality J30.9 [place] [address] 76639- 7667 03 Dec, 2015 Encounter for immunization Z23 ; Allergic rhinitis, unspecified allergic rhinitis trigger, unspecified rhinitis seasonality J30.9 ; Low back pain M54.5 ; Other chronic pain G89.29 ; Pain in left knee M25.562 and Pain in right knee M25.561 [place] [address] [facility] [id number] [place] [address]- 5824 14 Nov, 2015 [facility] [address] [place] [id number] [place] [address]- 8865 14 Nov, 2015 [facility] [address] [facility] [id number] [place] [address]- 4954 14 Nov, 2015 [facility] [address] [place] [id number] [place] [address], [place] [address]- 1351 15 Oct, 2015 [facility] [address] [facility] [id number] [place] [address]- 5500 14 Oct, 2015 [facility] [address] [place] [id number] [place] [address], [place] [address]- 1793 14 Oct, 2015 [facility] [address] [place] [address]- 6965 18 Sep, 2015 [facility] [id number] [place] [address]- 3223 Sep, [facility] [id number] [place] [address]- 3895 Sep, Adjustment disorder with anxiety F43.22 and Impulse control disorder F63.9 [facility] [id number] [place] [address]- 4851 Aug, [facility] [id number] [address]- 3502 Jul, [facility] [id number] [place] [address]- 5981 Jul, [facility] [id number] [place] [address]- 0427 Jul, [facility] [id number] [place] [address]- 2988 June, [facility] [id number] [place] [address]- 9729 May, [facility] [id number], [place] [address]- 2600 Apr, [facility] [id number], [place] [address]- 7508 Apr, [facility] [address] [place] [id number] [address]- 7237 Apr, Irritable bowel syndrome with diarrhea K58.0 [facility] [id number] [place] [address] 97394 -8587 Apr, Colitis K52.9 [facility] [id number] [place] [address], [place] [address]- 4289 Mar, [facility] [id number] [place] [address] 72940- 8276 Jan, [facility] [id number] [place] [address] 71286- 1921 Jan, [facility] [address], [place] [address]- 7014 Dec, [facility] [id number] [place] [address] 04699- 7401 Nov, [facility] [address], [place] [address]- 1477 Oct, [facility] [id number], [place] [address]- 4003 Sep, [facility] [address], [place] [address]- 4468 Aug, Ankle sprain 845.00 [facility] [address], [place] [address]- 8881 Aug, Diverticulitis large intestine 562.11 [facility] [address], [place] [address]- 0795 Aug, [facility] [address], [place] [address]- 7342 Jul, Irritable bowel syndrome 564.1 [facility] [address] [facility] [id number] [place] [address]- 6232 Jul, Ankle sprain 845.00 [facility] [address] [id number] [place] [address]- 7993 Jul, [facility] [place] [facility] [address] [facility] [id number], [place] [address]- 2001 June, [facility] [address] [facility] [id number] [place] [address]- 6265 May, [facility] [place] [facility] [address] [facility] [id number] [place] 3805 May, [facility] [address] 5971 Apr, [facility] [place] [facility] [address] [place] [address]- 8457 Apr, [facility] [address] [facility] [id number], [place] [address]- 2377 Apr, [facility] [place] [facility] [address] [place] [address]- 2509 Apr, [facility] [address] [place] [id number] [address]- 8080 Apr, [facility] [address] [id number] [address]- 0941 Apr, [facility] [address] [facility] [id number], [place] [address]- 2796 Apr, [facility] [address] [facility] [id number], [place] [address]- 7936 Apr, [facility] [address] [facility] [id number], [place] [address]- 4626 Apr, [facility] [address] [place] [id number] [address]- 9862 14 Nov, 2013 [facility] [place] [facility] [address] [id number] [place] [address]- 8045 14 Nov, 2013 [facility] [place] [facility] [address] [id number] [place] [address]- 0051 Nov, [facility] [place] [facility] [address] [id number] [place] [address]- 9753 Nov, [facility] [place] [facility] [address] [id number] [place] [address]- 7234 Nov, [facility] [place] [facility] [address] [id number] [place] [address]- 9788 Sep, [facility] [place] [facility] [address] [id number] [place] [address]- 9604 Sep, [facility] [place] [facility] [address] [id number] [place] [address]- 1102 Sep, [facility] [place] [facility] [address] [id number] [place] [address]- 7156 Sep, [facility] [place] [facility] [address] [id number] [place] [address]- 8346 Sep, [facility] [place] [facility] [address] [id number] [place] [address]- 1059 Aug, [facility] [place] [facility] [address] [id number] [place] [address]- 7933 Aug, [facility] [place] [facility] [address] [id number] [place] [address]- 3462 Aug, [facility] [place] [facility] [address] [id number] [place] [address]- 5621 Aug, [facility] [place] [facility] [address] [id number] [place] [address]- 4503 Aug, [facility] [place] [facility] [address] [id number] [place] [address]- 8231 Aug, [facility] [place] [facility] [address] [id number] [place] [address]- 8527 Aug, [facility] [address] [id number] [place] [address]- 5293 Aug, [facility] [place] [facility] [address] [id number] [place] [address]- 7748 Aug, [facility] [place] [facility] [address] [id number] [place] [address]- 8685 Aug, [facility] [place] [facility] [address] [id number] [place] [address]- 3769 Aug, [facility] [place] [facility] [address] [id number] [place] [address]- 1505 Apr, [facility] [place] [facility] [address] [id number] [place] [address]- 2973 Apr, [facility] [place] [facility] [address] [id number] [place] [address]- 7998 Apr, [facility] [place] [facility] [address] [id number] [place] [address]- 1973 Apr, [facility] [place] [facility] [address] [id number] [place] [address]- 0124 Oct, [facility] [place] [facility] [address] [id number] [place] [address]- 8366 Sep, [facility] [place] [facility] [address] [id number] [place] [address]- 7194 Sep, [facility] [place] [facility] [address] [id number] [place] [address]- 9854 Aug, [facility] [place] [facility] [address] [id number] [place] [address]- 8668 May, [facility] [place] [facility] [address] [id number] [place] [address]- 6846 Mar, [facility] [place] [facility] [address] [id number] [place] [address]- 8753 Jan, [facility] [place] [facility] [address] [id number] [place] [address]- 4097 Jan, [facility] [place] [facility] [address] [id number] [place] 3347 Jan, [facility] [place] [facility] [address] [id number] [place] [address]- 1828 Jan, [facility] [place] [facility] [address] [id number] [place] [address]- 1095 Jan, [facility] [place] [facility] [address] [id number] [place] 8811 Dec, [facility] [place] [facility] [address] [id number] [place] [address]- 6863 Dec, [facility] [place] [facility] [address] [id number] [place] [address]- 7259 Oct, [facility] [place] [facility] [address] [id number] [place] [address]- 5786 Oct, [facility] [place] [facility] [address] [id number] [place] [address]- 9002 Sep, [facility] [place] [facility] [address] [id number] [place] [address]- 5956 Mar, [facility] [place] [facility] [address] [id number] [place] [address]- 8850 Mar, [facility] [place] [facility] [address] [id number], [place] [address]- 3651 Jan, [facility] [place] [facility] [address] [id number] [place] [address]- 9444 Jan, [facility] [place] [facility] [address] [id number] [place] [address]- 4804 May, [facility] [place] [facility] [address] [id number], [place] [address]- 8112 Mar, [facility] [place] [facility] [address] [id number], [place] [address]- 4466 Sep, IMMUNIZATIONS No Known Immunizations SOCIAL HISTORY Never Assessed REASON FOR VISIT PLAN OF CARE VITAL SIGNS MEDICATIONS Unknown [...]
--- OUTSIDE RECORDS SUMMARY | 2017-12-28 01:46 | XMS REPORT ---
Author Author REBA MCGHEE Organization [facility] Address [address] [place] [address] Care Team Providers Care Tailor [employer] Name Role Phone REBA MCGHEE Unavailable PROBLEMS Type Condition ICD9-CM Code YTW56-SQ Code Onset Dates Condition Status SNOMED Code Problem Other chronic gastritis without hemorrhage K29.50 Active 1566938 Problem Allergic rhinitis, unspecified allergic rhinitis trigger, unspecified rhinitis seasonality J30.9 Active 07986436 Problem Other chronic pain G89.29 Active [id number] ALLERGIES No Information ENCOUNTERS Encounter Location Date Diagnosis [place] [address] [address] 02 May, 2017 [place] [address] [address]- [address] Apr, [place] [address] 11761- 6[address] 09 Apr, 2017 Allergic rhinitis, unspecified allergic rhinitis trigger, unspecified rhinitis seasonality J30.9 [place] [address] [place] [id number] [place] [address] 27243- 8830 02 Apr, 2017 Allergic rhinitis, unspecified allergic rhinitis trigger, unspecified rhinitis seasonality J30.9 [facility] [address] [address]- 0304 15 Apr, 2017 Other chronic gastritis without hemorrhage K29.50 [place] [address] [address]- [address] 14 Apr, 2017 [place] [address] 06321- 0507 05 Apr, 2017 Allergic rhinitis, unspecified allergic rhinitis trigger, unspecified rhinitis seasonality J30.9 [place] [address] 7[address]53- 4917 Apr, [facility] [address] [place] [id number] [place] [address] 491217- 1796 Mar, Allergic rhinitis, unspecified allergic rhinitis trigger, unspecified rhinitis seasonality J30.9 [facility] [address] [place] [id number] [place] [address] 61152- 9316 Mar, [facility] [address] 21513- 8528 Jan, [facility] [address] [place] [id number] [place] [address] 49880- 9745 Jan, [facility] [address] [place] [id number] [place] [address] 61768- 9163 Dec, Allergic rhinitis, unspecified allergic rhinitis trigger, unspecified rhinitis seasonality J30.9 ; Other chronic pain G89.29 ; Pain in left knee M25.562 ; Pain in right knee M25.561 and Low back pain M54.5 [facility] [address] [place] [id number] [place] [address] 25063- 4268 Dec, [facility] [address] [place] [id number] [place] [address] 73195- 1139 Nov, [facility] [id number] [place] [address] 46168- 3068 Nov, [facility] [address] [place] [id number] [place] [address] 09733- 3114 Nov, [facility] [address] [place] [id number] [place] [address] 14422- 5306 Oct, [facility] [address] [place] [id number] [place] [address] 317547- 8669 Sep, [facility] [address] [place] [id number] [place] [address] 84920- 3926 Aug, [facility] [address] [place] [address] 31445 -3113 Aug, Laceration without foreign body, left lower leg, initial encounter S81.812A [place] [address] [place] [id number] [place] [address] 00959- 7803 Jul, [facility] [address] [place] [id number] [place] [address] 85511- 0522 June, [facility] [address] [place] [id number] [place] [address] 62119 -1793 June, Exposure to strep throat Z20.818 [facility] [address] [place] [id number] [place] [address] 22818- 1104 May, [place] [address] 20186- 8991 Apr, [place] [address] [place] [id number] [place] [address] 86436- 1619 Apr, Diverticulitis of intestine without perforation or abscess without bleeding, unspecified part of intestinal tract K57.92 and Other chronic pain G89.29 [place] [address] [place] [id number] [place] [address] 52268- 4046 Apr, Allergic rhinitis, unspecified allergic rhinitis trigger, unspecified rhinitis seasonality J30.9 [place] [address] [place] [id number] [place] [address] 10321- 9912 Mar, Allergic rhinitis, unspecified allergic rhinitis trigger, unspecified rhinitis seasonality J30.9 [place] [address] [place] [id number] [place] [address] 14766- 1664 Jan, Low back pain M54.5 and Allergic rhinitis, unspecified allergic rhinitis trigger, unspecified rhinitis seasonality J30.9 [place] [address] 55645- 8374 Dec, Allergic rhinitis, unspecified allergic rhinitis trigger, unspecified rhinitis seasonality J30.9 ; Encounter for immunization Z23 ; Low back pain M54.5 ; Other chronic pain G89.29 ; Pain in left knee M25.562 and Pain in right knee M25.561 [place] [address] [facility] [id number] [place] [address]- 3302 14 Nov, 2015 [facility] [address] [place] [id number] [place] [address]- 9382 14 Nov, 2015 [facility] [address] [facility] [id number] [place] [address]- 7293 14 Nov, 2015 [facility] [address] [place] [id number] [place] [address], [place] [address]- 0494 15 Oct, 2015 [facility] [address] [facility] [id number] [place] [address]- 6349 14 Oct, 2015 [facility] [address] [place] [id number] [place] [address], [place] [address]- 3240 14 Oct, 2015 [facility] [id number] [place] [address]- 8444 18 Sep, 2015 [facility] [id number] [place] [address]- 9976 Sep, [facility] [id number] [place] [address]- 1291 Sep, Adjustment disorder with anxiety F43.22 and Impulse control disorder F63.9 [facility] [address] [place] [address]- 7738 Aug, [facility] [address] [address]- 1879 Jul, [facility] [id number] [place] [address]- 9835 Jul, [facility] [id number] [place] [address]- 2705 Jul, [facility] [id number] [place] [address]- 7441 June, [facility] [id number] [place] [address]- 3569 May, [facility] [address] [address]- 5236 Apr, [facility] [address] [address]- 4477 Apr, [facility] [address] [place] [id number] [address]- 5123 Apr, Irritable bowel syndrome with diarrhea K58.0 [facility] [id number] [place] [address] 51349 -5341 Apr, Colitis K52.9 [facility] [id number] [place] [address], [place] [address]- 2053 Mar, [facility] [id number] [place] [address] 98221- 2306 Jan, [facility] [id number] [place] [address] 16600- 9181 Jan, [facility] [address] [address]- 3540 Dec, [facility] [id number] [place] [address] 52711- 2209 Nov, [facility] [address] [address]- 8431 Oct, [facility] [address] [address]- 9027 Sep, [facility] [address] [address]- 6475 Aug, Ankle sprain 845.00 [facility] [address] [address]- 1703 Aug, Diverticulitis large intestine 562.11 [facility] [address] [address]- 4918 Aug, [facility] [address] [address]- 7187 Jul, Irritable bowel syndrome 564.1 [facility] [address] [facility] [id number] [place] [address]- 4135 Jul, Ankle sprain 845.00 [facility] [address] [id number] [place] [address]- 1995 Jul, [facility] [address] [facility] [id number] [address]- 2903 June, [facility] [address] [facility] [id number] [place] [address]- 5688 May, [facility] [address] [facility] [id number] [place] [address]86 May, [facility] [address] [address] Apr, [facility] [id number] [place] [address]- 0571 Apr, [facility] [address] [facility] [id number] [address]- 5589 Apr, [facility] [id number] [place] [address]- 9889 Apr, [facility] [address] [place] [id number] [address]- 3468 Apr, [facility] [address] [place] [id number] [address]- 2367 Apr, [facility] [address] [facility] [id number] [address]- 6446 Apr, [facility] [address] [facility] [id number] [place] [address]- 7056 Apr, [facility] [address] [facility] [id number] [place] [address]- 4386 Apr, [facility] [address] [place] [id number] [address]- 6184 14 Nov, 2013 [facility] [place] [facility] [address] [id number] [place] [address]- 0701 14 Nov, 2013 [facility] [place] [facility] [address] [id number] [place] [address]- 2093 Nov, [facility] [place] [facility] [address] [id number] [place] [address]- 7740 Nov, [facility] [place] [facility] [address] [id number] [place] [address]- 4200 Nov, [facility] [place] [facility] [address] [id number] [place] [address]- 4486 Sep, [facility] [place] [facility] [address] [id number] [place] [address]- 2947 Sep, [facility] [place] [facility] [address] [id number] [place] [address]- 5427 Sep, [facility] [place] [facility] [address] [id number] [place] [address]- 3190 Sep, [facility] [place] [facility] [address] [id number] [place] [address]- 4400 Sep, [facility] [place] [facility] [address] [id number] [place] [address]- 2726 Aug, [facility] [place] [facility] [address] [id number] [place] [address]- 6088 Aug, [facility] [place] [facility] [address] [id number] [place] [address]- 8927 Aug, [facility] [place] [facility] [address] [id number] [place] [address]- 8583 Aug, [facility] [place] [facility] [address] [id number] [place] [address]- 3191 Aug, [facility] [place] [facility] [address] [id number] [place] [address]- 4168 Aug, [facility] [place] [facility] [address] [id number] [place] [address]- 0373 Aug, [facility] [address] [id number] [place] [address]- 0842 Aug, [facility] [place] [facility] [address] [id number] [place] [address]- 1746 Aug, [facility] [place] [facility] [address] [id number] [place] [address]- 0203 Aug, [facility] [place] [facility] [address] [id number] [place] [address]- 1613 Aug, [facility] [place] [facility] [address] [id number] [place] [address]- 1339 Apr, [facility] [place] [facility] [address] [id number] [place] [address]- 2507 Apr, [facility] [place] [facility] [address] [id number] [place] [address]- 5129 Apr, [facility] [place] [facility] [address] [id number] [place] [address]- 7495 Apr, [facility] [place] [facility] [address] [id number] [place] [address]- 8555 Oct, [facility] [place] [facility] [address] [id number] [place] [address]- 8055 Sep, [facility] [place] [facility] [address] [id number] [place] [address]- 3732 Sep, [facility] [place] [facility] [address] [id number] [place] [address]- 2495 Aug, [facility] [place] [facility] [address] [id number] [place] [address]- 3882 May, [facility] [place] [facility] [address] [id number] [place] [address]- 7856 Mar, [facility] [place] [facility] [address] [id number] [place] [address]- 1426 Jan, [facility] [place] [facility] [address] [id number] [place] [address]- 4479 Jan, [facility] [place] [facility] [address] [id number] [place] 2968 Jan, [facility] [place] [facility] [address] [id number] [place] [address]- 5931 Jan, [facility] [place] [facility] [address] [id number] [place] [address]- 4258 Jan, [facility] [place] [facility] [address] [id number] [place] 1987 Dec, [facility] [place] [facility] [address] [id number] [place] [address]- 2949 Dec, [facility] [place] [facility] [address] [id number] [place] [address]- 5453 Oct, [facility] [place] [facility] [address] [id number] [place] [address]- 4638 Oct, [facility] [place] [facility] [address] [id number] [place] [address]- 4590 Sep, [facility] [place] [facility] [address] [id number] [place] [address]- 5302 Mar, [facility] [place] [facility] [address] [id number] [place] [address]- 9634 Mar, [facility] [place] [facility] [address] [id number] [address]- 5397 Jan, [facility] [place] [facility] [address] [id number] [place] [address]- 8725 Jan, [facility] [place] [facility] [address] [id number] [place] [address]- 0134 May, [facility] [place] [facility] [address] [id number] [place] [address]- 4944 Mar, [facility] [place] [facility] [address] [id number] [place] [address]- 5486 Sep, IMMUNIZATIONS No Known Immunizations SOCIAL HISTORY [...]
--- OUTSIDE RECORDS SUMMARY | 2017-12-28 01:46 | XMS REPORT ---
Author Author REBA MCGHEE Organization [facility] Address [address] [place] [address] Care Team Providers Care Graphic Specialist Name Role Phone REBA MCGHEE Unavailable PROBLEMS Type Condition ICD9-CM Code QRC13-BE Code Onset Dates Condition Status SNOMED Code Problem Other chronic gastritis without hemorrhage K29.50 Active 3536963 Problem Allergic rhinitis, unspecified allergic rhinitis trigger, unspecified rhinitis seasonality J30.9 Active 27387051 Problem Other chronic pain G89.29 Active 72202067 ALLERGIES No Information ENCOUNTERS Encounter Location Date Diagnosis [place] [address] [address] 02 May, 2017 [place] [address] [address] Apr, [place] [address] [address]- [address] 09 Apr, 2017 Allergic rhinitis, unspecified allergic rhinitis trigger, unspecified rhinitis seasonality J30.9 [place] [address] [address] [place] [id number] [place] [address] 69789- 0555 02 Apr, 2017 Allergic rhinitis, unspecified allergic rhinitis trigger, unspecified rhinitis seasonality J30.9 [facility] [address] [address]- [address] 15 Apr, 2017 Other chronic gastritis without hemorrhage K29.50 [place] [address] [address]- 6783 14 Apr, 2017 [place] [address] [address]96- 1306 05 Apr, 2017 Allergic rhinitis, unspecified allergic rhinitis trigger, unspecified rhinitis seasonality J30.9 [place] [address] [address]- [address] Apr, [facility] [address] [place] [id number] [place] [address] 061124- 5156 Mar, Allergic rhinitis, unspecified allergic rhinitis trigger, unspecified rhinitis seasonality J30.9 [facility] [address] [place] [id number] [place] [address] 87958- 3556 Mar, [facility] [address] 25794- 3198 Jan, [facility] [address] [place] [id number] [place] [address] 11953- 8651 Jan, [facility] [address] [place] [id number] [place] [address] 26570- 3679 Dec, Allergic rhinitis, unspecified allergic rhinitis trigger, unspecified rhinitis seasonality J30.9 ; Other chronic pain G89.29 ; Pain in left knee M25.562 ; Pain in right knee M25.561 and Low back pain M54.5 [facility] [address] [place] [id number] [place] [address] 49146- 3933 Dec, [facility] [address] [place] [id number] [place] [address] 62899- 6600 Nov, [facility] [id number] [place] [address] 64746- 7409 Nov, [facility] [address] [place] [id number] [place] [address] 70445- 0417 Nov, [facility] [address] [place] [id number] [place] [address] 04450- 0987 Oct, [facility] [address] [place] [id number] [place] [address] 486126- 9017 Sep, [facility] [address] [place] [id number] [place] [address] 15015- 6877 Aug, [facility] [id number] [place] [address] 44056 -8000 Aug, Laceration without foreign body, left lower leg, initial encounter S81.812A [place] [address] [place] [id number] [place] [address] 70293- 7503 Jul, [facility] [address] [place] [id number] [place] [address] 55723- 3343 June, [facility] [address] [place] [id number] [place] [address] 58532 -3526 June, Exposure to strep throat Z20.818 [facility] [address] [place] [id number] [place] [address] 94581- 8856 May, [place] [address] 01090- 2184 Apr, [place] [address] [place] [id number] [place] [address] 20449- 4445 Apr, Diverticulitis of intestine without perforation or abscess without bleeding, unspecified part of intestinal tract K57.92 and Other chronic pain G89.29 [place] [address] [place] [id number] [place] [address] 29705- 9151 Apr, Allergic rhinitis, unspecified allergic rhinitis trigger, unspecified rhinitis seasonality J30.9 [place] [address] [place] [id number] [place] [address] 47672- 2690 Mar, Allergic rhinitis, unspecified allergic rhinitis trigger, unspecified rhinitis seasonality J30.9 [place] [address] [place] [id number] [place] [address] 56380- 2658 Jan, Low back pain M54.5 and Allergic rhinitis, unspecified allergic rhinitis trigger, unspecified rhinitis seasonality J30.9 [place] [address] 26577- 0864 Dec, Allergic rhinitis, unspecified allergic rhinitis trigger, unspecified rhinitis seasonality J30.9 ; Encounter for immunization Z23 ; Low back pain M54.5 ; Other chronic pain G89.29 ; Pain in left knee M25.562 and Pain in right knee M25.561 [place] [address] [facility] [id number] [place] [address]- 9858 14 Nov, 2015 [facility] [address] [place] [id number] [place] [address]- 8826 14 Nov, 2015 [facility] [address] [facility] [id number] [place] [address]- 2025 14 Nov, 2015 [facility] [address] [place] [id number] [place] [address], [place] [address]- 9238 15 Oct, 2015 [facility] [address] [facility] [id number] [place] [address]- 2266 14 Oct, 2015 [facility] [address] [place] [id number] [place] [address], [place] [address]- 6708 14 Oct, 2015 [facility] [address] [place] [address]- 9073 18 Sep, 2015 [facility] [id number] [place] [address]- 5472 Sep, [facility] [address] [place] [address]- 5594 Sep, Adjustment disorder with anxiety F43.22 and Impulse control disorder F63.9 [facility] [address] [place] [address]- 2038 Aug, [facility] [address] [address]- 4086 Jul, [facility] [address] [place] [address]- 8306 Jul, [facility] [address] [place] [address]- 7959 Jul, [facility] [address] [place] [address]- 6632 June, [facility] [address] [place] [address]- 0826 May, [facility] [address] [address]- 8150 Apr, [facility] [address] [address]- 9126 Apr, [facility] [address] [place] [id number] [address]- 6936 Apr, Irritable bowel syndrome with diarrhea K58.0 [facility] [id number] [place] [address] 23817 -7414 Apr, Colitis K52.9 [facility] [id number] [place] [address], [place] [address]- 5694 Mar, [facility] [id number] [place] [address] 16281- 0296 Jan, [facility] [id number] [place] [address] 14152- 5996 Jan, [facility] [address] [address]- 9385 Dec, [facility] [id number] [place] [address] 44856- 3184 Nov, [facility] [address] [address]- 5145 Oct, [facility] [address] [address]- 5810 Sep, [facility] [address] [address]- 3178 Aug, Ankle sprain 845.00 [facility] [address] [address]- 2858 Aug, Diverticulitis large intestine 562.11 [facility] [address] [address]- 5339 Aug, [facility] [address] [address]- 3340 Jul, Irritable bowel syndrome 564.1 [facility] [address] [facility] [id number] [place] [address]- 9929 Jul, Ankle sprain 845.00 [facility] [address] [id number] [place] [address]- 2550 Jul, [facility] [address] [facility] [id number] [address]- 6058 June, [facility] [address] [facility] [id number] [place] [address]- 3040 May, [facility] [address] [facility] [id number] [place] [address]328 May, [facility] [address] 3069 Apr, [facility] [address] [place] [address]- 0481 Apr, [facility] [address] [facility] [id number] [address]- 0895 Apr, [facility] [address] [place] [address]- 8415 Apr, [facility] [address] [place] [id number] [address]- 0865 Apr, [facility] [address] [place] [id number] [address]- 5270 Apr, [facility] [address] [facility] [id number] [address]- 3806 Apr, [facility] [address] [facility] [id number] [address]- 1856 Apr, [facility] [address] [facility] [id number] [place] [address]- 4746 Apr, [facility] [address] [place] [id number] [address]- 8176 14 Nov, 2013 [facility] [place] [facility] [address] [id number] [place] [address]- 0465 14 Nov, 2013 [facility] [place] [facility] [address] [id number] [place] [address]- 5706 Nov, [facility] [place] [facility] [address] [id number] [place] [address]- 4095 Nov, [facility] [place] [facility] [address] [id number] [place] [address]- 8688 Nov, [facility] [place] [facility] [address] [id number] [place] [address]- 3997 Sep, [facility] [place] [facility] [address] [id number] [place] [address]- 5545 Sep, [facility] [place] [facility] [address] [id number] [place] [address]- 7891 Sep, [facility] [place] [facility] [address] [id number] [place] [address]- 8458 Sep, [facility] [place] [facility] [address] [id number] [place] [address]- 6101 Sep, [facility] [place] [facility] [address] [id number] [place] [address]- 1302 Aug, [facility] [place] [facility] [address] [id number] [place] [address]- 2630 Aug, [facility] [place] [facility] [address] [id number] [place] [address]- 9980 Aug, [facility] [place] [facility] [address] [id number] [place] [address]- 7844 Aug, [facility] [place] [facility] [address] [id number] [place] [address]- 8891 Aug, [facility] [place] [facility] [address] [id number] [place] [address]- 8224 Aug, [facility] [place] [facility] [address] [id number] [place] [address]- 8382 Aug, [facility] [address] [id number] [place] [address]- 7830 Aug, [facility] [place] [facility] [address] [id number] [place] [address]- 1488 Aug, [facility] [place] [facility] [address] [id number] [place] [address]- 4707 Aug, [facility] [place] [facility] [address] [id number] [place] [address]- 5917 Aug, [facility] [place] [facility] [address] [id number] [place] [address]- 8293 Apr, [facility] [place] [facility] [address] [id number] [place] [address]- 9339 Apr, [facility] [place] [facility] [address] [id number] [place] [address]- 8658 Apr, [facility] [place] [facility] [address] [id number] [place] [address]- 5456 Apr, [facility] [place] [facility] [address] [id number] [place] [address]- 3950 Oct, [facility] [place] [facility] [address] [id number] [place] [address]- 6265 Sep, [facility] [place] [facility] [address] [id number] [place] [address]- 6251 Sep, [facility] [place] [facility] [address] [id number] [place] [address]- 8159 Aug, [facility] [place] [facility] [address] [id number] [place] [address]- 9791 May, [facility] [place] [facility] [address] [id number] [place] [address]- 8326 Mar, [facility] [place] [facility] [address] [id number] [place] [address]- 8425 Jan, [facility] [place] [facility] [address] [id number] [place] [address]- 0443 Jan, [facility] [place] [facility] [address] [id number] [place] 8697 Jan, [facility] [place] [facility] [address] [id number] [place] [address]- 4886 Jan, [facility] [place] [facility] [address] [id number] [place] [address]- 0860 Jan, [facility] [place] [facility] [address] [id number] [place] 8270 Dec, [facility] [place] [facility] [address] [id number] [place] [address]- 1609 Dec, [facility] [place] [facility] [address] [id number] [place] [address]- 3550 Oct, [facility] [place] [facility] [address] [id number] [place] [address]- 9016 Oct, [facility] [place] [facility] [address] [id number] [place] [address]- 3361 Sep, [facility] [place] [facility] [address] [id number] [place] [address]- 1032 Mar, [facility] [place] [facility] [address] [id number] [place] [address]- 8007 Mar, [facility] [place] [facility] [address] [id number] [place] [address]- 7773 Jan, [facility] [place] [facility] [address] [id number] [place] [address]- 9573 Jan, [facility] [place] [facility] [address] [id number] [place] [address]- 1159 May, [facility] [place] [facility] [address] [id number] [place] [address]- 6242 Mar, [facility] [place] [facility] [address] [id number] [place] [address]- 2166 Sep, IMMUNIZATIONS No Known Immunizations SOCIAL HISTORY Never Assessed REASON FOR VISIT Controlled Med Refill PLAN OF CARE VITAL SIGNS MEDICATIONS Medication Instructions Dosage Frequency Start Date End Date Duration Status Protonix 40 mg Orally Once a day 1 tablet 24h 30 Active Tramadol HCl 50 mg Orally 3 times a day 2 tablets 8h 28 days Active RESULTS No Results [...]
--- OUTSIDE RECORDS SUMMARY | 2017-12-28 01:47 | XMS REPORT ---
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 Snowblower Mechanic Name Role Phone REBA MCGHEE Unavailable PROBLEMS Type Condition ICD9-CM Code QTT13-CC Code Onset Dates Condition Status SNOMED Code Problem Other chronic gastritis without hemorrhage K29.50 Active 9297950 Problem Allergic rhinitis, unspecified allergic rhinitis trigger, unspecified rhinitis seasonality J30.9 Active 81521508 Problem Other chronic pain G89.29 Active [id number] ALLERGIES No Information ENCOUNTERS Encounter Location Date Diagnosis [place] [address] [address] 02 May, 2017 [place] [address] [address]- [address] Apr, [place] [address] [address]- [address]32 09 Apr, 2017 Allergic rhinitis, unspecified allergic rhinitis trigger, unspecified rhinitis seasonality J30.9 [place] [address] [place] [id number] [place] [address] 89282- 0293 02 Apr, 2017 Allergic rhinitis, unspecified allergic rhinitis trigger, unspecified rhinitis seasonality J30.9 [facility] [address] [address]- 9127 15 Apr, 2017 Other chronic gastritis without hemorrhage K29.50 [place] [address] 6[address]- 7035 14 Apr, 2017 [place] [address] 246[address]- 5211 05 Apr, 2017 Allergic rhinitis, unspecified allergic rhinitis trigger, unspecified rhinitis seasonality J30.9 [place] [address] 19136- 3337 Apr, [facility] [address] [place] [id number] [place] [address] 121875- 0836 Mar, Allergic rhinitis, unspecified allergic rhinitis trigger, unspecified rhinitis seasonality J30.9 [facility] [address] [place] [id number] [place] [address] 77058- 2456 Mar, [facility] [address] 66141- 8704 Jan, [facility] [address] [place] [id number] [place] [address] 90654- 4133 Jan, [facility] [address] [place] [id number] [place] [address] 98493- 0695 Dec, Allergic rhinitis, unspecified allergic rhinitis trigger, unspecified rhinitis seasonality J30.9 ; Other chronic pain G89.29 ; Pain in left knee M25.562 ; Pain in right knee M25.561 and Low back pain M54.5 [facility] [address] [place] [id number] [place] [address] 27741- 4595 Dec, [facility] [address] [place] [id number] [place] [address] 91210- 6036 Nov, [facility] [id number] [place] [address] 43408- 4170 Nov, [facility] [address] [place] [id number] [place] [address] 54727- 6539 Nov, [facility] [address] [place] [id number] [place] [address] 76280- 0681 Oct, [facility] [address] [place] [id number] [place] [address] 020078- 8515 Sep, [facility] [address] [place] [id number] [place] [address] 88829- 7206 Aug, [facility] [id number] [place] [address] 34311 -8610 Aug, Laceration without foreign body, left lower leg, initial encounter S81.812A [place] [address] [place] [id number] [place] [address] 01086- 5200 Jul, [facility] [address] [place] [id number] [place] [address] 82135- 8865 June, [facility] [address] [place] [id number] [place] [address] 58615 -9199 June, Exposure to strep throat Z20.818 [facility] [address] [place] [id number] [place] [address] 91411- 0905 May, [place] [address] 16230- 3332 Apr, [place] [address] [place] [id number] [place] [address] 45960- 8782 Apr, Diverticulitis of intestine without perforation or abscess without bleeding, unspecified part of intestinal tract K57.92 and Other chronic pain G89.29 [place] [address] [place] [id number] [place] [address] 61480- 2258 03 Apr, 2016 Allergic rhinitis, unspecified allergic rhinitis trigger, unspecified rhinitis seasonality J30.9 [place] [address] [place] [id number] [place] [address] 98721- 3145 Mar, Allergic rhinitis, unspecified allergic rhinitis trigger, unspecified rhinitis seasonality J30.9 [place] [address] [place] [id number] [place] [address] 11816- 9806 Jan, Low back pain M54.5 and Allergic rhinitis, unspecified allergic rhinitis trigger, unspecified rhinitis seasonality J30.9 [place] [address] 44117- 0608 03 Dec, 2015 Encounter for immunization Z23 ; Allergic rhinitis, unspecified allergic rhinitis trigger, unspecified rhinitis seasonality J30.9 ; Low back pain M54.5 ; Other chronic pain G89.29 ; Pain in left knee M25.562 and Pain in right knee M25.561 [place] [address] [facility] [id number] [place] [address]- 8732 14 Nov, 2015 [facility] [address] [place] [id number] [place] [address]- 4065 14 Nov, 2015 [facility] [address] [facility] [id number] [place] [address]- 5609 14 Nov, 2015 [facility] [address] [place] [id number] [place] [address], [place] [address]- 4221 15 Oct, 2015 [facility] [address] [facility] [id number] [place] [address]- 2750 14 Oct, 2015 [facility] [address] [place] [id number] [place] [address], [place] [address]- 9290 14 Oct, 2015 [facility] [id number] [place] [address]- 5527 18 Sep, 2015 [facility] [id number] [place] [address]- 7390 Sep, [facility] [id number] [place] [address]- 5262 Sep, Adjustment disorder with anxiety F43.22 and Impulse control disorder F63.9 [facility] [id number] [place] [address]- 8702 Aug, [facility] [address] [address]- 4499 Jul, [facility] [id number] [place] [address]- 3195 Jul, [facility] [id number] [place] [address]- 3902 Jul, [facility] [id number] [place] [address]- 7906 June, [facility] [id number] [place] [address]- 5585 May, [facility] [id number] [address]- 9269 Apr, [facility] [address] [address]- 2022 Apr, [facility] [address] [place] [id number] [address]- 9427 Apr, Irritable bowel syndrome with diarrhea K58.0 [facility] [id number] [place] [address] 79183 -1007 Apr, Colitis K52.9 [facility] [id number] [place] [address], [place] [address]- 0946 Mar, [facility] [id number] [place] [address] 77589- 6010 Jan, [facility] [id number] [place] [address] 54858- 9866 Jan, [facility] [address] [address]- 1666 Dec, [facility] [id number] [place] [address] 14477- 0567 Nov, [facility] [address], [place] [address]- 1474 Oct, [facility] [address] [address]- 9892 Sep, [facility] [address], [place] [address]- 3255 Aug, Ankle sprain 845.00 [facility] [address] [address]- 5404 Aug, Diverticulitis large intestine 562.11 [facility] [address] [address]- 8056 Aug, [facility] [address], [place] [address]- 4765 Jul, Irritable bowel syndrome 564.1 [facility] [address] [facility] [id number] [place] [address]- 5104 Jul, Ankle sprain 845.00 [facility] [address] [id number] [place] [address]- 6831 Jul, [facility] [address] [facility] [id number], [place] [address]- 8441 June, [facility] [address] [facility] [id number] [place] [address]- 9839 May, [facility] [address] [facility] [id number] [place]- 7641 May, [facility] [address] 0955 Apr, [facility] [id number] [place] [address]- 5378 Apr, [facility] [address] [facility] [id number], [place] [address]- 2893 Apr, [facility] [id number] [place] [address]- 7116 Apr, [facility] [address] [place] [id number], [place] [address]- 9150 Apr, [facility] [address] [place] [id number] [address]- 3902 Apr, [facility] [address] [facility] [id number], [place] [address]- 6956 Apr, [facility] [address] [facility] [id number], [place] [address]- 5006 Apr, [facility] [address] [facility] [id number], [place] [address]- 2666 Apr, [facility] [address] [place] [id number] [address]- 2088 14 Nov, 2013 [facility] [place] [facility] [address] [id number] [place] [address]- 7439 14 Nov, 2013 [facility] [place] [facility] [address] [id number] [place] [address]- 2060 Nov, [facility] [place] [facility] [address] [id number] [place] [address]- 4359 Nov, [facility] [place] [facility] [address] [id number] [place] [address]- 1156 Nov, [facility] [place] [facility] [address] [id number] [place] [address]- 7372 Sep, [facility] [place] [facility] [address] [id number] [place] [address]- 0776 Sep, [facility] [place] [facility] [address] [id number] [place] [address]- 5594 Sep, [facility] [place] [facility] [address] [id number] [place] [address]- 6345 Sep, [facility] [place] [facility] [address] [id number] [place] [address]- 4176 Sep, [facility] [place] [facility] [address] [id number] [place] [address]- 5979 Aug, [facility] [place] [facility] [address] [id number] [place] [address]- 8223 Aug, [facility] [place] [facility] [address] [id number] [place] [address]- 3705 Aug, [facility] [place] [facility] [address] [id number] [place] [address]- 9364 Aug, [facility] [place] [facility] [address] [id number] [place] [address]- 0977 Aug, [facility] [place] [facility] [address] [id number] [place] [address]- 3059 Aug, [facility] [place] [facility] [address] [id number] [place] [address]- 3905 Aug, [facility] [address] [id number] [place] [address]- 7049 Aug, [facility] [place] [facility] [address] [id number] [place] [address]- 5115 Aug, [facility] [place] [facility] [address] [id number] [place] [address]- 8414 Aug, [facility] [place] [facility] [address] [id number] [place] [address]- 1864 Aug, [facility] [place] [facility] [address] [id number] [place] [address]- 3361 Apr, [facility] [place] [facility] [address] [id number] [place] [address]- 7307 Apr, [facility] [place] [facility] [address] [id number] [place] [address]- 1350 Apr, [facility] [place] [facility] [address] [id number] [place] [address]- 0685 Apr, [facility] [place] [facility] [address] [id number] [place] [address]- 4881 Oct, [facility] [place] [facility] [address] [id number] [place] [address]- 5323 Sep, [facility] [place] [facility] [address] [id number] [place] [address]- 1629 Sep, [facility] [place] [facility] [address] [id number] [place] [address]- 3195 Aug, [facility] [place] [facility] [address] [id number] [place] [address]- 8915 May, [facility] [place] [facility] [address] [id number] [place] [address]- 7046 Mar, [facility] [place] [facility] [address] [id number] [place] [address]- 5483 Jan, [facility] [place] [facility] [address] [id number] [place] [address]- 8657 Jan, [facility] [place] [facility] [address] [id number] [place] 3730 Jan, [facility] [place] [facility] [address] [id number] [place] [address]- 0849 Jan, [facility] [place] [facility] [address] [id number] [place] [address]- 0575 Jan, [facility] [place] [facility] [address] [id number] [place] 5272 Dec, [facility] [place] [facility] [address] [id number] [place] [address]- 8577 Dec, [facility] [place] [facility] [address] [id number] [place] [address]- 8454 Oct, [facility] [place] [facility] [address] [id number] [place] [address]- 3488 Oct, [facility] [place] [facility] [address] [id number] [place] [address]- 1103 Sep, [facility] [place] [facility] [address] [id number] [place] [address]- 4976 Mar, [facility] [place] [facility] [address] [id number] [place] [address]- 4254 Mar, [facility] [place] [facility] [address] [id number], [place] [address]- 6401 Jan, [facility] [place] [facility] [address] [id number] [place] [address]- 3148 Jan, [facility] [place] [facility] [address] [id number] [place] [address]- 9645 May, [facility] [place] [facility] [address] [id number], [place] [address]- 1672 Mar, [facility] [place] [facility] [address] [id number], [place] [address]- 2226 Sep, IMMUNIZATIONS No Known Immunizations SOCIAL HISTORY Never Assessed REASON FOR VISIT Controlled Refill Request PLAN OF CARE VITAL SIGNS MEDICATIONS Medication [...]
--- OUTSIDE RECORDS SUMMARY | 2017-12-28 01:47 | XMS REPORT ---
Author Author REBA MCGHEE Organization [facility] [place] Address [address] [place] [address] Care Team Providers Care Pharmacy Data Analyst Name Role Phone REBA MCGHEE Unavailable PROBLEMS Type Condition ICD9-CM Code IWO24-HQ Code Onset Dates Condition Status SNOMED Code Problem Other chronic gastritis without hemorrhage K29.50 Active 7067896 Problem Allergic rhinitis, unspecified allergic rhinitis trigger, unspecified rhinitis seasonality J30.9 Active 83267067 Problem Other chronic pain G89.29 Active 13144094 ALLERGIES No Information ENCOUNTERS Encounter Location Date Diagnosis [place] [address] [address] 02 May, 2017 [place] [address] [address] Apr, [place] [address] [address] Apr, Allergic rhinitis, unspecified allergic rhinitis trigger, unspecified rhinitis seasonality J30.9 [place] [address] [address] [place] [id number] [place] [address]17- 4210 02 Apr, 2017 Allergic rhinitis, unspecified allergic rhinitis trigger, unspecified rhinitis seasonality J30.9 [facility] [place] [address] [address]- [address] 15 Apr, 2017 Other chronic gastritis without hemorrhage K29.50 [place] [address] [address]- [address] 14 Apr, 2017 [place] [address] 28575- 1022 05 Apr, 2017 Allergic rhinitis, unspecified allergic rhinitis trigger, unspecified rhinitis seasonality J30.9 [place] [address] [address]- [address]31 Apr, [facility] [place] [address] [place] [id number] [place] [address] 547806- 5176 Mar, Allergic rhinitis, unspecified allergic rhinitis trigger, unspecified rhinitis seasonality J30.9 [facility] [place] [address] [place] [id number] [place] [address] 18566- 6036 Mar, [facility] [place] [address] [address]- 0143 Jan, [facility] [place] [address] [place] [id number] [place] [address] 38495- 5289 Jan, [facility] [place] [address] [place] [id number] [place] [address] 94716- 3972 Dec, Allergic rhinitis, unspecified allergic rhinitis trigger, unspecified rhinitis seasonality J30.9 ; Other chronic pain G89.29 ; Pain in left knee M25.562 ; Pain in right knee M25.561 and Low back pain M54.5 [facility] [place] [address] [place] [id number] [place] [address] 68576- 8421 Dec, [facility] [place] [address] [place] [id number] [place] [address] 39197- 4990 Nov, [facility] [place] [id number] [place] [address] 11000- 3243 Nov, [facility] [place] [address] [place] [id number] [place] [address] 47923- 1592 Nov, [facility] [place] [address] [place] [id number] [place] [address] 22384- 6012 Oct, [facility] [place] [address] [place] [id number] [place] [address] 932928- 8508 Sep, [facility] [place] [address] [place] [id number] [place] [address] 06579- 5741 Aug, [facility] [id number] [place] [address] 01289 -2626 Aug, Laceration without foreign body, left lower leg, initial encounter S81.812A [place] [address] [place] [id number] [place] [address] 94633- 0651 Jul, [facility] [place] [address] [place] [id number] [place] [address] 12304- 0751 June, [facility] [address] [place] [id number] [place] [address] 34806 -1547 June, Exposure to strep throat Z20.818 [facility] [place] [address] [place] [id number] [place] [address] 71717- 3673 May, [place] [address] 50301- 0885 Apr, [place] [address] [place] [id number] [place] [address] 02673- 8711 Apr, Diverticulitis of intestine without perforation or abscess without bleeding, unspecified part of intestinal tract K57.92 and Other chronic pain G89.29 [place] [address] [place] [id number] [place] [address] 70625- 3283 Apr, Allergic rhinitis, unspecified allergic rhinitis trigger, unspecified rhinitis seasonality J30.9 [place] [address] [place] [id number] [place] [address] 53599- 2833 Mar, Allergic rhinitis, unspecified allergic rhinitis trigger, unspecified rhinitis seasonality J30.9 [place] [address] [place] [id number] [place] [address] 08820- 6776 Jan, Low back pain M54.5 and Allergic rhinitis, unspecified allergic rhinitis trigger, unspecified rhinitis seasonality J30.9 [place] [address] 72827- 3922 Dec, Allergic rhinitis, unspecified allergic rhinitis trigger, unspecified rhinitis seasonality J30.9 ; Encounter for immunization Z23 ; Low back pain M54.5 ; Other chronic pain G89.29 ; Pain in left knee M25.562 and Pain in right knee M25.561 [place] [address] [address] [facility] [id number] [place] [address]- 2664 14 Nov, 2015 [facility] [address] [place] [id number] [place] [address]- 6783 14 Nov, 2015 [facility] [address] [facility] [id number] [place] [address]- 1761 14 Nov, 2015 [facility] [address] [place] [id number] [place] [address], [place] [address]- 4862 15 Oct, 2015 [facility] [address] [facility] [id number] [place] [address]- 9630 14 Oct, 2015 [facility] [address] [place] [id number] [place] [address], [place] [address]- 8561 14 Oct, 2015 [facility] [id number] [place] [address]- 0099 18 Sep, 2015 [facility] [id number] [place] [address]- 8476 Sep, [facility] [id number] [place] [address]- 5163 Sep, Adjustment disorder with anxiety F43.22 and Impulse control disorder F63.9 [facility] [place] [id number] [place] [address]- 7794 Aug, [facility] [place] [id number] [address]- 6819 Jul, [facility] [id number] [place] [address]- 6753 Jul, [facility] [id number] [place] [address]- 2295 Jul, [facility] [id number] [place] [address]- 4815 June, [facility] [id number] [place] [address]- 4961 May, [facility] [id number] [address]- 2097 Apr, [facility] [place] [address] [address]- 9846 Apr, [facility] [place] [address] [place] [id number] [address]- 5445 Apr, Irritable bowel syndrome with diarrhea K58.0 [facility] [id number] [place] [address] 93514 -7065 Apr, Colitis K52.9 [facility] [place] [id number] [place] [address], [place] [address]- 4660 Mar, [facility] [place] [id number] [place] [address] 00390- 2632 Jan, [facility] [place] [id number] [place] [address] 07206- 4357 Jan, [facility] [place] [address] [address]- 5697 Dec, [facility] [place] [id number] [place] [address] 47926- 4702 Nov, [facility] [place] [address] [address]- 1099 Oct, [facility] [place] [address] [address]- 8253 Sep, [facility] [place] [address] [address]- 1889 Aug, Ankle sprain 845.00 [facility] [address] [address]- 3714 Aug, Diverticulitis large intestine 562.11 [facility] [place] [address] [address]- 1027 Aug, [facility] [place] [address] [address]- 4732 Jul, Irritable bowel syndrome 564.1 [facility] [address] [facility] [address] [id number] [place] [address]- 3130 Jul, Ankle sprain 845.00 [facility] [address] [id number] [place] [address]- 5092 Jul, [facility] [address] [facility] [address] [id number] [address]- 6933 June, [facility] [address] [facility] [address] [id number] [place] [address]- 5170 May, [facility] [address] [facility] [address] [id number] [place] [address] May, [facility] [address] 3204 Apr, [facility] [id number] [place] [address]- 5337 Apr, [facility] [address] [facility] [address] [id number] [address]- 2215 Apr, [facility] [address] [place] [address]- 9973 Apr, [facility] [address] [place] [id number] [address]- 7006 Apr, [facility] [address] [place] [id number] [address]- 8322 Apr, [facility] [address] [facility] [address] [id number] [address]- 3356 Apr, [facility] [address] [facility] [address] [id number] [address]- 1876 Apr, [facility] [address] [facility] [address] [id number] [address]- 2326 Apr, [facility] [address] [place] [id number] [address]- 4820 14 Nov, 2013 [facility] [place] [facility] [address] [id number] [place] [address]- 9479 14 Nov, 2013 [facility] [place] [facility] [address] [id number] [place] [address]- 7931 Nov, [facility] [place] [facility] [address] [id number] [place] [address]- 5653 Nov, [facility] [place] [facility] [address] [id number] [place] [address]- 1366 Nov, [facility] [place] [facility] [address] [id number] [place] [address]- 0468 Sep, [facility] [place] [facility] [address] [id number] [place] [address]- 3480 Sep, [facility] [place] [facility] [address] [id number] [place] [address]- 5767 Sep, [facility] [place] [facility] [address] [id number] [place] [address]- 4378 Sep, [facility] [place] [facility] [address] [id number] [place] [address]- 0487 Sep, [facility] [place] [facility] [address] [id number] [place] [address]- 1776 Aug, [facility] [place] [facility] [address] [id number] [place] [address]- 0870 Aug, [facility] [place] [facility] [address] [id number] [place] [address]- 5544 Aug, [facility] [place] [facility] [address] [id number] [place] [address]- 8792 Aug, [facility] [place] [facility] [address] [id number] [place] [address]- 6849 Aug, [facility] [place] [facility] [address] [id number] [place] [address]- 3761 Aug, [facility] [place] [facility] [address] [id number] [place] [address]- 9639 Aug, [facility] [address] [id number] [place] [address]- 6144 Aug, [facility] [place] [facility] [address] [id number] [place] [address]- 5198 Aug, [facility] [place] [facility] [address] [id number] [place] [address]- 5334 Aug, [facility] [place] [facility] [address] [id number] [place] [address]- 6703 Aug, [facility] [place] [facility] [address] [id number] [place] [address]- 3289 Apr, [facility] [place] [facility] [address] [id number] [place] [address]- 4752 Apr, [facility] [place] [facility] [address] [id number] [place] [address]- 0981 Apr, [facility] [place] [facility] [address] [id number] [place] [address]- 5215 Apr, [facility] [place] [facility] [address] [id number] [place] [address]- 8111 Oct, [facility] [place] [facility] [address] [id number] [place] [address]- 2797 Sep, [facility] [place] [facility] [address] [id number] [place] [address]- 6598 Sep, [facility] [place] [facility] [address] [id number] [place] [address]- 8389 Aug, [facility] [place] [facility] [address] [id number] [place] [address]- 0742 May, [facility] [place] [facility] [address] [id number] [place] [address]- 4236 Mar, [facility] [place] [facility] [address] [id number] [place] [address]- 1365 Jan, [facility] [place] [facility] [address] [id number] [place] [address]- 4766 Jan, [facility] [place] [facility] [address] [id number] [place] 6393 Jan, [facility] [place] [facility] [address] [id number] [place] [address]- 7817 Jan, [facility] [place] [facility] [address] [id number] [place] [address]- 2033 Jan, [facility] [place] [facility] [address] [id number] [place] 4052 Dec, [facility] [place] [facility] [address] [id number] [place] [address]- 3750 Dec, [facility] [place] [facility] [address] [id number] [place] [address]- 4874 Oct, [facility] [place] [facility] [address] [id number] [place] [address]- 1548 Oct, [facility] [place] [facility] [address] [id number] [place] [address]- 8686 Sep, [facility] [place] [facility] [address] [id number] [place] [address]- 1490 Mar, [facility] [place] [facility] [address] [id number] [place] [address]- 8740 Mar, [facility] [place] [facility] [address] [id number] [address]- 4131 Jan, [facility] [place] [facility] [address] [id number] [place] [address]- 4934 Jan, [facility] [place] [facility] [address] [id number] [place] [address]- 0563 May, [facility] [place] [facility] [address] [id number] [address]- 8100 Mar, [facility] [place] [facility] [address] [id number], [place] [address]- 4686 Sep, IMMUNIZATIONS No Known Immunizations SOCIAL HISTORY Never Assessed REASON FOR VISIT Requests return call PLAN OF CARE VITAL SIGNS MEDICATIONS Unknown [...]
--- OUTSIDE RECORDS SUMMARY | 2017-12-28 01:47 | XMS REPORT ---
Author Author REBA MCGHEE Organization [facility] Address [address] [place] [address] Care Team Providers Care Field Research Assistant Name Role Phone REBA MCGHEE Unavailable PROBLEMS Type Condition ICD9-CM Code ZNB57-SX Code Onset Dates Condition Status SNOMED Code Problem Other chronic gastritis without hemorrhage K29.50 Active 6824855 Problem Allergic rhinitis, unspecified allergic rhinitis trigger, unspecified rhinitis seasonality J30.9 Active 98259682 Problem Other chronic pain G89.29 Active [id number] ALLERGIES No Information ENCOUNTERS Encounter Location Date Diagnosis [place] [address] [address] 02 May, 2017 [place] [address] [address]- [address] Apr, [place] [address] [address]- [address] 09 Apr, 2017 Allergic rhinitis, unspecified allergic rhinitis trigger, unspecified rhinitis seasonality J30.9 [place] [address] [place] [id number] [place] [address] 29661- 8629 02 Apr, 2017 Allergic rhinitis, unspecified allergic rhinitis trigger, unspecified rhinitis seasonality J30.9 [facility] [address] [address]- [address] 15 Apr, 2017 Other chronic gastritis without hemorrhage K29.50 [place] [address] [address]- [address] 14 Apr, 2017 [place] [address] 42910- 2324 05 Apr, 2017 Allergic rhinitis, unspecified allergic rhinitis trigger, unspecified rhinitis seasonality J30.9 [place] [address] [address]16- 0882 Apr, [facility] [address] [place] [id number] [place] [address] 809098- 0986 Mar, Allergic rhinitis, unspecified allergic rhinitis trigger, unspecified rhinitis seasonality J30.9 [facility] [address] [place] [id number] [place] [address] 43616- 8076 Mar, [facility] [address] 8[address]32- 7036 Jan, [facility] [address] [place] [id number] [place] [address] 88018- 0850 Jan, [facility] [address] [place] [id number] [place] [address] 44751- 6678 Dec, Allergic rhinitis, unspecified allergic rhinitis trigger, unspecified rhinitis seasonality J30.9 ; Other chronic pain G89.29 ; Pain in left knee M25.562 ; Pain in right knee M25.561 and Low back pain M54.5 [facility] [address] [place] [id number] [place] [address] 61814- 7914 Dec, [facility] [address] [place] [id number] [place] [address] 47241- 6116 Nov, [facility] [id number] [place] [address] 36776- 2476 Nov, [facility] [address] [place] [id number] [place] [address] 57192- 1336 Nov, [facility] [address] [place] [id number] [place] [address] 43679- 2983 Oct, [facility] [address] [place] [id number] [place] [address] 740175- 6434 Sep, [facility] [address] [place] [id number] [place] [address] 30443- 2469 Aug, [facility] [id number] [place] [address] 41304 -4237 Aug, Laceration without foreign body, left lower leg, initial encounter S81.812A [place] [address] [place] [id number] [place] [address] 02305- 2430 Jul, [facility] [address] [place] [id number] [place] [address] 39809- 9718 June, [facility] [address] [place] [id number] [place] [address] 60910 -5731 June, Exposure to strep throat Z20.818 [facility] [address] [place] [id number] [place] [address] 20607- 8864 May, [place] [address] 88871- 7953 Apr, [place] [address] [place] [id number] [place] [address] 08034- 2063 Apr, Diverticulitis of intestine without perforation or abscess without bleeding, unspecified part of intestinal tract K57.92 and Other chronic pain G89.29 [place] [address] [place] [id number] [place] [address] 35588- 6053 03 Apr, 2016 Allergic rhinitis, unspecified allergic rhinitis trigger, unspecified rhinitis seasonality J30.9 [place] [address] [place] [id number] [place] [address] 83987- 5414 Mar, Allergic rhinitis, unspecified allergic rhinitis trigger, unspecified rhinitis seasonality J30.9 [place] [address] [place] [id number] [place] [address] 78953- 2672 Jan, Low back pain M54.5 and Allergic rhinitis, unspecified allergic rhinitis trigger, unspecified rhinitis seasonality J30.9 [place] [address] 79453- 4188 03 Dec, 2015 Encounter for immunization Z23 ; Allergic rhinitis, unspecified allergic rhinitis trigger, unspecified rhinitis seasonality J30.9 ; Low back pain M54.5 ; Other chronic pain G89.29 ; Pain in left knee M25.562 and Pain in right knee M25.561 [place] [address] [facility] [id number] [place] [address]- 0978 14 Nov, 2015 [facility] [address] [place] [id number] [place] [address]- 3248 14 Nov, 2015 [facility] [address] [facility] [id number] [place] [address]- 5474 14 Nov, 2015 [facility] [address] [place] [id number] [place] [address], [place] [address]- 1911 15 Oct, 2015 [facility] [address] [facility] [id number] [place] [address]- 1701 14 Oct, 2015 [facility] [address] [place] [id number] [place] [address], [place] [address]- 2666 14 Oct, 2015 [facility] [address] [place] [address]- 5640 18 Sep, 2015 [facility] [id number] [place] [address]- 4774 Sep, [facility] [address] [place] [address]- 1586 Sep, Adjustment disorder with anxiety F43.22 and Impulse control disorder F63.9 [facility] [address] [place] [address]- 8586 Aug, [facility] [id number] [address]- 8892 Jul, [facility] [id number] [place] [address]- 6360 Jul, [facility] [address] [place] [address]- 7485 Jul, [facility] [address] [place] [address]- 5010 June, [facility] [address] [place] [address]- 1347 May, [facility] [id number] [address]- 1630 Apr, [facility] [id number] [address]- 1032 Apr, [facility] [address] [place] [id number] [address]- 0449 Apr, Irritable bowel syndrome with diarrhea K58.0 [facility] [id number] [place] [address] 41817 -1551 Apr, Colitis K52.9 [facility] [id number] [place] [address], [place] [address]- 0619 Mar, [facility] [id number] [place] [address] 84482- 8813 Jan, [facility] [id number] [place] [address] 46251- 4372 Jan, [facility] [id number] [address]- 3281 Dec, [facility] [id number] [place] [address] 06603- 4788 Nov, [facility] [id number] [address]- 0674 Oct, [facility] [id number] [address]- 2945 Sep, [facility] [address] [address]- 3699 Aug, Ankle sprain 845.00 [facility] [address] [address]- 6781 Aug, Diverticulitis large intestine 562.11 [facility] [address] [address]- 6778 Aug, [facility] [id number] [address]- 0644 Jul, Irritable bowel syndrome 564.1 [facility] [address] [facility] [id number] [place] [address]- 0039 Jul, Ankle sprain 845.00 [facility] [address] [id number] [place] [address]- 2253 Jul, [facility] [address] [facility] [id number] [address]- 0108 June, [facility] [address] [facility] [id number] [place] [address]- 3084 May, [facility] [address] [facility] [id number] [place]- 3530 May, [facility] [address] 1300 Apr, [facility] [id number] [place] [address]- 1709 Apr, [facility] [address] [facility] [id number] [address]- 2659 Apr, [facility] [address] [place] [address]- 0300 Apr, [facility] [address] [place] [id number] [address]- 1680 Apr, [facility] [address] [place] [id number] [address]- 3507 Apr, [facility] [address] [facility] [id number] [address]- 7576 Apr, [facility] [address] [facility] [id number] [address]- 8446 Apr, [facility] [address] [facility] [id number] [address]- 3566 Apr, [facility] [address] [place] [id number] [address]- 2679 14 Nov, 2013 [facility] [place] [facility] [address] [id number] [place] [address]- 4346 14 Nov, 2013 [facility] [place] [facility] [address] [id number] [place] [address]- 5803 Nov, [facility] [place] [facility] [address] [id number] [place] [address]- 6350 Nov, [facility] [place] [facility] [address] [id number] [place] [address]- 3446 Nov, [facility] [place] [facility] [address] [id number] [place] [address]- 8023 Sep, [facility] [place] [facility] [address] [id number] [place] [address]- 5398 Sep, [facility] [place] [facility] [address] [id number] [place] [address]- 4065 Sep, [facility] [place] [facility] [address] [id number] [place] [address]- 4299 Sep, [facility] [place] [facility] [address] [id number] [place] [address]- 4134 Sep, [facility] [place] [facility] [address] [id number] [place] [address]- 8737 Aug, [facility] [place] [facility] [address] [id number] [place] [address]- 1179 Aug, [facility] [place] [facility] [address] [id number] [place] [address]- 0285 Aug, [facility] [place] [facility] [address] [id number] [place] [address]- 8501 Aug, [facility] [place] [facility] [address] [id number] [place] [address]- 3862 Aug, [facility] [place] [facility] [address] [id number] [place] [address]- 0087 Aug, [facility] [place] [facility] [address] [id number] [place] [address]- 2777 Aug, [facility] [address] [id number] [place] [address]- 8810 Aug, [facility] [place] [facility] [address] [id number] [place] [address]- 1409 Aug, [facility] [place] [facility] [address] [id number] [place] [address]- 6573 Aug, [facility] [place] [facility] [address] [id number] [place] [address]- 6152 Aug, [facility] [place] [facility] [address] [id number] [place] [address]- 0677 Apr, [facility] [place] [facility] [address] [id number] [place] [address]- 1411 Apr, [facility] [place] [facility] [address] [id number] [place] [address]- 7141 Apr, [facility] [place] [facility] [address] [id number] [place] [address]- 3825 Apr, [facility] [place] [facility] [address] [id number] [place] [address]- 6994 Oct, [facility] [place] [facility] [address] [id number] [place] [address]- 8013 Sep, [facility] [place] [facility] [address] [id number] [place] [address]- 9679 Sep, [facility] [place] [facility] [address] [id number] [place] [address]- 5042 Aug, [facility] [place] [facility] [address] [id number] [place] [address]- 7548 May, [facility] [place] [facility] [address] [id number] [place] [address]- 8636 Mar, [facility] [place] [facility] [address] [id number] [place] [address]- 4504 Jan, [facility] [place] [facility] [address] [id number] [place] [address]- 3888 Jan, [facility] [place] [facility] [address] [id number] [place] 6428 Jan, [facility] [place] [facility] [address] [id number] [place] [address]- 6436 Jan, [facility] [place] [facility] [address] [id number] [place] [address]- 6300 Jan, [facility] [place] [facility] [address] [id number] [place] [address] Dec, [facility] [place] [facility] [address] [id number] [place] [address]- 7665 Dec, [facility] [place] [facility] [address] [id number] [place] [address]- 0733 Oct, [facility] [place] [facility] [address] [id number] [place] [address]- 5627 Oct, [facility] [place] [facility] [address] [id number] [place] [address]- 3593 Sep, [facility] [place] [facility] [address] [id number] [place] [address]- 1030 Mar, [facility] [place] [facility] [address] [id number] [place] [address]- 8990 Mar, [facility] [place] [facility] [address] [id number] [address]- 9824 Jan, [facility] [place] [facility] [address] [id number] [place] [address]- 9119 Jan, [facility] [place] [facility] [address] [id number] [place] [address]- 6656 May, [facility] [place] [facility] [address] [id number] [address]- 6249 Mar, [facility] [place] [facility] [address] [id number] [place] [address]- 4116 Sep, IMMUNIZATIONS No Known Immunizations SOCIAL HISTORY [...]
--- OUTSIDE RECORDS SUMMARY | 2017-12-28 01:48 | XMS REPORT ---
Author Author REBA MCGHEE Organization [facility] Address [address] [place] [address] Care Team Providers Care Circulation Director Name Role Phone REBA MCGHEE Unavailable PROBLEMS Type Condition ICD9-CM Code EVY14-HU Code Onset Dates Condition Status SNOMED Code Problem Other chronic gastritis without hemorrhage K29.50 Active 8157796 Problem Allergic rhinitis, unspecified allergic rhinitis trigger, unspecified rhinitis seasonality J30.9 Active 96265410 Problem Other chronic pain G89.29 Active 24666342 ALLERGIES No Information ENCOUNTERS Encounter Location Date Diagnosis [place] [address] [address] Apr, [place] [address] [address] Apr, Allergic rhinitis, unspecified allergic rhinitis trigger, unspecified rhinitis seasonality J30.9 [place] [address]- [address] 02 Apr, 2017 Allergic rhinitis, unspecified allergic rhinitis trigger, unspecified rhinitis seasonality J30.9 [place] [address] [address] [place] [id number] [place] [address] 58662- 3856 15 Apr, 2017 Other chronic gastritis without hemorrhage K29.50 [facility] [place] [address] [address]- 8254 14 Apr, 2017 [facility] [address] [address]- 2318 05 Apr, 2017 Allergic rhinitis, unspecified allergic rhinitis trigger, unspecified rhinitis seasonality J30.9 [place] [address] [address]- 1355 Apr, [facility] [place] [address] [address]- [address] Mar, Allergic rhinitis, unspecified allergic rhinitis trigger, unspecified rhinitis seasonality J30.9 [facility] [address] [place] [id number] [place] [address] 16387- 9500 Mar, [facility] [place] [address] [place] [id number] [place] [address] 10024- 3992 Jan, [facility] [place] [address] [address]- 4[address] Jan, [facility] [place] [address] [place] [id number] [place] [address] 84749- 7753 Dec, Allergic rhinitis, unspecified allergic rhinitis trigger, unspecified rhinitis seasonality J30.9 ; Other chronic pain G89.29 ; Pain in left knee M25.562 ; Pain in right knee M25.561 and Low back pain M54.5 [facility] [place] [address] [place] [id number] [place] [address] 98126- 7402 Dec, [facility] [place] [address] [place] [id number] [place] [address] 16390- 4238 Nov, [facility] [place] [address] [place] [id number] [place] [address] 26751- 4451 Nov, [facility] [place] [address] [place] [id number] [place] [address] 75760- 3571 Nov, [facility] [place] [address] [place] [id number] [place] [address] 06462- 3070 Oct, [facility] [place] [address] [place] [id number] [place] [address] 92944- 0666 Sep, [facility] [place] [address] [place] [id number] [place] [address] 37047- 2346 Aug, [facility] [address] [place] [id number] [place] [address] 79921 -6843 Aug, Laceration without foreign body, left lower leg, initial encounter S81.812A [facility] [place] [address] [place] [address] 6807 Jul, [facility] [place] [address] [place] [id number] [place] [address] 32039- 8462 June, [facility] [address] [place] [id number] [place] [address] June, Exposure to strep throat Z20.818 [facility] [place] [address] 39287- 6277 May, [facility] [place] [address] 61322- 0253 Apr, [place] [address] 67876- 9853 Apr, Diverticulitis of intestine without perforation or abscess without bleeding, unspecified part of intestinal tract K57.92 and Other chronic pain G89.29 [place] [address] 88421- 5139 Apr, Allergic rhinitis, unspecified allergic rhinitis trigger, unspecified rhinitis seasonality J30.9 [place] [address] 99654- 9536 Mar, Allergic rhinitis, unspecified allergic rhinitis trigger, unspecified rhinitis seasonality J30.9 [place] [address] [place] [id number] [place] [address] 46466- 0290 Jan, Low back pain M54.5 and Allergic rhinitis, unspecified allergic rhinitis trigger, unspecified rhinitis seasonality J30.9 [place] [address] [place] [id number] [place] [address] 33043- 2007 Dec, Encounter for immunization Z23 ; Allergic rhinitis, unspecified allergic rhinitis trigger, unspecified rhinitis seasonality J30.9 ; Low back pain M54.5 ; Other chronic pain G89.29 ; Pain in left knee M25.562 and Pain in right knee M25.561 [place] [address] 62510- 3085 Nov, [place] [address] [facility] [id number] [place] [address]- 7570 14 Nov, 2015 [facility] [address] [place] [address]- 7133 14 Nov, 2015 [facility] [address] [place] [id number] [place] [address]- 0846 15 Oct, 2015 [facility] [id number] [place] [address], [place] [address]- 7069 14 Oct, 2015 [facility] [address] [facility] [id number] [place] [address]- 8354 14 Oct, 2015 [facility] [id number] [place] [address], [place] [address]- 8646 18 Sep, 2015 [facility] [address] [place] [address]- 6260 Sep, [facility] [address] [place] [id number] [place] [address], [place] [address]- 1410 Sep, Adjustment disorder with anxiety F43.22 and Impulse control disorder F63.9 [facility] [address] [place] [address]- 4503 Aug, [facility] [id number] [place] [address]- 3556 Jul, [facility] [place] [address] [address]- 1385 Jul, [facility] [id number] [place] [address]- 8486 Jul, [facility] [id number] [place] [address]- 8041 June, [facility] [id number] [place] [address]- 3615 May, [facility] [id number] [place] [address]- 1653 Apr, [facility] [address] [address]- 1773 Apr, [facility] [address] [place] [address] 45068- 3355 Apr, Irritable bowel syndrome with diarrhea K58.0 [facility] [address] [address] Apr, Colitis K52.9 [facility] [address] [place] [address] 83007- 6178 Mar, [facility] [place] [address] [place] [address] 53762- 8288 Jan, [facility] [place] [address] [place] [address] 70459- 5770 Jan, [facility] [place] [address] [place] [address] 50848- 5540 Dec, [facility] [place] [address] [place] [address] 85060- 9763 Nov, [facility] [place] [address] [place] [address] 83973- 4037 Oct, [facility] [place] [address] [address]- 7262 Sep, [facility] [address], [place] [address]- 8127 Aug, Ankle sprain 845.00 [facility] [address] [address]- 6730 Aug, Diverticulitis large intestine 562.11 [facility] [address] [place] [id number] [place] [address] 56870- 0493 Aug, [facility] [address] [address]- 7867 Jul, Irritable bowel syndrome 564.1 [facility] [address] [place] [id number] [place] [address] 64658- 0310 Jul, Ankle sprain 845.00 [facility] [address] [id number] [place] [address]- 2252 Jul, [facility] [place] [facility] [address] [id number] [place] [address]- 0026 June, [facility] [address] [id number] [place] [address]- 3882 May, [facility] [place] [facility] [address] [id number] [place] [address]- 7227 May, [facility] [address] [facility] [id number] [place] [address]- 3523 Apr, [facility] [place] [facility] [address] [place] [id number] [place] [address]- 2307 Apr, [facility] [address] [place] [address]- 4268 Apr, [facility] [address] [place] [id number] [address]- 7467 Apr, [facility] [address] [place] [address]- 7503 Apr, [facility] [address] [place] [id number] [address]200 Apr, [facility] [place] [facility] [address] [place] [id number] [address]- 2876 Apr, [facility] [address] [facility] [id number], [place] [address]- 5296 Apr, [facility] [place] [facility] [address] [facility] [id number][place] [address]- 7566 Apr, [facility] [place] [facility] [address] [facility] [id number][place] [address]- 5876 Nov, [facility] [place] [facility] [address] [facility] [id number], [place] [address]- 1637 Nov, [facility] [place] [facility] [address] [id number] [place] [address]- 3308 Nov, [facility] [place] [facility] [address] [id number] [place] [address]- 7879 Nov, [facility] [place] [facility] [address] [id number] [place] [address]- 8112 Nov, [facility] [place] [facility] [address] [id number] [place] [address]- 2663 Sep, [facility] [place] [facility] [address] [id number] [place] [address]- 2127 Sep, [facility] [place] [facility] [address] [id number] [place] [address]- 1434 Sep, [facility] [place] [facility] [address] [id number] [place] [address]- 4691 Sep, [facility] [place] [facility] [address] [id number] [place] [address]- 2799 Sep, [facility] [place] [facility] [address] [id number] [place] [address]- 7083 Aug, [facility] [place] [facility] [address] [id number] [place] [address]- 3082 Aug, [facility] [place] [facility] [address] [id number] [place] [address]- 7541 Aug, [facility] [place] [facility] [address] [id number] [place] [address]- 4248 Aug, [facility] [place] [facility] [address] [id number] [place] [address]- 7284 Aug, [facility] [place] [facility] [address] [id number] [place] [address]- 8726 Aug, [facility] [place] [facility] [address] [id number] [place] [address]- 5749 Aug, [facility] [place] [facility] [address] [id number] [place] [address]- 7208 Aug, [facility] [address] [id number] [place] [address]- 0763 Aug, [facility] [place] [facility] [address] [id number] [place] [address]- 7446 Aug, [facility] [place] [facility] [address] [id number] [place] [address]- 8883 Aug, [facility] [place] [facility] [address] [id number] [place] [address]- 3636 Apr, [facility] [place] [facility] [address] [id number] [place] [address]- 0977 Apr, [facility] [place] [facility] [address] [id number] [place] [address]- 4137 Apr, [facility] [place] [facility] [address] [id number] [place] [address]- 9851 Apr, [facility] [place] [facility] [address] [id number] [place] [address]- 0625 Oct, [facility] [place] [facility] [address] [id number] [place] [address]- 9506 Sep, [facility] [place] [facility] [address] [id number] [place] [address]- 2338 Sep, [facility] [place] [facility] [address] [id number] [place] [address]- 4553 Aug, [facility] [place] [facility] [address] [id number] [place] [address]- 8440 May, [facility] [place] [facility] [address] [id number] [place] [address]- 3710 Mar, [facility] [place] [facility] [address] [id number] [place] [address]- 6111 Jan, [facility] [place] [facility] [address] [id number] [place] [address]- 1358 Jan, [facility] [address] [facility] [id number] [place] [address]- 8158 Jan, [facility] [address] [facility] [id number] [place] [address]- 1956 Jan, [facility] [address] [facility] [id number] [place] [address]- 1216 Jan, [facility] [address] [id number] [place] [address]- 0386 Dec, [facility] [address] [id number] [place] [address]- 2152 Dec, [facility] [address] [facility] [id number] [place] 6098 Oct, [facility] [address] [facility] [id number] [place] 9908 Oct, [facility] [address] [facility] [id number], [place] [address]- 1609 Sep, [facility] [address] [facility] [id number], [place] [address]- 4917 Mar, [facility] [address] [facility] [id number], [place] [address]- 9706 Mar, [facility] [address] [facility] [id number], [place] [address]- 2178 Jan, [facility] [address] [facility] [id number][place] [address]- 1131 Jan, [facility] [address] [facility] [id number], [place] [address]- 3982 May, [facility] [address] [facility] [id number]- 8126 Mar, [facility] [address] [facility] [id number] 8779 Sep, IMMUNIZATIONS No Known Immunizations SOCIAL HISTORY Never Assessed REASON FOR VISIT Controlled Med Refill 09/17/16 PLAN OF CARE VITAL SIGNS MEDICATIONS Medication Instructions Dosage Frequency Start Date End Date Duration Status Klonopin 1 MG Orally 3 times a day PRN 1 tablet 28 days Active Tramadol HCl 50 MG Orally 4 times a day 1 tablet as needed 6h 28 days Active RESULTS No Results PROCEDURES [...]
--- OUTSIDE RECORDS SUMMARY | 2017-12-28 01:48 | XMS REPORT ---
Author Author CRISTIANO Ferrari [facility]ALK IN [facility] Address [address] [place] [address] Care Team Providers Care Filter Helper Name Role Phone [email or web address] CRISTIANO Unavailable PROBLEMS Type Condition ICD9-CM Code VPP50-FB Code Onset Dates Condition Status SNOMED Code Problem Other chronic gastritis without hemorrhage K29.50 Active 2151009 Problem Allergic rhinitis, unspecified allergic rhinitis trigger, unspecified rhinitis seasonality J30.9 Active 11287264 Problem Other chronic pain G89.29 Active 10042445 ALLERGIES Substance Reaction Event Type Date Status Penicillin V Potassium Unknown Drug Allergy Aug, Active ENCOUNTERS Encounter Location Date Diagnosis [place] [address] [address] Apr, Allergic rhinitis, unspecified allergic rhinitis trigger, unspecified rhinitis seasonality J30.9 [place] [address] [address]- [address] Apr, Allergic rhinitis, unspecified allergic rhinitis trigger, unspecified rhinitis seasonality J30.9 [place] [address] [address]- [address] 15 Apr, 2017 Other chronic gastritis without hemorrhage K29.50 [facility] [address] [address]- [address] 14 Apr, 2017 [facility] [address] [address]- [address] 05 Apr, 2017 Allergic rhinitis, unspecified allergic rhinitis trigger, unspecified rhinitis seasonality J30.9 [facility] [address] [address]- 17[address] Apr, [facility] [address] [address]- [address] Mar, Allergic rhinitis, unspecified allergic rhinitis trigger, unspecified rhinitis seasonality J30.9 [facility] [address] [place] [id number] [place] [address]94- 3026 Mar, [facility] [address] [place] [id number] [place] [address] 05318- 5929 Jan, [facility] [address] [place] [id number] [place] [address] 46776- 7228 Jan, [facility] [address] [place] [id number] [place] [address] 79601- 4652 Dec, Allergic rhinitis, unspecified allergic rhinitis trigger, unspecified rhinitis seasonality J30.9 ; Other chronic pain G89.29 ; Pain in left knee M25.562 ; Pain in right knee M25.561 and Low back pain M54.5 [facility] [address] [place] [id number] [place] [address] 44829- 8610 Dec, [facility] [address] [place] [id number] [place] [address] 90913- 2947 Nov, [facility] [address] [address]- 2713 Nov, [facility] [address] [place] [id number] [place] [address] 65816- 0586 Nov, [facility] [address] [place] [id number] [place] [address] 87350- 1129 Oct, [facility] [address] [place] [id number] [place] [address] 71779- 4722 Sep, [facility] [address] [place] [id number] [place] [address] 63820- 5783 Aug, [facility] [address] [place] [id number] [place] [address] 80166 -2322 Aug, Laceration without foreign body, left lower leg, initial encounter S81.812A [facility] [address] [address]- 0076 Jul, [facility] [address] [place] [id number] [place] [address] 10316- 8731 June, [facility] [address] [place] [id number] [place] [address] 17106 -8771 June, Exposure to strep throat Z20.818 [facility] [address] [place] [id number] [place] [address] 58919- 2978 May, [facility] [address] [place] [id number] [place] [address] 73562- 1608 Apr, [place] [address] [address]- [address] Apr, Diverticulitis of intestine without perforation or abscess without bleeding, unspecified part of intestinal tract K57.92 and Other chronic pain G89.29 [place] [address] 8[address]89- 1239 Apr, Allergic rhinitis, unspecified allergic rhinitis trigger, unspecified rhinitis seasonality J30.9 [place] [address] [place] [id number] [place] [address] 84901- 6827 Mar, Allergic rhinitis, unspecified allergic rhinitis trigger, unspecified rhinitis seasonality J30.9 [place] [address] [place] [id number] [place] [address] 01423- 7902 Jan, Low back pain M54.5 and Allergic rhinitis, unspecified allergic rhinitis trigger, unspecified rhinitis seasonality J30.9 [place] [address] [place] [id number] [place] [address] 07568- 9807 Dec, Allergic rhinitis, unspecified allergic rhinitis trigger, unspecified rhinitis seasonality J30.9 ; Encounter for immunization Z23 ; Low back pain M54.5 ; Other chronic pain G89.29 ; Pain in left knee M25.562 and Pain in right knee M25.561 [place] [address] [place] [id number] [place] [address] 68279- 4237 Nov, [place] [address] [place] [id number] [place] [address] 4378 14 Nov, 2015 [facility] [id number] [place] [address], [place] [address]- 8333 14 Nov, 2015 [facility] [id number] [place] [address]- 1151 15 Oct, 2015 [facility] [id number] [place] [address], [place] [address]- 6646 14 Oct, 2015 [facility] [address] [facility] [id number] [place] [address], [place] [address]- 6741 14 Oct, 2015 [facility] [address] [place] [id number] [place] [address], [place] [address]- 9406 18 Sep, 2015 [facility] [address] [place] [id number] [place] [address], [place] [address]- 7796 Sep, [facility] [address] [place] [id number] [place] [address] 18615- 7835 Sep, Adjustment disorder with anxiety F43.22 and Impulse control disorder F63.9 [facility] [id number] [place] [address]- 6615 Aug, [facility] [address], [place] [address]- 6047 Jul, [facility] [address], [place] [address]- 3384 Jul, [facility] [address], [place] [address]- 6368 Jul, [facility] [id number] [place] [address]- 0879 June, [facility] [id number] [place] [address] 34131- 0215 May, [facility] [id number] [place] [address]- 4470 Apr, [facility] [address] [place] [id number] [address]- 2[address] Apr, [facility] [id number] [place] [address] 11965- 6869 Apr, Irritable bowel syndrome with diarrhea K58.0 [facility] [address], [place] [address] Apr, Colitis K52.9 [facility] [address] [place] [id number] [place] [address] 92228- 1176 Mar, [facility] [address] [place] [id number] [place] [address] 62358- 3867 Jan, [facility] [address] [place] [id number] [place] [address] 54196- 2376 Jan, [facility] [address] [place] [id number] [place] [address] 51422- 5299 Dec, [facility] [address] [place] [id number] [place] [address] 79949- 0998 Nov, [facility] [id number] [place] [address] 06822- 0437 Oct, [facility] [id number] [place] [address] 72015- 9406 Sep, [facility] [address], [place] [address]- 6973 Aug, Ankle sprain 845.00 [facility] [address], [place] [address]- 0404 Aug, Diverticulitis large intestine 562.11 [facility] [address] [place] [id number] [place] [address] 72103- 0143 Aug, [facility] [address], [place] [address]- 1649 Jul, Irritable bowel syndrome 564.1 [facility] [address] [place] [id number] [place] [address] 29549- 6018 Jul, Ankle sprain 845.00 [facility] [address] [id number] [place] [address]- 9788 Jul, [facility] [address] [facility] [id number] [address]- 9421 June, [facility] [address] [facility] [id number] [place] [address]- 7545 May, [facility] [place] [facility] [address] [id number] [place] [address]- 0942 May, [facility] [address] [id number] [place] [address]- 3253 Apr, [facility] [address] [facility] [id number] [place] [address]- 0252 Apr, [facility] [address] [facility] [id number], [place] [address]- 6479 Apr, [facility] [address] [facility] [id number], [place] [address]- 0992 Apr, [facility] [address] [facility] [id number] [place] [address]- 5859 Apr, [facility] [address] [facility] [id number], [place] [address]- 4734 Apr, [facility] [address] [facility] [id number][place] [address]- 8866 Apr, [facility] [address] [facility] [id number], [place] [address]- 5606 Apr, 2014 [facility] [place] [facility] [address] [facility] [id number], [place] [address]- 8780 Apr, [facility] [place] [facility] [address] [facility] [id number], [place] [address]- 0791 Nov, [facility] [place] [facility] [address] [facility] [id number], [place] [address]- 8855 Nov, [facility] [place] [facility] [address] [id number] [place] [address]- 4869 Nov, [facility] [place] [facility] [address] [id number] [place] [address]- 6901 Nov, [facility] [place] [facility] [address] [id number] [place] [address]- 9982 Nov, [facility] [place] [facility] [address] [id number] [place] [address]- 5725 Sep, [facility] [place] [facility] [address] [id number] [place] [address]- 4613 Sep, [facility] [place] [facility] [address] [id number] [place] [address]- 5706 Sep, [facility] [place] [facility] [address] [id number] [place] [address]- 9700 Sep, [facility] [place] [facility] [address] [id number] [place] [address]- 9391 Sep, [facility] [place] [facility] [address] [id number] [place] [address]- 7018 Aug, [facility] [place] [facility] [address] [id number] [place] [address]- 9011 Aug, [facility] [place] [facility] [address] [id number] [place] [address]- 1902 Aug, [facility] [place] [facility] [address] [id number] [place] [address]- 0720 Aug, [facility] [place] [facility] [address] [id number] [place] [address]- 0908 Aug, [facility] [place] [facility] [address] [id number] [place] [address]- 7022 Aug, [facility] [place] [facility] [address] [id number] [place] [address]- 9756 Aug, [facility] [place] [facility] [address] [id number] [place] [address]- 3277 Aug, [facility] [place] [facility] [address] [id number] [place] [address]- 1000 Aug, [facility] [place] [facility] [address] [id number] [place] 4674 Aug, [facility] [place] [facility] [address] [id number] [place] [address]- 5449 Aug, [facility] [place] [facility] [address] [id number] [place] [address]- 3104 Apr, [facility] [place] [facility] [address] [id number] [place] [address]- 8910 Apr, [facility] [place] [facility] [address] [id number] [place] 9067 Apr, [facility] [place] [facility] [address] [id number] [place] [address]- 1003 Apr, [facility] [place] [facility] [address] [id number] [place] [address]- 3951 Oct, [facility] [place] [facility] [address] [id number] [place] [address]- 9352 Sep, [facility] [place] [facility] [address] [id number] [place] [address]- 1902 Sep, [facility] [place] [facility] [address] [id number] [place] [address]- 6612 Aug, [facility] [place] [facility] [address] [id number] [place] [address]- 8874 May, [facility] [place] [facility] [address] [id number] [place] [address]- 6986 Mar, [facility] [place] [facility] [address] [id number] [place] [address]- 4860 Jan, [facility] [place] [facility] [address] [id number] [place] [address]- 0386 Jan, [facility] [place] [facility] [address] [id number] [place] [address]- 0146 Jan, [facility] [address] [id number] [place] [address]- 0306 Jan, [facility] [address] [facility] [id number] [place] [address] 2546 Jan, [facility] [address] [facility] [id number] [place] [address]- 9296 Dec, [facility] [address] [id number] [place] [address]- 4895 Dec, [facility] [address] [id number] [place] [address]- 1186 Oct, [facility] [address] [facility] [id number] [place] [address]- 6508 Oct, [facility] [address] [facility] [id number] [place] [address]- 9092 Sep, [facility] [address] [facility] [id number] [place] [address]- 7870 Mar, [facility] [address] [facility] [id number], [place] [address]- 5168 Mar, [facility] [address] [facility] [id number] [place] [address]- 3896 Jan, [facility] [address] [facility] [id number], [place] [address]- 1066 Jan, [facility] [address] [facility] [id number]- 1671 May, [facility] [address] [facility] [id number] [place] 5282 Mar, [facility] [address] [facility] [id number], [place] [address]- 3147 Sep, IMMUNIZATIONS No Known Immunizations SOCIAL HISTORY Never Assessed REASON FOR VISIT leg laceration on back of left lower leg. IVETTE Toure. PLAN OF CARE Activity Details Follow Up prn Reason: VITAL SIGNS Height 72 in 2016-09-04 Weight 211 lbs 2016-09-04 Temperature 98.2 degrees Fahrenheit 2016-09-04 Heart Rate 72 bpm 2016-09-04 Respiratory Rate 18 2016-09-04 BMI 28.61 kg/m2 2016-09-04 Blood pressure systolic 122 mmHg 2016-09-04 Blood pressure diastolic 76 mmHg 2016-09-04 MEDICATIONS Medication Instructions Dosage Frequency Start Date End Date Duration Status Tramadol HCl 50 MG Orally 4 times a day 1 tablet as needed 6h 28 days Active Bactrim DS 800-160 MG Orally Twice a day 1 tablet 12h Aug,Aug 10 day(s) Active ZyrTEC Active Klonopin 1 MG Orally 3 times [...]
--- OUTSIDE RECORDS SUMMARY | 2017-12-28 01:48 | XMS REPORT ---
Author Author REBA MCGHEE Organization [facility] Address [address] [place] [address] Care Team Providers Care Manager Commercial Sales Name Role Phone REBA MCGHEE Unavailable PROBLEMS Type Condition ICD9-CM Code XTH81-QZ Code Onset Dates Condition Status SNOMED Code Problem Other chronic gastritis without hemorrhage K29.50 Active 4971524 Problem Allergic rhinitis, unspecified allergic rhinitis trigger, unspecified rhinitis seasonality J30.9 Active 97888543 Problem Other chronic pain G89.29 Active [id number] ALLERGIES No Information ENCOUNTERS Encounter Location Date Diagnosis [place] [address] [address] 02 May, 2017 [place] [address] [address]- [address] Apr, [place] [address] [address]- [address] Apr, Allergic rhinitis, unspecified allergic rhinitis trigger, unspecified rhinitis seasonality J30.9 [place] [address] [address] [place] [id number] [place] [address] 46773- 6860 02 Apr, 2017 Allergic rhinitis, unspecified allergic rhinitis trigger, unspecified rhinitis seasonality J30.9 [facility] [address] [address]- [address] 15 Apr, 2017 Other chronic gastritis without hemorrhage K29.50 [place] [address] 20887- 4739 14 Apr, 2017 [place] [address] 04296- 5647 05 Apr, 2017 Allergic rhinitis, unspecified allergic rhinitis trigger, unspecified rhinitis seasonality J30.9 [place] [address] 16394- 7674 Apr, [facility] [address] [place] [id number] [place] [address] 493705- 4696 Mar, Allergic rhinitis, unspecified allergic rhinitis trigger, unspecified rhinitis seasonality J30.9 [facility] [address] [place] [id number] [place] [address] 67395- 9016 Mar, [facility] [address] 98674- 6941 Jan, [facility] [address] [place] [id number] [place] [address] 08672- 3646 Jan, [facility] [address] [place] [id number] [place] [address] 60730- 7924 Dec, Allergic rhinitis, unspecified allergic rhinitis trigger, unspecified rhinitis seasonality J30.9 ; Other chronic pain G89.29 ; Pain in left knee M25.562 ; Pain in right knee M25.561 and Low back pain M54.5 [facility] [address] [place] [id number] [place] [address] 95469- 9529 Dec, [facility] [address] [place] [id number] [place] [address] 98917- 2543 Nov, [facility] [address] [place] [address] 33844- 7521 Nov, [facility] [address] [place] [id number] [place] [address] 93307- 0829 Nov, [facility] [address] [place] [id number] [place] [address] 83361- 4953 Oct, [facility] [address] [place] [id number] [place] [address] 135146- 4615 Sep, [facility] [address] [place] [id number] [place] [address] 51182- 9410 Aug, [facility] [address] [place] [address] 86971 -5654 Aug, Laceration without foreign body, left lower leg, initial encounter S81.812A [place] [address] [place] [id number] [place] [address] 60479- 6102 Jul, [facility] [address] [place] [id number] [place] [address] 07851- 9438 June, [facility] [address] [place] [id number] [place] [address] 81197 -5853 June, Exposure to strep throat Z20.818 [facility] [address] [place] [id number] [place] [address] 59175- 6968 May, [place] [address] 97719- 8850 Apr, [place] [address] [place] [id number] [place] [address] 63366- 7562 Apr, Diverticulitis of intestine without perforation or abscess without bleeding, unspecified part of intestinal tract K57.92 and Other chronic pain G89.29 [place] [address] [place] [id number] [place] [address] 17415- 8448 Apr, Allergic rhinitis, unspecified allergic rhinitis trigger, unspecified rhinitis seasonality J30.9 [place] [address] [place] [id number] [place] [address] 10655- 3091 Mar, Allergic rhinitis, unspecified allergic rhinitis trigger, unspecified rhinitis seasonality J30.9 [place] [address] [place] [id number] [place] [address] 81971- 8566 Jan, Low back pain M54.5 and Allergic rhinitis, unspecified allergic rhinitis trigger, unspecified rhinitis seasonality J30.9 [place] [address] 66153- 1744 Dec, Allergic rhinitis, unspecified allergic rhinitis trigger, unspecified rhinitis seasonality J30.9 ; Encounter for immunization Z23 ; Low back pain M54.5 ; Other chronic pain G89.29 ; Pain in left knee M25.562 and Pain in right knee M25.561 [place] [address] [facility] [id number] [place] [address]- 6580 14 Nov, 2015 [facility] [address] [place] [id number] [place] [address]- 5327 14 Nov, 2015 [facility] [address] [facility] [id number] [place] [address]- 4722 14 Nov, 2015 [facility] [address] [place] [id number] [place] [address], [place] [address]- 3064 15 Oct, 2015 [facility] [address] [facility] [id number] [place] [address]- 2495 14 Oct, 2015 [facility] [address] [place] [id number] [place] [address], [place] [address]- 8968 14 Oct, 2015 [facility] [id number] [place] [address]- 1853 18 Sep, 2015 [facility] [id number] [place] [address]- 2110 Sep, [facility] [id number] [place] [address]- 8687 Sep, Adjustment disorder with anxiety F43.22 and Impulse control disorder F63.9 [facility] [id number] [place] [address]- 2066 Aug, [facility] [id number] [address]- 8178 Jul, [facility] [id number] [place] [address]- 2594 Jul, [facility] [id number] [place] [address]- 8969 Jul, [facility] [id number] [place] [address]- 6079 June, [facility] [id number] [place] [address]- 2008 May, [facility] [id number] [address]- 0271 Apr, [facility] [address] [address]- 8056 Apr, [facility] [address] [place] [id number] [address]- 5696 Apr, Irritable bowel syndrome with diarrhea K58.0 [facility] [address] [place] [address] 18089 -1656 Apr, Colitis K52.9 [facility] [id number] [place] [address], [place] [address]- 1758 Mar, [facility] [address] [place] [address] 33058- 0243 Jan, [facility] [address] [place] [address] 40609- 6224 Jan, [facility] [id number] [address]- 3357 Dec, [facility] [address] [place] [address] 56802- 7458 Nov, [facility] [id number] [address]- 2265 Oct, [facility] [address] [address]- 5921 Sep, [facility] [id number], [place] [address]- 5647 Aug, Ankle sprain 845.00 [facility] [id number] [address]- 7225 Aug, Diverticulitis large intestine 562.11 [facility] [address] [address]- 4820 Aug, [facility] [id number] [address]- 1366 Jul, Irritable bowel syndrome 564.1 [facility] [address] [facility] [id number] [place] [address]- 4849 Jul, Ankle sprain 845.00 [facility] [address] [id number] [place] [address]- 1824 Jul, [facility] [address] [facility] [id number], [place] [address]- 2466 June, [facility] [address] [facility] [id number] [place] [address]- 0073 May, [facility] [address] [facility] [id number] [place] 3136 May, [facility] [id number] 5959 Apr, [facility] [id number] [place] [address]- 9193 Apr, [facility] [address] [facility] [id number], [place] [address]- 8578 Apr, [facility] [id number] [place] [address]- 6333 Apr, [facility] [address] [place] [id number] [address]- 6343 Apr, [facility] [address] [place] [id number] [address]- 5456 Apr, [facility] [address] [facility] [id number], [place] [address]- 0896 Apr, [facility] [address] [facility] [id number], [place] [address]- 3626 Apr, [facility] [address] [facility] [id number], [place] [address]- 5466 Apr, [facility] [address] [place] [id number] [address]- 2079 14 Nov, 2013 [facility] [place] [facility] [address] [id number] [place] [address]- 4622 14 Nov, 2013 [facility] [place] [facility] [address] [id number] [place] [address]- 2233 Nov, [facility] [place] [facility] [address] [id number] [place] [address]- 2833 Nov, [facility] [place] [facility] [address] [id number] [place] [address]- 2141 Nov, [facility] [place] [facility] [address] [id number] [place] [address]- 6611 Sep, [facility] [place] [facility] [address] [id number] [place] [address]- 0210 Sep, [facility] [place] [facility] [address] [id number] [place] [address]- 7340 Sep, [facility] [place] [facility] [address] [id number] [place] [address]- 8642 Sep, [facility] [place] [facility] [address] [id number] [place] [address]- 8227 Sep, [facility] [place] [facility] [address] [id number] [place] [address]- 7110 Aug, [facility] [place] [facility] [address] [id number] [place] [address]- 0862 Aug, [facility] [place] [facility] [address] [id number] [place] [address]- 1060 Aug, [facility] [place] [facility] [address] [id number] [place] [address]- 6665 Aug, [facility] [place] [facility] [address] [id number] [place] [address]- 4986 Aug, [facility] [place] [facility] [address] [id number] [place] [address]- 4949 Aug, [facility] [place] [facility] [address] [id number] [place] [address]- 5949 Aug, [facility] [address] [id number] [place] [address]- 0482 Aug, [facility] [place] [facility] [address] [id number] [place] [address]- 1341 Aug, [facility] [place] [facility] [address] [id number] [place] [address]- 0088 Aug, [facility] [place] [facility] [address] [id number] [place] [address]- 3856 Aug, [facility] [place] [facility] [address] [id number] [place] [address]- 1647 Apr, [facility] [place] [facility] [address] [id number] [place] [address]- 3817 Apr, [facility] [place] [facility] [address] [id number] [place] [address]- 6755 Apr, [facility] [place] [facility] [address] [id number] [place] [address]- 4794 Apr, [facility] [place] [facility] [address] [id number] [place] [address]- 4786 Oct, [facility] [place] [facility] [address] [id number] [place] [address]- 8197 Sep, [facility] [place] [facility] [address] [id number] [place] [address]- 2555 Sep, [facility] [place] [facility] [address] [id number] [place] [address]- 5112 Aug, [facility] [place] [facility] [address] [id number] [place] [address]- 4834 May, [facility] [place] [facility] [address] [id number] [place] [address]- 9416 Mar, [facility] [place] [facility] [address] [id number] [place] [address]- 3371 Jan, [facility] [place] [facility] [address] [id number] [place] [address]- 5550 Jan, [facility] [place] [facility] [address] [id number] [place] 1928 Jan, [facility] [place] [facility] [address] [id number] [place] [address]- 8034 Jan, [facility] [place] [facility] [address] [id number] [place] [address]- 7662 Jan, [facility] [place] [facility] [address] [id number] [place] 0205 Dec, [facility] [place] [facility] [address] [id number] [place] [address]- 2455 Dec, [facility] [place] [facility] [address] [id number] [place] [address]- 2853 Oct, [facility] [place] [facility] [address] [id number] [place] [address]- 2347 Oct, [facility] [place] [facility] [address] [id number] [place] [address]- 5290 Sep, [facility] [place] [facility] [address] [id number] [place] [address]- 5384 Mar, [facility] [place] [facility] [address] [id number] [place] [address]- 6927 Mar, [facility] [place] [facility] [address] [id number] [address]- 1330 Jan, [facility] [place] [facility] [address] [id number] [place] [address]- 8376 Jan, [facility] [place] [facility] [address] [id number] [place] [address]- 6784 May, [facility] [place] [facility] [address] [id number], [place] [address]- 4427 Mar, [facility] [place] [facility] [address] [id number], [place] [address]- 7686 Sep, IMMUNIZATIONS No Known Immunizations SOCIAL HISTORY Never Assessed REASON FOR VISIT Controlled Med Refill 12/10/16 PLAN OF CARE VITAL SIGNS MEDICATIONS Medication [...]
--- OUTSIDE RECORDS SUMMARY | 2017-12-28 01:49 | XMS REPORT ---
Author Author REBA MCGHEE Organization [facility] Address [address] [place] [address] Care Team Providers Care Laundry Sorter Name Role Phone REBA MCGHEE Unavailable PROBLEMS Type Condition ICD9-CM Code [id number] Code Onset Dates Condition Status SNOMED Code Problem Other chronic gastritis without hemorrhage K29.50 Active 4686132 Problem Allergic rhinitis, unspecified allergic rhinitis trigger, unspecified rhinitis seasonality J30.9 Active 44787644 Problem Other chronic pain G89.29 Active 82947521 ALLERGIES No Information ENCOUNTERS Encounter Location Date Diagnosis [place] [address] [address] June, [place] [address] [address] May, [facility] [address] [address]- [address] Apr, [place] [address] [address]- [address]016 Apr, Allergic rhinitis, unspecified allergic rhinitis trigger, unspecified rhinitis seasonality J30.9 [facility] [address] [address]- [address] 02 Apr, 2017 Allergic rhinitis, unspecified allergic rhinitis trigger, unspecified rhinitis seasonality J30.9 [facility] [address] [address]- [address] 15 Apr, 2017 Other chronic gastritis without hemorrhage K29.50 [facility] [address] [address]- [address] 14 Apr, 2017 [facility] [address] [address]- 8575 05 Apr, 2017 Allergic rhinitis, unspecified allergic rhinitis trigger, unspecified rhinitis seasonality J30.9 [facility] [address], [place] [address] Apr, [facility] [address] [place] [id number] [place] [address] 063133- 9507 Mar, Allergic rhinitis, unspecified allergic rhinitis trigger, unspecified rhinitis seasonality J30.9 [facility] [address] [place] [id number] [place] [address] 23103- 2866 Mar, [facility] [address] [place] [id number] [place] [address] 33694- 4605 Jan, [facility] [address] [place] [id number] [place] [address] 04433- 0976 Jan, [facility] [address] [place] [id number] [place] [address] 09793- 2168 Dec, Allergic rhinitis, unspecified allergic rhinitis trigger, unspecified rhinitis seasonality J30.9 ; Other chronic pain G89.29 ; Pain in left knee M25.562 ; Pain in right knee M25.561 and Low back pain M54.5 [facility] [address] [place] [id number] [place] [address] 00388- 6101 Dec, [facility] [address] [place] [id number] [place] [address] 07348- 6618 Nov, [facility] [address] [place] [id number] [place] [address] 15941- 8449 Nov, [facility] [address] [place] [id number] [place] [address] 36776- 9798 Nov, [facility] [address] [place] [id number] [place] [address] 77019- 2013 Oct, [facility] [address] [place] [id number] [place] [address] 29384- 0564 Sep, [facility] [address] [place] [id number] [place] [address] 94238- 7711 Aug, [facility] [id number] [place] [address] 23438 -2405 Aug, Laceration without foreign body, left lower leg, initial encounter S81.812A [facility] [address] [place] [id number] [place] [address] 81848- 5335 Jul, [facility] [address] [place] [id number] [place] [address] 73256- 1534 June, [facility] [address] [place] [id number] [place] [address] 13847 -0325 June, Exposure to strep throat Z20.818 [place] [address] [address]- [address] May, [place] [address] [place] [id number] [place] [address] 11499- 2427 Apr, [place] [address] [place] [id number] [place] [address] 69456- 5060 Apr, Diverticulitis of intestine without perforation or abscess without bleeding, unspecified part of intestinal tract K57.92 and Other chronic pain G89.29 [place] [address] [place] [id number] [place] [address] 32114- 4966 03 Apr, 2016 Allergic rhinitis, unspecified allergic rhinitis trigger, unspecified rhinitis seasonality J30.9 [place] [address] [place] [id number] [place] [address] 88463- 3962 Mar, Allergic rhinitis, unspecified allergic rhinitis trigger, unspecified rhinitis seasonality J30.9 [place] [address] [place] [id number] [place] [address] 37538- 1987 Jan, Low back pain M54.5 and Allergic rhinitis, unspecified allergic rhinitis trigger, unspecified rhinitis seasonality J30.9 [place] [address] [place] [id number] [place] [address] 41797- 8178 Dec, Encounter for immunization Z23 ; Allergic rhinitis, unspecified allergic rhinitis trigger, unspecified rhinitis seasonality J30.9 ; Low back pain M54.5 ; Other chronic pain G89.29 ; Pain in left knee M25.562 and Pain in right knee M25.561 [facility] [address] [place] [id number] [place] [address] 24950- 8776 14 Nov, 2015 [facility] [address] [place] [id number] [place] [address] 73913- 2546 14 Nov, 2015 [facility] [address] [place] [id number] [place] [address] 15791- 3945 14 Nov, 2015 [facility] [address] [place] [id number] [place] [address] 01205 2545 15 Oct, 2015 [facility] [address] [place] [id number] [place] [address] 78981- 2979 14 Oct, 2015 [facility] [address] [place] [id number] [place] [address] 40276- 6240 14 Oct, 2015 [facility] [address] [place] [id number] [place] [address] 22535- 6334 18 Sep, 2015 [facility] [address] [place] [id number] [place] [address] 22920- 7382 Sep, [facility] [address] [place] [id number] [place] [address] 45964- 2415 Sep, Adjustment disorder with anxiety F43.22 and Impulse control disorder F63.9 [facility] [address] [place] [address] 87381- 6715 Aug, [facility] [address] [place] [id number] [address]- 8675 Jul, [facility] [address] [place] [id number] [place] [address] 28422- 0720 Jul, [facility] [address] [place] [id number] [place] [address] 48805- 6388 Jul, [facility] [address], [place] [address]- 3800 June, [facility] [address], [place] [address]- 3164 May, [facility] [address], [place] [address]- 0091 Apr, [facility] [address], [place] [address]- 9628 Apr, [facility] [address] [place] [id number] [place] [address] 38058- 0414 Apr, Irritable bowel syndrome with diarrhea K58.0 [facility] [address], [place] [address] Apr, Colitis K52.9 [facility] [address] [place] [address] 68974- 7398 Mar, [facility] [address] [place] [address] 97827- 9534 Jan, [facility] [address], [place] [address]- 9230 Jan, [facility] [id number] [place] [address] 11522- 9236 Dec, [facility] [address], [place] [address]- 0587 Nov, [facility] [address] [place] [address]- 8695 Oct, [facility] [address], [place] [address]- 1531 Sep, [facility] [address], [place] [address]- 3986 Aug, Ankle sprain 845.00 [facility] [address], [place] [address]- 0113 Aug, Diverticulitis large intestine 562.11 [facility] [address] [place] [address] 22495- 9282 Aug, [facility] [address] [place] [id number] [address]- 5319 Jul, Irritable bowel syndrome 564.1 [facility] [address], [place] [address]- 6690 Jul, Ankle sprain 845.00 [facility] [address], [place] [address]- 4615 Jul, [facility] [address] [place] [id number] [place] [address]- 0678 June, [facility] [address] [place] [address]- 7105 May, [facility] [address] 7182 May, [facility] [address] [place] [address]- 1279 Apr, [facility] [address] [place] [id number], [place] [address]- 8958 Apr, [facility] [address] [place] [address]- 6392 Apr, [facility] [address], [place] [address]- 7757 Apr, [facility] [address], [place] [address]- 5406 Apr, [facility] [address] [facility] [id number] [address]- 5743 Apr, [facility] [address], [place] [address]- 3746 Apr, [facility] [address] [place] [id number], [place] [address]- 7406 Apr, [facility] [address], [place] [address]- 9314 Apr, [facility] [place] [facility] [address] [id number] [place] [address]- 9251 Nov, [facility] [place] [facility] [address] [id number] [place] [address]- 7509 Nov, [facility] [place] [facility] [address] [id number] [place] [address]- 8752 Nov, [facility] [place] [facility] [address] [id number] [place] [address]- 4562 Nov, [facility] [place] [facility] [address] [id number] [place] [address]- 8720 Nov, [facility] [place] [facility] [address] [id number] [place] [address]- 3441 Sep, [facility] [place] [facility] [address] [id number] [place] [address]- 6714 Sep, [facility] [place] [facility] [address] [id number] [place] [address]- 5713 Sep, [facility] [place] [facility] [address] [id number] [place] [address]- 4477 Sep, [facility] [place] [facility] [address] [id number] [place] [address]- 7153 Sep, [facility] [place] [facility] [address] [id number] [place] [address]- 7470 Aug, [facility] [place] [facility] [address] [id number] [place] [address]- 6584 Aug, [facility] [place] [facility] [address] [id number] [place] [address]- 6841 Aug, [facility] [place] [facility] [address] [id number] [place] [address]- 3890 Aug, [facility] [place] [facility] [address] [id number] [place] [address]- 0446 Aug, [facility] [place] [facility] [address] [id number] [place] [address]- 8645 Aug, [facility] [place] [facility] [address] [id number] [place] [address]- 9333 Aug, [facility] [place] [facility] [address] [id number] [place] [address]- 6737 Aug, [facility] [place] [facility] [address] [id number] [place] [address]- 3142 Aug, [facility] [place] [facility] [address] [id number] [place] [address]- 0323 Aug, [facility] [place] [facility] [address] [id number] [place] [address]- 1693 Aug, [facility] [place] [facility] [address] [id number] [place] [address]- 3680 Apr, [facility] [place] [facility] [address] [id number] [place] [address]- 0239 Apr, [facility] [place] [facility] [address] [id number] [place] [address]- 4469 Apr, [facility] [place] [facility] [address] [id number] [place] [address]- 0995 Apr, [facility] [place] [facility] [address] [id number] [place] [address]- 9741 Oct, [facility] [place] [facility] [address] [id number] [place] [address]- 8131 Sep, [facility] [place] [facility] [address] [id number] [place] [address]- 8082 Sep, [facility] [place] [facility] [address] [id number] [place] [address]- 7845 Aug, [facility] [place] [facility] [address] [id number] [place] [address]- 8374 May, [facility] [place] [facility] [address] [id number] [place] [address]- 5893 Mar, [facility] [address] [id number] [place] [address]- 3246 Jan, [facility] [place] [facility] [address] [id number] [place] [address]- 7318 Jan, [facility] [place] [facility] [address] [id number] [place] [address]- 8120 Jan, [facility] [place] [facility] [address] [id number] [place] [address]- 0450 Jan, [facility] [place] [facility] [address] [id number] [place] 9391 Jan, [facility] [place] [facility] [address] [id number] [place] [address]- 5224 Dec, [facility] [place] [facility] [address] [id number] [place] [address]- 6295 Dec, [facility] [place] [facility] [address] [id number] [place] [address]- 7014 Oct, [facility] [place] [facility] [address] [id number] [place] [address]- 7230 Oct, [facility] [place] [facility] [address] [id number] [place] [address]- 9708 Sep, [facility] [place] [facility] [address] [id number] [place] [address]- 5798 Mar, [facility] [place] [facility] [address] [id number], [place] [address]- 4950 Mar, [facility] [place] [facility] [address] [id number] [place] [address]- 7446 Jan, [facility] [place] [facility] [address] [id number] [place] [address]- 5933 Jan, [facility] [place] [facility] [address] [id number] [place] [address]- 3015 May, [facility] [place] [facility] [address] [id number], [place] [address]- 5966 Mar, [facility] [address] [facility] [id number] [place] [address]- 1705 Sep, IMMUNIZATIONS No Known Immunizations SOCIAL HISTORY [...]
--- OUTSIDE RECORDS SUMMARY | 2017-12-28 01:50 | XMS REPORT ---
Author Author REBA MCGHEE Organization [facility] [place] Address [address] [place] [address] Care Team Providers Care Benefits Counselor Name Role Phone REBA MCGHEE Unavailable PROBLEMS Type Condition ICD9-CM Code [id number] Code Onset Dates Condition Status SNOMED Code Problem Other chronic gastritis without hemorrhage K29.50 Active 6264652 Problem Allergic rhinitis, unspecified allergic rhinitis trigger, unspecified rhinitis seasonality J30.9 Active 57316185 Problem Other chronic pain G89.29 Active [id number] ALLERGIES No Information ENCOUNTERS Encounter Location Date Diagnosis [place] [address] [address] Apr, Allergic rhinitis, unspecified allergic rhinitis trigger, unspecified rhinitis seasonality J30.9 [place] [address] [address] Apr, Allergic rhinitis, unspecified allergic rhinitis trigger, unspecified rhinitis seasonality J30.9 [place] [address] [address] 15 Apr, 2017 Other chronic gastritis without hemorrhage K29.50 [place] [address] [address] 14 Apr, 2017 [facility] [place] [address] [address] Apr, Allergic rhinitis, unspecified allergic rhinitis trigger, unspecified rhinitis seasonality J30.9 [facility] [place] [address] [address] Apr, [place] [address] [address] Mar, Allergic rhinitis, unspecified allergic rhinitis trigger, unspecified rhinitis seasonality J30.9 [facility] [place] [address] [place] [id number] [place] [address]- [address]37 Mar, [facility] [place] [address] [place] [id number] [place] [address]- [address] Jan, [facility] [place] [address] [place] [id number] [place] [address]24- 7939 Jan, [facility] [place] [address] [address]- [address] Dec, Allergic rhinitis, unspecified allergic rhinitis trigger, unspecified rhinitis seasonality J30.9 ; Other chronic pain G89.29 ; Pain in left knee M25.562 ; Pain in right knee M25.561 and Low back pain M54.5 [facility] [place] [address] [place] [id number] [place] [address]- 0786 Dec, [facility] [place] [address] [place] [id number] [place] [address] 5[address]- 4784 Nov, [facility] [place] [address] [place] [id number] [place] [address]99- 1843 Nov, [facility] [place] [address] [place] [id number] [place] [address] 28104- 4392 Nov, [facility] [place] [address] [place] [id number] [place] [address] 90718- 2847 Oct, [facility] [place] [address] [place] [id number] [place] [address] 19465- 1795 Sep, [facility] [place] [address] [place] [id number] [place] [address]94- 6156 Aug, [facility] [address] [place] [id number] [place] [address] -[address] Aug, Laceration without foreign body, left lower leg, initial encounter S81.812A [facility] [place] [address] [place] [id number] [place] [address] 65868- 9842 Jul, [facility] [place] [address] [place] [address] June, [facility] [address] [place] [id number] [place] [address]52 -1761 June, Exposure to strep throat Z20.818 [facility] [place] [address] [place] [id number] [place] [address] 97747- 5457 May, [facility] [place] [address] [address]- [address] Apr, [facility] [place] [address] [address]- [address] Apr, Diverticulitis of intestine without perforation or abscess without bleeding, unspecified part of intestinal tract K57.92 and Other chronic pain G89.29 [place] [address] [place] [id number] [place] [address] 10128- 9245 Apr, Allergic rhinitis, unspecified allergic rhinitis trigger, unspecified rhinitis seasonality J30.9 [facility] [place] [address] [address]- 0041 Mar, Allergic rhinitis, unspecified allergic rhinitis trigger, unspecified rhinitis seasonality J30.9 [place] [address] [place] [id number] [place] [address] 02428- 5792 Jan, Low back pain M54.5 and Allergic rhinitis, unspecified allergic rhinitis trigger, unspecified rhinitis seasonality J30.9 [place] [address] [place] [id number] [place] [address]25- 8359 Dec, Allergic rhinitis, unspecified allergic rhinitis trigger, unspecified rhinitis seasonality J30.9 ; Encounter for immunization Z23 ; Low back pain M54.5 ; Other chronic pain G89.29 ; Pain in left knee M25.562 and Pain in right knee M25.561 [place] [address] [place] [id number] [place] [address]476- 8130 Nov, [place] [address] [address]- [address] Nov, [place] [address] [facility] [id number] [place] [address]- 9771 14 Nov, 2015 [facility] [address] [place] [address]- 7859 15 Oct, 2015 [facility] [address] [place] [address]- 7938 14 Oct, 2015 [facility] [id number] [place] [address], [place] [address]- 7[address] 14 Oct, 2015 [facility] [address] [facility] [id number] [place] [address]- 2610 18 Sep, 2015 [facility] [id number] [place] [address], [place] [address]- 0[address] Sep, [facility] [address] [place] [address]- 3715 Sep, Adjustment disorder with anxiety F43.22 and Impulse control disorder F63.9 [facility] [address] [place] [address]- 0416 Aug, [facility] [address] [place] [address]- 6012 Jul, [facility] [address] [place] [address]- 9656 Jul, [facility] [address] [address]- 9329 Jul, [facility] [address] [place] [address]- 6309 June, [facility] [address] [place] [address]- 1078 May, [facility] [address] [place] [address]- 2283 Apr, [facility] [address] [place] [address]- 0728 Apr, [facility] [address] [address]- 9[address] 10 Apr, 2015 Irritable bowel syndrome with diarrhea K58.0 [facility] [address] [address] 06 Apr, 2015 Colitis K52.9 [facility] [place] [address] [address]- 276[address] Mar, [facility] [place] [address] [address]- 9247 Jan, [facility] [place] [address] [address] Jan, [facility] [place] [address] [address]- 98[address] Dec, [facility] [place] [address] [address]- 8644 Nov, [facility] [place] [address] [address]- 6927 Oct, [facility] [place] [address] [address]- 5042 Sep, [facility] [place] [address] [address]- 37[address] Aug, Ankle sprain 845.00 [facility] [place] [address] [address]- 6534 Aug, Diverticulitis large intestine 562.11 [facility] [place] [address] [address]- 1725 Aug, [facility] [place] [address] [address]- 9192 Jul, Irritable bowel syndrome 564.1 [facility] [place] [address] [address]- 4243 Jul, Ankle sprain 845.00 [facility] [place] [address] [place] [address]- 7209 Jul, [facility] [address] [id number] [place] [address]- 7340 June, [facility] [place] [facility] [address] [id number] [place] [address]- 4523 May, [facility] [place] [facility] [address] [id number] [place] [address]- 9258 May, [facility] [place] [facility] [address] [id number] [place] [address]- 6366 Apr, [facility] [place] [facility] [address] [id number] [place] [address]- 1187 Apr, [facility] [place] [facility] [address] [facility] [id number] [place] [address]- 8425 Apr, [facility] [place] [facility] [address] [facility] [id number] [place] [address]- 3733 Apr, [facility] [place] [facility] [address] [facility] [id number] [place] [address]- 9220 Apr, [facility] [place] [facility] [address] [facility] [id number] [place] [address]- 4889 Apr, [facility] [place] [facility] [address] [facility] [id number] [place] [address]- 3507 Apr, [facility] [place] [facility] [address] [facility] [id number] [place] [address]- 4379 Apr, 2014 [facility] [place] [facility] [address] [facility] [id number] [place] [address]- 7877 Apr, [facility] [place] [facility] [address] [id number] [place] [address]- 5886 Nov, [facility] [place] [facility] [address] [facility] [id number] [address]- 0996 14 Nov, 2013 [facility] [place] [facility] [address] [facility] [id number] [place] [address]- 4625 Nov, [facility] [place] [facility] [address] [id number] [place] [address]- 9368 Nov, [facility] [place] [facility] [address] [id number] [place] [address]- 4728 Nov, [facility] [place] [facility] [address] [id number] [place] [address]- 7950 Sep, [facility] [place] [facility] [address] [id number] [place] [address]- 7144 Sep, [facility] [place] [facility] [address] [id number] [place] [address]- 1299 Sep, [facility] [place] [facility] [address] [id number] [place] [address]- 1729 Sep, [facility] [place] [facility] [address] [id number] [place] [address]- 9055 Sep, [facility] [place] [facility] [address] [id number] [place] [address]- 6006 Aug, [facility] [place] [facility] [address] [id number] [place] [address]- 6839 Aug, [facility] [place] [facility] [address] [id number] [place] [address]- 1676 Aug, [facility] [place] [facility] [address] [id number] [place] [address]- 1077 Aug, [facility] [place] [facility] [address] [id number] [place] [address]- 6889 Aug, [facility] [place] [facility] [address] [id number] [place] [address]- 6360 Aug, [facility] [place] [facility] [address] [id number] [place] [address]- 3526 Aug, [facility] [place] [facility] [address] [id number] [place] [address]- 2768 Aug, [facility] [place] [facility] [address] [id number] [place] [address]- 8448 Aug, [facility] [address] [id number] [place] [address]- 9574 Aug, [facility] [place] [facility] [address] [id number] [place] [address]- 9183 Aug, [facility] [place] [facility] [address] [id number] [place] [address]- 9206 Apr, [facility] [place] [facility] [address] [id number] [place] [address]- 2418 Apr, [facility] [place] [facility] [address] [id number] [place] [address]- 1534 Apr, [facility] [place] [facility] [address] [id number] [place] [address]- 3948 Apr, [facility] [address] [id number] [place] [address]- 7532 Oct, [facility] [address] [id number] [place] [address]- 7726 Sep, [facility] [place] [facility] [address] [id number] [place] [address]- 6793 Sep, [facility] [address] [id number] [place] [address]- 7354 Aug, [facility] [place] [facility] [address] [id number] [place] [address]- 9281 May, [facility] [place] [facility] [address] [id number] [place] [address]- 9229 Mar, [facility] [place] [facility] [address] [id number] [place] [address]- 9747 Jan, [facility] [place] [facility] [address] [id number] [place] [address]- 2275 Jan, [facility] [place] [facility] [address] [id number] [place] [address]- 9777 Jan, [facility] [place] [address] [facility] [id number] [address]- 3277 Jan, [facility] [place] [address] [facility] [id number], [place] [address]- 7296 Jan, [facility] [place] [address] [facility] [id number], [place] [address]- 9146 Dec, [facility] [place] [address] [facility] [id number], [place] [address]- 9626 Dec, [facility] [place] [address] [facility] [id number][place] 4669 Oct, [facility] [place] [address] [facility] [id number][place] [address]486 Oct, [facility] [place] [address] [address]67 Sep, [facility] [place] [address] [address]- 8034 Mar, [facility] [place] [address] [address]- 7644 Mar, [facility] [place] [address] [address]- [address] Jan, [facility] [place] [address] [place] [id number] [address] Jan, [facility] [place] [address] [place] [id number] [address]- 3428 May, [facility] [place] [address] [place] [id number] [address] Mar, [facility] [place] [address] [place] [id number] [address] Sep, IMMUNIZATIONS No Known Immunizations SOCIAL HISTORY [...]
--- OUTSIDE RECORDS SUMMARY | 2017-12-28 01:52 | XMS REPORT | Continuity of Care Document ---
Author Author [facility] Ctr of [facility] C[facility] of [facility] Address Unknown Phone Unavailable Allergies Active Description Code Type Severity Reaction Onset Reported/Identified Relationship to Patient Clinical Status Yes amoxicillin [id number] Drug Allergy Unknown N/A 09/15/2005 Yes Penicillins [...] REBA MCGHEE APRN V58.69 MEDICATION HIGH RISK 06/26/2008 [...] T 465.9 Upper Respiratory Infection 06/09/2010 LITZY COMB WINDER, REBA T 462 Pharyngitis Acute 06/09/2010 LITZY COMB WINDERREBA T 465.9 Upper Respiratory Infection 06/09/2010 LITZY JALLOHNREBA T 462 Pharyngitis Acute 06/09/2010 LITZY JALLOHNREBA T 465.9 Upper Respiratory Infection 06/09/2010 LITZY JALLOHNREBA T 462 Pharyngitis Acute 06/09/2010 REBA MCGHEE APRN T 465.9 Upper Respiratory Infection [...] REBA MCGHEE APRN 578.0 HEMATEMESIS 03/20/2011 REBA MCGEHE APRN 578.0 HEMATEMESIS 03/20/2011 REBA MCGHEE APRN [...] REBA Mosquera V58.32 Suture Removal 11/21/2011 LITZY VELÁSUQEZ, REBA Mosquera V58.32 Suture Removal 02/01/2012 LEIGH DO, DWAIN K 789.00 ABDOMINAL PAIN UNSPECIFIED SITE 02/01/2012 LEIGH DO, WDAIN K 789.00 ABDOMINAL PAIN UNSPECIFIED SITE 02/01/2012 [...] APRN 530.81 GERD 10/10/2012 FRANCK CARSON, JOHN Villar Ot 530.11 10/10/2012 FRANCK CARSON, JOHN Villar Ot 535.50 04/04/2013 REBA MCGHEE APRN 706.2 SEBACEOUS CYST 04/04/2013 REBA MCGHEE APRN T 706.2 SEBACEOUS CYST 04/04/2013 REBA MCGHEE APRN 706.2 SEBACEOUS CYST 04/04/2013 REBA MCGHEE APRN 706.2 SEBACEOUS CYST 09/19/2013 REBA SUN DO Ot 535.50 09/19/2013 DINOREBA DWYER DO Ot 558.9 09/19/2013 DINOREBA DWYER DO Ot 787.01 09/19/2013 DINOREBA DWYER DO Ot 787.91 09/19/2013 REBA SUN DO [...] BROWN, EUGENE K Ot 719.47 08/15/2014 LISANDRO BROWN, EUGENE K Ot 845.00 08/15/2014 LISANDRO DO, EUGENE K Ot E000.8 08/15/2014 LISANDRO DO, EUGENE K Ot E849.0 08/15/2014 LISANDRO DO, EUGENE K Ot E927.0 08/15/2014 FRANCK CARSON, JOHN Villar Ot V72.84 08/29/2014 FRANCK CARSON, JOHN Villar Ot V72.84 08/29/2014 SITA TURNER COMB WINDER Ot 562.11 08/29/2014 SITA TURNER COMB WINDER Ot 789.00 11/02/2014 SUMIT KEENE DO Ot 562.10 11/22/2014 SUMIT KEENE DO Ot 562.10 04/14/2017 LISANDRO DO, EUGENE K Ot F12.10 CANNABIS ABUSE, UNCOMPLICATED 04/14/2017 LISANDRO , EUGENE K Ot F17.210 NICOTINE DEPENDENCE, CIGARETTES, UNCOMPL 04/14/2017 LISANDRO , EUGENE K Ot F41.9 ANXIETY DISORDER, UNSPECIFIED 04/14/2017 LISANDRO , EUGENE K Ot J45.909 UNSPECIFIED ASTHMA, UNCOMPLICATED 04/14/2017 LISANDRO DO, EUGENE K Ot K21.9 GASTRO-ESOPHAGEAL REFLUX DISEASE WITHOUT 04/14/2017 LISANDRO DO, EUGENE K Ot R10.13 EPIGASTRIC PAIN 04/14/2017 LISANDRO , EUGENE K Ot Z88.1 ALLERGY STATUS TO OTHER ANTIBIOTIC AGENT 04/16/2017 LISANDRO , EUGENE K Ot F12.10 CANNABIS ABUSE, UNCOMPLICATED 04/16/2017 LISANDRO DO, EUGENE K Ot F17.210 NICOTINE DEPENDENCE, CIGARETTES, UNCOMPL 04/16/2017 LISANDRO DO, EUGENE K Ot F41.9 ANXIETY DISORDER, UNSPECIFIED 04/16/2017 LISANDRO , EUGENE K Ot J45.909 UNSPECIFIED ASTHMA, UNCOMPLICATED 04/16/2017 LISANDRO , EUGENE K Ot K21.9 GASTRO-ESOPHAGEAL REFLUX DISEASE WITHOUT 04/16/2017 LISANDRO , EUGENE K Ot R10.13 EPIGASTRIC PAIN 04/16/2017 LISANDRO , EUGENE K Ot Z88.1 ALLERGY STATUS TO OTHER ANTIBIOTIC AGENT 04/28/2017 SUMIT KEENE DO Ot R10.13 EPIGASTRIC PAIN 04/28/2017 SUMIT KEENE DO Ot R93.3 ABNORMAL FINDINGS ON DX IMAGING OF PRT D 05/05/2017 SUMIT KEENE DO Ot K82.4 CHOLESTEROLOSIS OF GALLBLADDER 05/05/2017 SUMIT KEENE DO Ot Z01.818 ENCOUNTER FOR OTHER PREPROCEDURAL EXAMIN 05/06/2017 SUMIT KEENE DO Ot F12.90 CANNABIS USE, UNSPECIFIED, UNCOMPLICATED 05/06/2017 SUMIT KEENE DO Ot F17.210 NICOTINE DEPENDENCE, CIGARETTES, UNCOMPL 05/06/2017 SUMIT KEENE DO Ot I10 ESSENTIAL (PRIMARY) HYPERTENSION 05/06/2017 SUMIT KEENE DO Ot K81.1 CHRONIC CHOLECYSTITIS 05/06/2017 SUMIT KEENE DO Ot Z79.899 OTHER DETENTION (CURRENT) DRUG THERAPY 05/11/2017 SUMIT KEENE DO Ot F12.90 CANNABIS USE, UNSPECIFIED, UNCOMPLICATED 05/11/2017 SUMIT KEENE DO Ot F17.210 NICOTINE DEPENDENCE, CIGARETTES, UNCOMPL 05/11/2017 SUMIT KEENE DO Ot I10 ESSENTIAL (PRIMARY) HYPERTENSION 05/11/2017 SUMIT KEENE DO Ot K81.1 CHRONIC CHOLECYSTITIS 05/11/2017 SUMIT KEENE DO Ot Z79.899 OTHER DETENTION (CURRENT) DRUG THERAPY 05/13/2017 SUMIT KEENE DO Ot F12.90 CANNABIS USE, UNSPECIFIED, UNCOMPLICATED 05/13/2017 SUMIT KEENE DO Ot F17.210 NICOTINE DEPENDENCE, CIGARETTES, UNCOMPL 05/13/2017 SUMIT KEENE DO Ot I10 ESSENTIAL (PRIMARY) HYPERTENSION 05/13/2017 SUMIT KEENE DO Ot K81.1 CHRONIC CHOLECYSTITIS 05/13/2017 SUMIT KEENE DO Ot Z79.899 OTHER BRICK HANDLER (CURRENT) DRUG THERAPY 05/14/2017 SUMIT KEENE DO Ot R10.13 EPIGASTRIC PAIN 05/14/2017 SUMIT KEENE DO Ot R93.3 ABNORMAL FINDINGS ON DX IMAGING OF PRT D 07/15/2017 HORACIO SIMPSON DO Ot F12.90 CANNABIS USE, UNSPECIFIED, UNCOMPLICATED 07/28/2017 HORACIO SIMPSON DO Ot F12.90 CANNABIS USE, UNSPECIFIED, UNCOMPLICATED Procedures Code Description [place] [address] STOOL FOR O & P 02/01/2012 19488 EXCISION BENIGN LESION 1.1- 2 cm (specify location in [facility] descriiption) 04/11/2013 Emanuel Johnson 09/22/2013 GENERAL S SUMIT KEENE 09/22/2013 Results Test Result Range Complete blood count (CBC) with automated white blood cell (WBC) differential - 04/14/17 15:15 Blood leukocytes automated count (number/volume) 6.8 10*3/uL 4.3-11.0 Blood erythrocytes automated count (number/volume) 5.30 10*6/uL 4.35-5.85 Venous blood hemoglobin measurement (mass/volume) 15.9 g/dL 13.3-17.7 Blood hematocrit (volume fraction) 44 % 40-54 Automated erythrocyte mean corpuscular volume 82 [foz_us] 80-99 Automated erythrocyte mean corpuscular hemoglobin (mass per erythrocyte) 30 pg 25-34 Automated erythrocyte mean corpuscular hemoglobin concentration measurement ( mass/volume) 37 g/dL 32-36 Automated erythrocyte distribution width ratio 12.4 % 10.0-14.5 Automated blood platelet count (count/volume) 175 10*3/uL 130-400 Automated blood platelet mean volume measurement 11.1 [foz_us] 7.4-10.4 Automated blood neutrophils/100 leukocytes 54 % 42-75 Automated blood lymphocytes/100 leukocytes 36 % 12-44 Blood monocytes/100 leukocytes 9 % 0-12 Automated blood eosinophils/100 leukocytes 2 % 0-10 Automated blood basophils/100 leukocytes 0 % 0-10 Blood neutrophils automated count (number/volume) 3.6 10*3 1.8-7.8 Blood lymphocytes automated count (number/volume) 2.4 10*3 1.0-4.0 Blood monocytes automated count (number/volume) 0.6 10*3 0.0-1.0 Automated eosinophil count 0.1 10*3/uL 0.0-0.3 Automated blood basophil count (count/volume) 0.0 10*3/uL 0.0-0.1 Comprehensive metabolic panel - 04/14/17 15:15 Serum or plasma sodium measurement (moles/volume) 141 mmol/L 135-145 Serum or plasma potassium measurement (moles/volume) 4.0 mmol/L 3.6-5.0 Serum or plasma chloride measurement (moles/volume) 111 mmol/L 98-107 Carbon dioxide 21 mmol/L 21-32 Serum or plasma anion gap determination (moles/volume) 9 mmol/L 5-14 Serum or plasma urea nitrogen measurement (mass/volume) 11 mg/dL 7-18 Serum or plasma creatinine measurement (mass/volume) 0.84 mg/dL 0.60-1.30 Serum or plasma urea nitrogen/creatinine mass ratio 13 NRG Serum or plasma creatinine measurement with calculation of estimated glomerular filtration rate > NRG Serum or plasma glucose measurement (mass/volume) 89 mg/dL 70-105 Serum or plasma calcium measurement (mass/volume) 9.5 mg/dL 8.5-10.1 Serum or plasma total bilirubin measurement (mass/volume) 0.5 mg/dL 0.1-1.0 Serum or plasma alkaline phosphatase measurement (enzymatic activity/volume) 81 U/L 40-136 Serum or plasma aspartate aminotransferase measurement (enzymatic activity/ volume) 15 U/L 5-34 Serum or plasma alanine aminotransferase measurement (enzymatic activity/volume ) 25 U/L 0-55 Serum or plasma protein measurement (mass/volume) 6.9 g/dL 6.4-8.2 Serum or plasma albumin measurement (mass/volume) 4.0 g/dL 3.2-4.5 Magnesium - 04/14/17 15:15 Magnesium 1.8 mg/dL 1.8-2.4 Serum or plasma amylase measurement (enzymatic activity/volume) - 04/14/17 15: 15 Serum or plasma amylase measurement (enzymatic activity/volume) 79 U /L 25-125 Lipase - 04/14/17 15:15 Lipase 18 U/L 8-78 Complete urinalysis with reflex to culture - 04/14/17 16:15 Urine color determination YELLOW NRG Urine clarity determination CLEAR NRG Urine pH measurement by test strip 6 5-9 Specific gravity of urine by test strip 1.015 1.016- 1.022 Urine protein assay by test strip, semi-quantitative NEGATIVE NEGATIVE Urine glucose detection by automated test strip NEGATIVE NEGATIVE Erythrocytes detection in urine sediment by light microscopy NEGATIVE NEGATIVE Urine ketones detection by automated test strip NEGATIVE NEGATIVE Urine nitrite detection by test strip NEGATIVE NEGATIVE Urine total bilirubin detection by test strip NEGATIVE NEGATIVE Urine urobilinogen measurement by automated test strip (mass/volume) NORMAL NORMAL Urine leukocyte esterase detection by dipstick 1+ NEGATIVE Automated urine sediment erythrocyte count by microscopy (number/high power field) NONE NRG Automated urine sediment leukocyte count by microscopy (number/high power field ) [HPF] NRG Bacteria detection in urine sediment by light microscopy NONE NRG Crystals detection in urine sediment by light microscopy NONE NRG Casts detection in urine sediment by light microscopy NONE NRG Mucus detection in urine sediment by light microscopy NEGATIVE NRG Complete urinalysis with reflex to culture NO NRG Urine drug screening test - 04/14/17 16:15 Urine phencyclidine detection by screening method NEGATIVE NEGATIVE Urine benzodiazepines detection by screening method NEGATIVE NEGATIVE Urine cocaine detection NEGATIVE NEGATIVE Urine amphetamines detection by screening method POSITIVE NEGATIVE Urine methamphetamine detection by screening method POSITIVE NEGATIVE Urine cannabinoids detection by screening method POSITIVE NEGATIVE Urine opiates detection by screening method NEGATIVE NEGATIVE Urine barbiturates detection NEGATIVE NEGATIVE Screening urine tricyclic antidepressants detection NEGATIVE NEGATIVE Urine methadone detection by screening method NEGATIVE NEGATIVE Urine oxycodone detection NEGATIVE NEGATIVE Urine propoxyphene detection NEGATIVE NEGATIVE Urine drug screening test - 05/06/17 07:22 Urine phencyclidine detection by screening method NEGATIVE NEGATIVE Urine benzodiazepines detection by screening method NEGATIVE NEGATIVE Urine cocaine detection NEGATIVE NEGATIVE Urine amphetamines detection by screening method NEGATIVE NEGATIVE Urine methamphetamine detection by screening method NEGATIVE NEGATIVE Urine cannabinoids detection by screening method POSITIVE NEGATIVE Urine opiates detection by screening method NEGATIVE NEGATIVE Urine barbiturates detection NEGATIVE NEGATIVE Screening urine tricyclic antidepressants detection NEGATIVE NEGATIVE Urine methadone detection by screening method NEGATIVE NEGATIVE Urine oxycodone detection NEGATIVE NEGATIVE Urine propoxyphene detection NEGATIVE NEGATIVE Methicillin resistant Staphylococcus aureus (MRSA) screening culture - 07:22 Methicillin resistant Staphylococcus aureus (MRSA) screening culture NEG NRG Urine drug screening test - 07/13/17 15:41 Urine phencyclidine detection by screening method NEGATIVE NEGATIVE Urine benzodiazepines detection by screening method NEGATIVE NEGATIVE Urine cocaine detection NEGATIVE NEGATIVE Urine amphetamines detection by screening method NEGATIVE NEGATIVE Urine methamphetamine detection by screening method NEGATIVE NEGATIVE Urine cannabinoids detection by screening method POSITIVE NEGATIVE Urine opiates detection by screening method NEGATIVE NEGATIVE Urine barbiturates detection NEGATIVE NEGATIVE Screening urine tricyclic antidepressants detection NEGATIVE NEGATIVE Urine methadone detection by screening method NEGATIVE NEGATIVE Urine oxycodone detection NEGATIVE NEGATIVE Urine propoxyphene detection NEGATIVE NEGATIVE Encounters ACCT No. Visit Date/Time Discharge Status Pt. Type Provider Facility Loc./Unit Complaint [id number] 10/10/2013 15:29:00 10/10/2013 23:59:59 CLS Outpatient REBA MCGHEE APRN [id number] 09/22/2013 14:01:00 09/22/2013 23:59:59 CLS Outpatient REBA MCGHEE APRN [id number] 04/11/2013 15:17:00 04/11/2013 23:59:59 CLS Outpatient REBA MCGHEE APRN [id number] 04/04/2013 15:29:00 04/04/2013 23:59:59 CLS Outpatient REBA MCGHEE APRN [id number] 02/01/2012 12:34:00 02/01/2012 23:59:59 CLS Outpatient DWAIN LEIGH DO [id number] 12/30/2011 13:56:00 12/30/2011 23:59:59 CLS Outpatient DWAIN LEIGH DO [id number] 10/03/2012 15:03:00 Document Registration [id number] 10/30/2014 11:17:50 ACT Document Registration [id number] 07/13/2017 15:29:00 07/13/2017 23:59:59 CLS Outpatient HORACIO SIMPSON DO [facility] LAB POSITIVE THC [id number] 05/06/2017 10:00:00 05/06/2017 23:59:59 CLS Preadmit SUMIT KEENE DO [facility] CARD R10.13 ABDOMINAL PAIN, EPIGASTRIC [id number] 05/06/2017 07:15:00 05/06/2017 11:41:00 DIS Outpatient SUMIT KEENE DO [facility] GALLBLADDER POLYP [id number] 05/04/2017 08:43:00 05/04/2017 10:31:00 DIS Outpatient SUMIT KEENE DO [facility] PREOP LAP. FARHAN [id number] 04/30/2017 09:15:00 04/30/2017 23:59:59 CLS Preadmit SUMIT KEENE DO [facility] RAD R10.13 ABDOMINAL PAIN, EPIGASTRIC [id number] 04/27/2017 08:51:00 04/27/2017 23:59:59 CLS Outpatient SUMIT KEENE DO [facility] RAD R10.13 ABDOMINAL PAIN, EPIGASTRIC [id number] 04/14/2017 13:46:00 04/14/2017 16:59:00 DIS Emergency EUGENE MCMAHON DO [facility] ER ABD PAIN [id number] 10/30/2014 11:17:00 10/30/2014 23:59:59 CLS Outpatient SUMIT KEENE DO [facility] SDC [id number] 10/25/2014 05:54:00 10/25/2014 23:59:59 CLS Outpatient SUMIT KEENE DO [facility] PREOP [id number] 08/29/2014 12:20:00 08/29/2014 16:35:00 DIS Emergency SITA TURNER APRN [facility] ER [id number] 08/15/2014 21:57:00 08/15/2014 23:27:00 DIS Emergency EUGENE MCMAHON DO [facility] ER [id number] 09/19/2013 01:26:00 09/19/2013 03:43:00 DIS Emergency REBA SUN DO [facility] ER [id number] 05/23/2013 16:11:00 05/23/2013 23:59:59 CLS Outpatient [id number] 10/10/2012 11:01:00 10/10/2012 13:00:00 DIS Outpatient JOHN JUÁREZ MD [facility] [id number] 10/05/2012 07:16:00 10/05/2012 23:59:59 CLS Outpatient JOHN JUÁREZ MD [facility] PREOP [id number] 08/15/2014 21:57:00 Document Registration [id number] 08/15/2014 21:57:00 Document Registration [id number] 01/15/2017 13:40:00 01/15/2017 23:59:59 CLS Outpatient REBA MCGHEE APRN [facility]
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
[2017-12-28] MEDS ORDERED: KETOROLAC 30 MG/ML VIAL IVP ONE (03:30)
[2017-12-28] MEDS ORDERED: KETOROLAC 30 MG/ML VIAL IM ONE (03:45)
[2017-12-28 03:50] VITALS: BP 169/95
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
== END 2017-12-28 03:54 | disposition home or self-care (01) ==
LOC: EDUNIT# 01:38 → ER 01:39
DX: S06.0X1A Concussion with loss of consciousness of 30 minutes or less, initial encounter (principal); S91.115A Laceration without foreign body of left lesser toe(s) without damage to nail, initial encounter; M79.641 Pain in right hand; J45.909 Unspecified asthma, uncomplicated; I10 Essential (primary) hypertension; K21.9 Gastro-esophageal reflux disease without esophagitis; F41.9 Anxiety disorder, unspecified; R40.2142 Coma scale, eyes open, spontaneous, at arrival to emergency department; R40.2252 Coma scale, best verbal response, oriented, at arrival to emergency department; R40.2362 Coma scale, best motor response, obeys commands, at arrival to emergency department; F17.210 Nicotine dependence, cigarettes, uncomplicated; Z88.0 Allergy status to penicillin; Z87.19 Personal history of other diseases of the digestive system; Z79.51 Long term (current) use of inhaled steroids; Y04.8XXA Assault by other bodily force, initial encounter
CPT/HCPCS: 70450; 70486; 72125; 73130; 96372

== ENCOUNTER 2018-05-27 14:28 | Emergency (ER) | payer MEDICAID ==
[~2018-05-27] VITALS: Ht 182.9 cm; Wt 83.9 kg
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
[2018-05-27] MEDS ORDERED: clonazePAM 1 MG (KlonoPIN) TAB PO ONE (15:30)
--- NOTE | 2018-05-27 15:38 | NUR ---
PHARMACY CONTACTED FOR MED.
--- NOTE | 2018-05-27 15:55 | NUR ---
PT REQUESTING TO TALK TO JEAN PIERRE NOTIFEID.
[2018-05-27] MEDS ORDERED: CLON1TAB PO (16:17)
[2018-05-27] MEDS ORDERED: CEPH-507 PO (16:17)
[2018-05-27 16:18] VITALS: BP 162/102
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
== END 2018-05-27 16:18 | disposition home or self-care (01) ==
LOC: EDUNIT# 14:28 → ER 14:30
DX: L08.9 Local infection of the skin and subcutaneous tissue, unspecified (principal); F41.0 Panic disorder [episodic paroxysmal anxiety]; K58.9 Irritable bowel syndrome, unspecified; K21.9 Gastro-esophageal reflux disease without esophagitis; I10 Essential (primary) hypertension; J45.909 Unspecified asthma, uncomplicated; Z87.19 Personal history of other diseases of the digestive system; Z88.1 Allergy status to other antibiotic agents
CPT/HCPCS: 70450; 72125

== ENCOUNTER → 2018-12-19 | Outpatient (CLI) | payer MEDICAID ==
[~2018-12-19] MED LIST changes: +CEPH-507 PO; +CLON1TAB PO
--- NOTE | 2018-12-19 11:08 | Diagnostic Imaging Report ---
PROCEDURE: MR imaging cervical spine without contrast. TECHNIQUE: Multiplanar, multisequence MR imaging of the cervical spine was performed without contrast. INDICATION: Neck pain. COMPARISON: No prior studies are available for comparison. FINDINGS: Curvature and alignment of the cervical spine is normal. Vertebral body heights and marrow signal are normal. No geographic marrow lesion is seen. There is fairly normal height and signal intensity to the cervical disks. Rudimentary disc at the C7-T1 level is noted which is likely congenital. Cervical spinal cord demonstrates normal homogeneous signal intensity and normal morphology. Craniocervical junction is unremarkable. C2-C3: Central canal and neural foramina are widely patent. C3-C4: Minimal endplate changes are noted but no central canal or neural foraminal narrowing is seen. C4-C5: Minimal endplate osteophyte changes are noted but no significant central canal or neural foraminal narrowing is seen. C5-C6: No central canal or neural foraminal stenosis is detected. C6-C7: There are some endplate osteophyte changes but no central canal or neural foraminal stenosis is seen. C7-T1: No central canal or neural foraminal narrowing is seen. IMPRESSION: Very mild degenerative changes. No focal disc protrusion is seen. No central canal or neural foraminal stenosis is detected. Dictated by: Dictated on workstation # [id number]
== END ==
LOC: RAD 09:48
PROVIDERS: ATTEND Nurse Practitioner Community Health
DX: M47.22 Other spondylosis with radiculopathy, cervical region (principal)
CPT/HCPCS: 72141

== ENCOUNTER 2021-04-12 09:23 | Emergency (ER) | payer MEDICAID ==
[~2021-04-12] VITALS: Ht 180 cm; Wt 90.7 kg
[~2021-04-12 09:23] MED LIST changes: -PANT40TA3 PO; +PANT40TA52 PO
[2021-04-12 09:32] VITALS: BP_SYST 131; BP_SYST 132; BP_SYST 134; BP_DIAS 84; BP_DIAS 89; BP_DIAS 96
--- NOTE | 2021-04-12 09:44 | ED General ---
General Stated Complaint: SPARKS,MUSCLE PAIN Source of Information: Patient Exam Limitations: No Limitations History of Present Illness Date Seen by Provider: Apr 12, 2021 Time Seen by Provider: 09:24 Initial Comments Patient to ER by private conveyance from home with significant other and chief complaint of 1 day of body aches malaise feeling like he is going to pass out nausea headache and a fever of 103.5. No cough or shortness of air. Allergies and Home Medications Allergies Coded Allergies: Penicillins (Verified Allergy, Unknown, RASH, 04/12/21) amoxicillin (Verified Allergy, Unknown, 09/15/05) Patient Home Medication List Home Medication List Reviewed: Yes Cephalexin (Keflex) 500 Mg Capsule, 500 MG PO TID Prescribed by: SITA TURNER on 05/27/18 1617 Clonazepam (Clonazepam) 1 Mg Tablet, 1 MG PO TID PRN for ANXIETY, (Reported) Entered as Reported by: FERDINAND JENKINS on 05/04/17 1016 Clonazepam (Klonopin) 1 Mg Tablet, 1 MG PO BID PRN for ANXIETY Prescribed by: SITA TURNER on 05/27/18 1617 Docusate Sodium (Colace) 100 Mg Capsule, 100 MG PO DAILY Prescribed by: SUMIT KEENE on 05/06/17 0957 Fluticasone Propionate (Fluticasone Propionate) 16 Gm [place].susp, 1 SPRAY NSEACH DAILY, (Reported) Entered as Reported by: FERDINAND JENKINS on 05/04/17 1016 Hydrocodone Bit/Acetaminophen (Lortab 5 Mg Tablet) 1 Tab Tab, 1 TAB PO Q4H PRN Prescribed by: SUMIT KEENE on 05/06/17 0957 Hyoscyamine Sulfate (Hyoscyamine Sulfate) 0.125 Mg Tab.subl, 0.125 MG SL Q4H PRN for ABDOMINAL PAIN, (Reported) Entered as Reported by: FERDINAND JENKINS on 05/04/17 1016 Loratadine (Loratadine) 10 Mg Tablet, 10 MG PO DAILY, (Reported) Entered as Reported by: FERDINAND JENKINS on 05/04/17 1016 Pantoprazole Sodium (Pantoprazole Sodium) 40 Mg Tablet.dr, 40 MG PO DAILY, (Reported) Entered as Reported by: FERDINAND JENKINS on 05/04/17 1016 Sucralfate (Sucralfate) 1 Gm Tablet, 1 GM PO ACHS, (Reported) Entered as Reported by: FERDINAND JENKINS on 05/04/17 1016 Review of Systems Review of Systems Constitutional: No chills, No diaphoresis EENTM: No ear discharge, No ear pain Respiratory: No cough, No dyspnea on exertion Cardiovascular: see HPI; No chest pain, No palpitations; syncope Gastrointestinal: No abdominal pain, No constipation, No nausea Genitourinary: No discharge, No dysuria Musculoskeletal: No back pain, No joint pain Skin: No pruritus, No rash All Other Systems Reviewed Negative Unless Noted: Yes Past Ecpvxzo-Lbwyyh-Cxehui Hx Patient Social History Tobacco Use?: Yes Use of E-Cig and/or Vaping dev: No Immunizations Up To Date Tetanus Booster (TDap): Less than 5yrs Seasonal Allergies Seasonal Allergies: Yes Past Medical History Surgeries: Yes (DENTAL SURGERY, EGD/COLONOSCOPY) Respiratory: Yes Asthma Cardiac: Yes Hypertension Neurological: No Reproductive Disorders: No Genitourinary: No Gastrointestinal: Yes ([place] DISEASE) Gastroesophageal Reflux, Diverticulosis, Irritable Bowel Musculoskeletal: Yes (CHRONIC KNEE PAIN) Chronic Back Pain Endocrine: No HEENT: No Cancer: No Psychosocial: Yes ("PANIC ATTACKS") Anxiety Integumentary: No Blood Disorders: No Physical Exam Vital Signs Vital Signs - First Documented 04/12/21 04/12/21 09:32 09:45 Temp 36.9 Pulse 90 86 84 Resp 20 B/P (MAP) 134/84 (101) 131/89 (103) 132/96 (108) O2 Delivery Room Air Capillary Refill : Height, Weight, BMI Height: 6'0" Weight: 185lbs. 0.0oz. [id number]; 27.7 BMI Method:Stated General Appearance: Anxious Eyes: Bilateral Eye Normal Inspection, Bilateral Eye PERRL, Bilateral Eye EOMI HEENT: PERRL/EOMI, Pharynx Normal, Moist Mucous Membranes Neck: Full Range of Motion, Normal Inspection, Non Tender Respiratory: Lungs Clear, Normal Breath Sounds, No Accessory Muscle Use, No Respiratory Distress Cardiovascular: Regular Rate, Rhythm, No Edema, Normal Peripheral Pulses Gastrointestinal: Normal Bowel Sounds, Non Tender, Soft Extremity: Normal Capillary Refill, Normal Inspection Neurologic/Psychiatric: Alert, Oriented x3, No Motor/Sensory Deficits Progress/Results/Core Measures Suspected Sepsis SIRS Temperature: Pulse: Respiratory Rate: Laboratory Tests 04/12/21 10:13: White Blood Count 5.6 Blood Pressure / Mean: Laboratory Tests 04/12/21 10:13: Creatinine 1.15, Platelet Count 150, Total Bilirubin 0.8 Results/Orders Lab Results Laboratory Tests Test 04/12/21 09:32 04/12/21 10:13 Range/Units Influenza Type A Antigen NEGATIVE NEGATIVE Influenza Type B Antigen NEGATIVE NEGATIVE White Blood Count 5.6 4.3-11.0 10^3/uL Red Blood Count 5.29 4.30-5.52 10^6/uL Hemoglobin 15.6 13.3-17.7 g/dL Hematocrit 45 40-54 % Mean Corpuscular Volume 86 80-99 fL Mean Corpuscular Hemoglobin 30 25-34 pg Mean Corpuscular Hemoglobin Concent 34 32-36 g/dL Red Cell Distribution Width 12.0 10.0-14.5 % Platelet Count 150 130-400 10^3/uL Mean Platelet Volume 11.2 9.0-12.2 fL Immature Granulocyte % (Auto) 0 % Neutrophils (%) (Auto) 72 42-75 % Lymphocytes (%) (Auto) 7 L 12-44 % Monocytes (%) (Auto) 21 H 0-12 % Eosinophils (%) (Auto) 0 0-10 % Basophils (%) (Auto) 0 0-10 % Neutrophils # (Auto) 4.0 1.8-7.8 10^3/uL Lymphocytes # (Auto) 0.4 L 1.0-4.0 10^3/uL Monocytes # (Auto) 1.1 H 0.0-1.0 10^3/uL Eosinophils # (Auto) 0.0 0.0-0.3 10^3/uL Basophils # (Auto) 0.0 0.0-0.1 10^3/uL Immature Granulocyte # (Auto) 0.0 0.0-0.1 10^3/uL Neutrophils % (Manual) 72 % Lymphocytes % (Manual) 6 % Monocytes % (Manual) 22 % Blood Morphology Comment NORMAL Sodium Level 134 L 135-145 MMOL/L Potassium Level 3.4 L 3.6-5.0 MMOL/L Chloride Level 103 98-107 MMOL/L Carbon Dioxide Level 19 L 21-32 MMOL/L Anion Gap 12 5-14 MMOL/L Blood Urea Nitrogen 10 7-18 MG/DL Creatinine 1.15 0.60-1.30 MG/DL Estimat Glomerular Filtration Rate 85 BUN/Creatinine Ratio 9 Glucose Level 87 70-105 MG/DL Calcium Level 9.4 8.5-10.1 MG/DL Corrected Calcium 9.2 8.5-10.1 MG/DL Total Bilirubin 0.8 0.1-1.0 MG/DL Aspartate Amino Transf (AST/SGOT) 32 5-34 U/L Alanine Aminotransferase (ALT/SGPT) 40 0-55 U/L Alkaline Phosphatase 87 40-136 U/L Total Creatine Kinase 93 30-200 U/L C-Reactive Protein High Sensitivity 3.48 H 0.00-0.50 MG/DL Total Protein 7.5 6.4-8.2 GM/DL Albumin 4.3 3.2-4.5 GM/DL Lipase 32 8-78 U/L My Orders Orders - TRE CASTRO Coronavirus Sars-Cov-2 So 2019 (04/12/21 09:36) Influenza A & B Antigens (04/12/21 09:36) Orthostatic Vital Signs (Adult (04/12/21 09:36) Ed Iv/Invasive Line Start (04/12/21 10:05) Lactated Ringers (Lr 1000 Ml Iv Solution (04/12/21 10:15) Ketorolac Injection (Toradol Injection) (04/12/21 10:15) Ondansetron Injection (Zofran Injectio (04/12/21 10:15) Cbc With Automated Diff (04/12/21 10:05) Comprehensive Metabolic Panel (04/12/21 10:05) Hs C Reactive Protein (04/12/21 10:05) Lipase (04/12/21 10:05) Creatine Kinase (04/12/21 10:05) Lactated Ringers (Lr 1000 Ml Iv Solution (04/12/21 10:06) Ondansetron Injection (Zofran Injectio (04/12/21 10:08) Ketorolac Injection (Toradol Injection) (04/12/21 10:08) Famotidine Tablet (Pepcid Tablet) (04/12/21 10:30) Manual Differential (04/12/21 10:13) Medications Given in ED Current Medications Medications Dose Ordered Sig/Luis Miguel Route Start Time Stop Time Status Last Admin Dose Admin Famotidine 20 mg ONCE ONCE PO 04/12/21 10:30 04/12/21 10:31 DC 04/12/21 10:32 20 MG Ketorolac Tromethamine 30 mg ONCE ONCE IVP 04/12/21 10:15 04/12/21 10:16 DC 04/12/21 10:26 30 MG Lactated Ringer's 1,000 ml @ 0 mls/hr Q0M ONCE IV 04/12/21 10:15 04/12/21 10:16 DC 04/12/21 10:22 1,000 MLS/HR Ondansetron HCl 4 mg ONCE ONCE IVP 04/12/21 10:15 04/12/21 10:16 DC 04/12/21 10:24 4 MG Vital Signs/I&O 04/12/21 04/12/21 09:32 09:45 Temp 36.9 Pulse 90 96 86 84 Resp 20 B/P (MAP) 134/84 (101) 141/80 (100) 131/89 (103) 132/96 (108) O2 Delivery Room Air Capillary Refill : Progress Note #1: Time: 09:43 Progress Note Patient has body aches fever malaise plan to give him something for pain and/body aches and nausea. We will do some orthostatics. If he is positive we will initiate an IV and do some labs. He has a nonsurgical abdomen. Aseptic vital signs, heart rate 92 after walking to the room. He appears to have a viral syndrome. Covid and influenza swab Progress Note #2: Time: 11:27 Progress Note Patient states he feels remarkably better. No nausea. Pain significantly improved. Plan sending home with nausea medicines and instructions to follow-up with his GI doctor as necessary. Return precautions were discussed Departure Impression Primary Impression: Gastroenteritis Disposition: 01 HOME, SELF-CARE Condition: Stable Departure-Patient Inst. Decision time for Depature: 11:27 Referrals: [facility] (PCP/Family) Primary Care Physician Patient Instructions: Viral Gastroenteritis, Adult (DC) Add. Discharge Instructions: Zofran 1 tablet every 6 hours as necessary for nausea and/or vomiting. Tums, Maalox, Mylanta, Rolaids etc. as necessary for burning or pain. Tylenol Motrin as necessary for pain. Follow-up with your GI doctor as scheduled. Scripts Ondansetron (Ondansetron Odt) 4 Mg Tab.rapdis 4 MG PO Q6H PRN for NAUSEA/VOMITING, #15 TAB 0 Refills Prov: TRE CASTRO 04/12/21 TRE CASTRO Apr 12, 2021 09:44
[2021-04-12] MEDS ORDERED: LACTATED RINGERS 1,000 ML IV ONE ×2 (10:06→10:15)
[2021-04-12] MEDS ORDERED: ONDANSETRON 4 MG/2 ML (SDV) Z0FRAN ONE (10:08)
[2021-04-12] MEDS ORDERED: KETOROLAC 30 MG/ML VIAL ONE (10:08)
[2021-04-12] MEDS ORDERED: ONDANSETRON 4 MG/2 ML (SDV) Z0FRAN IVP ONE (10:15)
[2021-04-12] MEDS ORDERED: KETOROLAC 30 MG/ML VIAL IVP ONE (10:15)
[2021-04-12 10:25] LABS: BASOPHILS % (AUTO) 0 % (0-10); EOSINOPHILS % (AUTO) 0 % (0-10); HEMATOCRIT 45 % (40-54); HEMOGLOBIN 15.6 g/dL (13.3-17.7); LYMPHOCYTES # (AUTO) 0.4 10^3/uL (1.0-4.0); LYMPHOCYTES % (AUTO) 7 % (12-44); MEAN CORPUSCULAR HEMOGLOBIN 30 pg (25-34); MEAN CORPUSCULAR HGB CONC 34 g/dL (32-36); MEAN CORPUSCULAR VOLUME 86 fL (80-99); MEAN PLATELET VOLUME 11.2 fL (9.0-12.2); MONOCYTES # (AUTO) 1.1 10^3/uL (0.0-1.0); MONOCYTES % (AUTO) 21 % (0-12); NEUTROPHILS % (AUTO) 72 % (42-75); PLATELET COUNT 150 10^3/uL (130-400); WHITE BLOOD COUNT 5.6 10^3/uL (4.3-11.0)
[2021-04-12] MEDS ORDERED: FAMOTIDINE 20 MG (PEPCID) TABLET PO ONE (10:30)
[2021-04-12 10:37] LABS: ALBUMIN 4.3 GM/DL (3.2-4.5); POTASSIUM 3.4 MMOL/L (3.6-5.0)
[2021-04-12 10:38] LABS: CALCIUM 9.4 MG/DL (8.5-10.1)
[2021-04-12 10:40] LABS: TOTAL PROTEIN 7.5 GM/DL (6.4-8.2)
[2021-04-12 10:41] LABS: BILIRUBIN,TOTAL 0.8 MG/DL (0.1-1.0)
[2021-04-12 10:43] LABS: CREATININE SERUM 1.15 MG/DL (0.60-1.30)
[2021-04-12 10:51] LABS: LYMPHOCYTES % (MANUAL) 6 %; MONOCYTES % (MANUAL) 22 %; NEUTROPHILS % (MANUAL) 72 %; RBC MORPH NORMAL
[2021-04-12] MEDS ORDERED: ONDA4TAB11 PO (11:28)
[2021-04-12 11:34] VITALS: BP 140/91
== END 2021-04-12 11:34 | disposition home or self-care (01) ==
LOC: EDUNIT# 09:23 → ER 09:25
DX: U07.1 COVID-19 (principal); K52.9 Noninfective gastroenteritis and colitis, unspecified; I10 Essential (primary) hypertension; J45.909 Unspecified asthma, uncomplicated; K21.9 Gastro-esophageal reflux disease without esophagitis; G89.29 Other chronic pain; M54.9 Dorsalgia, unspecified; F41.9 Anxiety disorder, unspecified; Z79.51 Long term (current) use of inhaled steroids; Z79.891 Long term (current) use of opiate analgesic; Z79.899 Other long term (current) drug therapy
CPT/HCPCS: 36415; 80053; 82550; 83690; 85007; 85027; 86141; 87635; 87804